=== PATIENT | male | born 1940 | race Caucasian/White ===

== ENCOUNTER → 2016-10-21 | Outpatient (CLI) | payer MEDICARE, OTHER ==
[~2016-10-21] MED LIST: ASPI-247 GT; ATEN50TA OR; SIMIVASTIN
[2016-10-21 08:56] LABS: Basophils # (auto) 0 uL; Basophils % (auto) 0.5 % (0.0-2.0); Eosinophils # (auto) 0.2 uL; Hematocrit 40.5 % (41.0-53.0); Hemoglobin 13.4 g/dL (13.5-17.5); Lymphocytes # (auto) 1.5 uL; Lymphocytes % (auto) 23.4 % (10.0-50.0); Mean Corpuscular Hemoglobin 30.3 pg (28.0-32.0); Mean Corpuscular Hgb Conc. 33.2 g/dL (32.0-36.0); Mean Corpuscular Volume 91.3 fL (80.0-100.0); Mean Platelet Volume 9.3 fL (7.4-10.4); Monocytes # (auto) 0.7 uL; Monocytes % (auto) 10.7 % (0.0-12.0); Neutrophils % (auto) 62.4 % (37.0-80.0); Platelet Count (auto) 189 10^3/uL (140-450); Red Cell Distribution Width 13.8 % (11.6-16.0); White Blood Cell 6.4 10^3/uL (4.4-10.8)
[2016-10-21 09:30] LABS: Albumin 3.8 g/dL (3.4-5.0); BUN/Creatinine Ratio 19.7; Bilirubin, Total 0.6 mg/dL (0.2-1.0); Calcium 8.6 mg/dL (8.5-10.1); Potassium 3.7 mmol/L (3.5-5.1); Total Protein 7.6 g/dL (6.4-8.2)
[2016-10-21 10:01] LABS: Urine RBC None Seen /hpf (0 - 3)
[2016-10-21 10:22] LABS: Urine Bilirubin Negative (Negative); Urine Blood Negative /uL (Negative); Urine Color Yellow (Yellow); Urine Glucose Normal (Normal); Urine Ketone Negative (Negative); Urine Nitrite Negative (Negative); Urine Squamous Epithelial Cell FEW /hpf (<5); Urine Urobilinogen Normal (Negative)
== END | disposition home or self-care (01) ==
LOC: LAB 07:39
PROVIDERS: ATTEND Internal Medicine
DX: R42 Dizziness and giddiness (principal); E11.9 Type 2 diabetes mellitus without complications
CPT/HCPCS: 36415; 80053; 80061; 81001; 82306; 84153; 84443; 85025

== ENCOUNTER 2016-11-25 07:54 | Emergency (ER) | payer MEDICARE, OTHER ==
[~2016-11-25] VITALS: Ht 167.6 cm; Wt 71.7 kg
[2016-11-25 09:07] LABS: Basophils # (auto) 0.1 uL; Basophils % (auto) 0.7 % (0.0-2.0); Eosinophils # (auto) 0.3 uL; Eosinophils % (auto) 2.4 % (0.0-7.0); Hematocrit 41.1 % (41.0-53.0); Hemoglobin 13.9 g/dL (13.5-17.5); Lymphocytes % (auto) 9.1 % (10.0-50.0); Mean Corpuscular Hemoglobin 30.6 pg (28.0-32.0); Mean Corpuscular Hgb Conc. 33.8 g/dL (32.0-36.0); Mean Corpuscular Volume 90.7 fL (80.0-100.0); Mean Platelet Volume 8.4 fL (7.4-10.4); Monocytes # (auto) 0.5 uL; Monocytes % (auto) 4.8 % (0.0-12.0); Neutrophils # (auto) 8.7 uL; Platelet Count (auto) 244 10^3/uL (140-450); Red Cell Distribution Width 13.6 % (11.6-16.0); White Blood Cell 10.5 10^3/uL (4.4-10.8)
[2016-11-25 09:26] LABS: Albumin 3.8 g/dL (3.4-5.0); BUN/Creatinine Ratio 19.5; Calcium 8.6 mg/dL (8.5-10.1); Potassium 3.8 mmol/L (3.5-5.1)
[2016-11-25 09:29] LABS: Bilirubin, Total 0.8 mg/dL (0.2-1.0); Total Protein 7.7 g/dL (6.4-8.2)
[2016-11-25 10:20] LABS: Partial Thromboplastin Time 26.2 sec (22.64-33.71)
[2016-11-25 13:47] LABS: INR 0.96 (0.9-1.15); Prothrombin Time 10.8 sec (9.37-12.3)
[2016-11-25 18:40] VITALS: BP 132/86
== END 2016-11-25 19:49 | disposition home or self-care (01) ==
LOC: ER 07:56
DX: K92.2 Gastrointestinal hemorrhage, unspecified (principal); T39.395A Adverse effect of other nonsteroidal anti-inflammatory drugs [NSAID], initial encounter; I25.10 Atherosclerotic heart disease of native coronary artery without angina pectoris; Z79.899 Other long term (current) drug therapy; Y92.89 Other specified places as the place of occurrence of the external cause
CPT/HCPCS: 36415; 71020; 74176; 80053; 85025; 85610; 85730; 94761

== ENCOUNTER → 2017-01-13 | Day surgery (SDC) | payer MEDICARE, OTHER ==
[2017-01-09 11:02] LABS: Basophils # (auto) 0 uL; Basophils % (auto) 0.7 % (0.0-2.0); CONDITION Y; Eosinophils # (auto) 0.3 uL; Eosinophils % (auto) 4.5 % (0.0-7.0); Hematocrit 40.3 % (41.0-53.0); Hemoglobin 13.7 g/dL (13.5-17.5); Lymphocytes # (auto) 1.5 uL; Lymphocytes % (auto) 22.2 % (10.0-50.0); Mean Corpuscular Hemoglobin 30.9 pg (28.0-32.0); Mean Corpuscular Volume 90.9 fL (80.0-100.0); Mean Platelet Volume 8.5 fL (7.4-10.4); Monocytes # (auto) 0.7 uL; Monocytes % (auto) 10.8 % (0.0-12.0); Neutrophils # (auto) 4.1 uL; Neutrophils % (auto) 61.8 % (37.0-80.0); Platelet Count (auto) 226 10^3/uL (140-450); Red Cell Distribution Width 13.9 % (11.6-16.0); White Blood Cell 6.6 10^3/uL (4.4-10.8)
[2017-01-09 11:17] LABS: INR 0.98 (0.9-1.15); Partial Thromboplastin Time 25.5 sec (22.64-33.71); Prothrombin Time 10.7 sec (9.37-12.3)
[~2017-01-13] VITALS: Ht 167.6 cm; Wt 77.1 kg
[~2017-01-13] MED LIST changes: -ASPI-247 GT; +ATEN100T PO; -ATEN50TA OR; +LIDOCAINE VISCOUS 2% 15ML UD ONE; +METF-370 PO; +MIDAZOLAM HCL 5 MG/ML-1ML VIAL ONE; +PANT40TA2 PO; +RANI-226 PO; -SIMIVASTIN; +SIMV80TA73 PO; +SODIUM CHLORIDE LOCK 10 ML ONE; +TRIA75TA55 PO; +diphenhdrAMINE HCL 50 MG/1 ML VL ONE; +fentaNYL CITRATE 100 MCG/2 ML VL ONE
[2017-01-13 10:33] VITALS: BP 133/75
== END | disposition home or self-care (01) ==
LOC: GI 07:00
PROVIDERS: ATTEND Internal Medicine Gastroenterology
DX: K44.9 Diaphragmatic hernia without obstruction or gangrene (principal); E11.9 Type 2 diabetes mellitus without complications; Z87.891 Personal history of nicotine dependence; Z90.49 Acquired absence of other specified parts of digestive tract
CPT/HCPCS: 36415; 43235; 82962; 85025; 85610; 85730; J2250

== ENCOUNTER → 2017-07-14 | Outpatient (CLI) | payer MEDICARE, OTHER ==
[~2017-07-14] MED LIST changes: -LIDOCAINE VISCOUS 2% 15ML UD ONE; -MIDAZOLAM HCL 5 MG/ML-1ML VIAL ONE; -SODIUM CHLORIDE LOCK 10 ML ONE; -diphenhdrAMINE HCL 50 MG/1 ML VL ONE; -fentaNYL CITRATE 100 MCG/2 ML VL ONE
== END | disposition home or self-care (01) ==
LOC: LAB 10:59
PROVIDERS: ATTEND Internal Medicine Gastroenterology
DX: K92.1 Melena (principal)
CPT/HCPCS: 82270

== ENCOUNTER → 2017-08-25 | Outpatient (CLI) | payer MEDICARE, OTHER ==
[~2017-08-25] MED LIST changes: +ADENOSINE 63 MG in GIVE UN-DILUTED 0 ML IV ONE; +ADENOSINE 90 MG/30 ML INJ IV ONE
[2017-08-25 12:17] LABS: Urine Blood Negative /uL (Negative)
[2017-08-25 12:29] LABS: Albumin 3.7 g/dL (3.4-5.0); BUN/Creatinine Ratio 22.2; Bilirubin, Total 0.6 mg/dL (0.2-1.0); Calcium 8.4 mg/dL (8.5-10.1); Potassium 3.9 mmol/L (3.5-5.1); Total Protein 7.9 g/dL (6.4-8.2)
[2017-08-25 12:30] LABS: Free T4 (Free Thyroxine) 1.09 ng/dL (0.89-1.76); Prostate Specific Antigen 0.31 ng/mL (0.0-4.0)
== END | disposition home or self-care (01) ==
LOC: Rad HDHVI 08:04
PROVIDERS: ATTEND Internal Medicine Cardiovascular Disease
DX: E78.00 Pure hypercholesterolemia, unspecified (principal); E78.5 Hyperlipidemia, unspecified; D64.9 Anemia, unspecified; I10 Essential (primary) hypertension; E03.9 Hypothyroidism, unspecified; E55.9 Vitamin D deficiency, unspecified; R53.81 Other malaise; R97.20 Elevated prostate specific antigen [PSA]; D51.9 Vitamin B12 deficiency anemia, unspecified; N39.0 Urinary tract infection, site not specified; E11.40 Type 2 diabetes mellitus with diabetic neuropathy, unspecified; E11.22 Type 2 diabetes mellitus with diabetic chronic kidney disease
CPT/HCPCS: 36415; 78452; 80053; 80061; 81003; 82306; 82607; 83036; 84153; 84403; 84439; 84443; 93005; 96374; 96375; A9500; J0153

== ENCOUNTER → 2017-08-27 | Outpatient (CLI) | payer MEDICARE, OTHER ==
[~2017-08-27] MED LIST changes: -ADENOSINE 63 MG in GIVE UN-DILUTED 0 ML IV ONE; -ADENOSINE 90 MG/30 ML INJ IV ONE
[2017-08-27 16:49] LABS: Basophils # (auto) 0.1 uL; Basophils % (auto) 0.8 % (0.0-2.0); Eosinophils # (auto) 0.3 uL; Eosinophils % (auto) 3.7 % (0.0-7.0); Hematocrit 40.7 % (41.0-53.0); Hemoglobin 13.6 g/dL (13.5-17.5); Lymphocytes # (auto) 1.7 uL; Lymphocytes % (auto) 23.5 % (10.0-50.0); Mean Corpuscular Hemoglobin 30.9 pg (28.0-32.0); Mean Corpuscular Hgb Conc. 33.4 g/dL (32.0-36.0); Mean Corpuscular Volume 92.6 fL (80.0-100.0); Monocytes # (auto) 0.6 uL; Monocytes % (auto) 9.1 % (0.0-12.0); Neutrophils # (auto) 4.5 uL; Neutrophils % (auto) 62.9 % (37.0-80.0); Nucleated Red Blood Cells % 0.3 %; Platelet Count (auto) 180 10^3/uL (140-450); Red Cell Distribution Width 13.7 % (11.8-14.3); White Blood Cell 7.1 10^3/uL (4.4-10.8)
== END | disposition home or self-care (01) ==
LOC: Rad HDHVI 11:50
PROVIDERS: ATTEND Internal Medicine Cardiovascular Disease
DX: I07.1 Rheumatic tricuspid insufficiency (principal); E78.5 Hyperlipidemia, unspecified; I65.23 Occlusion and stenosis of bilateral carotid arteries; I10 Essential (primary) hypertension; D64.9 Anemia, unspecified; Z87.891 Personal history of nicotine dependence
CPT/HCPCS: 36415; 85025; 93306; 93880

== ENCOUNTER → 2018-01-20 | Outpatient (CLI) | payer MEDICARE, OTHER ==
[~2018-01-20] MED LIST changes: +IOHEXOL 350 MG/ML 100ML IJ ONE; +SODIUM CHLORIDE 0.9% 250 ML IV SCH
[2018-01-20 09:00] VITALS: BP 103/70
[2018-01-20 10:15] VITALS: BP 104/73
== END | disposition home or self-care (01) ==
LOC: Rad HDHVI 08:36
PROVIDERS: ATTEND Internal Medicine Cardiovascular Disease
DX: I71.4 Abdominal aortic aneurysm, without rupture (principal); I13.0 Hypertensive heart and chronic kidney disease with heart failure and stage 1 through stage 4 chronic kidney disease, or unspecified chronic kidney disease; E11.22 Type 2 diabetes mellitus with diabetic chronic kidney disease; N18.9 Chronic kidney disease, unspecified; I50.9 Heart failure, unspecified; I70.0 Atherosclerosis of aorta; I25.10 Atherosclerotic heart disease of native coronary artery without angina pectoris; D64.9 Anemia, unspecified; E78.5 Hyperlipidemia, unspecified; E03.9 Hypothyroidism, unspecified; E78.00 Pure hypercholesterolemia, unspecified; E11.40 Type 2 diabetes mellitus with diabetic neuropathy, unspecified; Z87.891 Personal history of nicotine dependence
CPT/HCPCS: 71260; 82565; 96360; G0463; J7050; Q9967

== ENCOUNTER → 2018-07-08 | Outpatient (CLI) | payer MEDICARE, OTHER ==
[~2018-07-08] MED LIST changes: -IOHEXOL 350 MG/ML 100ML IJ ONE; -SODIUM CHLORIDE 0.9% 250 ML IV SCH
== END | disposition home or self-care (01) ==
LOC: Rad HDHVI 10:15
PROVIDERS: ATTEND Internal Medicine Cardiovascular Disease
DX: I08.1 Rheumatic disorders of both mitral and tricuspid valves (principal); I10 Essential (primary) hypertension
CPT/HCPCS: 93306

== ENCOUNTER 2018-11-10 15:30 | Inpatient (IN) | payer MEDICARE, OTHER | END 2018-11-14 04:05 | LOC: ER 15:30 → TELE 18:39 → WEST WING 20:47 | DX: S72.114A Nondisplaced fracture of greater trochanter of right femur, initial encounter for closed fracture (principal); I10 Essential (primary) hypertension; E11.9 Type 2 diabetes mellitus without complications; Z79.84 Long term (current) use of oral hypoglycemic drugs; M19.90 Unspecified osteoarthritis, unspecified site; M81.0 Age-related osteoporosis without current pathological fracture; D64.9 Anemia, unspecified; E78.00 Pure hypercholesterolemia, unspecified ==

== ENCOUNTER → 2019-08-10 | Outpatient (CLI) | payer MEDICARE, OTHER ==
[~2019-08-10] VITALS: Ht 167.6 cm; Wt 70.8 kg
[~2019-08-10] MED LIST changes: +ADENOSINE 59 MG in GIVE UN-DILUTED 0 ML IV ONE; +ADENOSINE 90 MG/30 ML INJ IV ONE; -ATEN100T PO; +ATEN50TA PO; +ATO40T PO; +DOCU100T15 PO; -RANI-226 PO; +RANI300C7 PO; -SIMV80TA73 PO
[2019-08-10 16:00] LABS: Urine Blood Negative /uL (Negative); Urine Specific Gravity 1.013 (1.001-1.035)
[2019-08-10 16:07] LABS: Basophils # (auto) 0 uL; Basophils % (auto) 0.5 % (0.0-2.0); Eosinophils # (auto) 0.2 uL; Eosinophils % (auto) 2.6 % (0.0-7.0); Hematocrit 39.3 % (41.0-53.0); Hemoglobin 13.1 g/dL (13.5-17.5); Lymphocytes # (auto) 1.5 uL; Lymphocytes % (auto) 18.1 % (10.0-50.0); Mean Corpuscular Hemoglobin 30.8 pg (28.0-32.0); Mean Corpuscular Hgb Conc. 33.3 g/dL (32.0-36.0); Mean Corpuscular Volume 92.4 fL (80.0-100.0); Monocytes # (auto) 0.5 uL; Neutrophils # (auto) 6.1 uL; Neutrophils % (auto) 72.8 % (37.0-80.0); Platelet Count (auto) 204 10^3/uL (140-450); Red Blood Cells 4.25 10^6/uL (4.5-5.90); Red Cell Distribution Width 14.6 % (11.8-14.3); White Blood Cell 8.3 10^3/uL (4.4-10.8)
[2019-08-10 16:11] LABS: Potassium 3.9 mmol/L (3.5-5.1)
[2019-08-10 16:16] LABS: Prostate Specific Antigen 0.36 ng/mL (0.0-4.0)
[2019-08-10 16:28] LABS: Albumin 3.5 g/dL (3.4-5.0); BUN/Creatinine Ratio 22.1; Bilirubin, Total 0.5 mg/dL (0.2-1.0); Calcium 8.7 mg/dL (8.5-10.1); Total Protein 7.3 g/dL (6.4-8.2)
== END | disposition home or self-care (01) ==
LOC: Rad HDHVI 13:01
PROVIDERS: ATTEND Internal Medicine Cardiovascular Disease
DX: Z00.00 Encounter for general adult medical examination without abnormal findings (principal); E03.9 Hypothyroidism, unspecified; K90.9 Intestinal malabsorption, unspecified; C61 Malignant neoplasm of prostate; E29.1 Testicular hypofunction; N39.0 Urinary tract infection, site not specified; D51.9 Vitamin B12 deficiency anemia, unspecified; Z79.899 Other long term (current) drug therapy
CPT/HCPCS: 36415; 78452; 80053; 80061; 81003; 82306; 82607; 83036; 84153; 84403; 84439; 84443; 85025; 93005; 93306; 96374; 96375; A9500; J0153

== ENCOUNTER → 2019-08-11 | Outpatient (CLI) | payer MEDICARE, OTHER ==
[~2019-08-11] MED LIST changes: -ADENOSINE 59 MG in GIVE UN-DILUTED 0 ML IV ONE; -ADENOSINE 90 MG/30 ML INJ IV ONE; +IOHEXOL 350 MG/ML 100ML IJ ONE; +READI-CAT 2 (BARIUM SULF)(VANILLA SMOOTHIE) 450ML ONE
[2019-08-11 13:35] VITALS: BP_SYST 123; BP_SYST 124; BP_DIAS 59; BP_DIAS 64
--- NOTE | 2019-08-11 14:00 | NUR ---
IV insertion IV access obtained, via clean sterile technique by inserting 22 gauge catheter at after attempt(s). IV secured properly. No trauma to site. Patient tolerated procedure well. PLACED BY SALIMA GRULLON
--- NOTE | 2019-08-11 14:28 | NUR ---
IV removal IV DC'd with sterile technique, catheter fully intact. Pressure dressing applied to site. Patient tolerated procedure well. Discharged with aftercare instructions per MD. NOTE:
--- NOTE | 2019-08-11 14:29 | NUR ---
Discharge Instructions See e-MAR for any mediations given with this visit. Patient education given on disease process. Patient verbalized understanding. Previous labs reviewed. Patient discharged in stable condition with after care instructions and follow up appointment. PT HAD CT OF THE ABDOMEN WITH ORAL AND IV CONTRAST TOLERATED WELL
[2019-08-11 15:33] VITALS: BP 129/64
== END | disposition home or self-care (01) ==
LOC: Rad HDHVI 13:31
PROVIDERS: ATTEND Internal Medicine Cardiovascular Disease
DX: I70.0 Atherosclerosis of aorta (principal); E11.9 Type 2 diabetes mellitus without complications; N28.1 Cyst of kidney, acquired; K44.9 Diaphragmatic hernia without obstruction or gangrene; K57.30 Diverticulosis of large intestine without perforation or abscess without bleeding; K59.00 Constipation, unspecified; R10.9 Unspecified abdominal pain; R11.10 Vomiting, unspecified; R42 Dizziness and giddiness
CPT/HCPCS: 74177; Q9967

== ENCOUNTER → 2019-09-03 | Outpatient (CLI) | payer MEDICARE, OTHER ==
[~2019-09-03] MED LIST changes: -READI-CAT 2 (BARIUM SULF)(VANILLA SMOOTHIE) 450ML ONE
[2019-09-03 08:55] VITALS: BP 117/62
[2019-09-03 11:00] VITALS: BP 149/65
== END | disposition home or self-care (01) ==
LOC: Rad HDHVI 08:34
PROVIDERS: ATTEND Internal Medicine Cardiovascular Disease
DX: S22.31XA Fracture of one rib, right side, initial encounter for closed fracture (principal); E11.9 Type 2 diabetes mellitus without complications; J98.11 Atelectasis; I25.10 Atherosclerotic heart disease of native coronary artery without angina pectoris; I70.0 Atherosclerosis of aorta; K44.9 Diaphragmatic hernia without obstruction or gangrene; K57.30 Diverticulosis of large intestine without perforation or abscess without bleeding; N28.1 Cyst of kidney, acquired; M85.80 Other specified disorders of bone density and structure, unspecified site; X58.XXXA Exposure to other specified factors, initial encounter; Y93.89 Activity, other specified; Y92.89 Other specified places as the place of occurrence of the external cause; Y99.8 Other external cause status
CPT/HCPCS: 36415; 71260; 82565; G0463; Q9967

== ENCOUNTER → 2020-01-17 | Outpatient (CLI) | payer MEDICARE, OTHER ==
[~2020-01-17] MED LIST changes: -IOHEXOL 350 MG/ML 100ML IJ ONE
== END | disposition home or self-care (01) ==
LOC: Rad HDHVI 08:49
PROVIDERS: ATTEND Internal Medicine Cardiovascular Disease
DX: M17.11 Unilateral primary osteoarthritis, right knee (principal); M25.561 Pain in right knee; M85.88 Other specified disorders of bone density and structure, other site; M25.461 Effusion, right knee
CPT/HCPCS: 73562

== ENCOUNTER → 2020-04-07 | Outpatient (CLI) | payer MEDICARE, OTHER ==
[2020-04-07 12:20] LABS: Urine Blood Negative /uL (Negative); Urine Specific Gravity 1.016 (1.001-1.035)
[2020-04-07 12:44] LABS: Basophils # (auto) 0.1 10 ^3/uL (0-0.2); Basophils % (auto) 0.9 % (0.0-2.0); Eosinophils # (auto) 0.2 10 ^3/uL (0-0.8); Eosinophils % (auto) 2.8 % (0.0-7.0); Hematocrit 40.3 % (41.0-53.0); Hemoglobin 13.1 g/dL (13.5-17.5); Lymphocytes # (auto) 1.4 10 ^3/uL (0.4-5.4); Lymphocytes % (auto) 20.3 % (10.0-50.0); Mean Corpuscular Hemoglobin 29.8 pg (28.0-32.0); Mean Corpuscular Hgb Conc. 32.5 g/dL (32.0-36.0); Mean Corpuscular Volume 91.9 fL (80.0-100.0); Monocytes # (auto) 0.5 10 ^3/uL (0-1.3); Monocytes % (auto) 7.1 % (0.0-12.0); Neutrophils # (auto) 4.8 10 ^3/uL (1.6-8.6); Neutrophils % (auto) 68.9 % (37.0-80.0); Platelet Count (auto) 192 10^3/uL (140-450); Red Blood Cells 4.39 10^6/uL (4.5-5.90); Red Cell Distribution Width 15.5 % (11.8-14.3)
[2020-04-07 12:45] LABS: Free T4 (Free Thyroxine) 1.01 ng/dL (0.89-1.76); Prostate Specific Antigen 0.3 ng/mL (0.0-4.0)
[2020-04-07 12:49] LABS: Albumin 3.4 g/dL (3.4-5.0); BUN/Creatinine Ratio 17.6; Bilirubin, Total 0.6 mg/dL (0.2-1.0); Calcium 8.6 mg/dL (8.5-10.1); Total Protein 7.1 g/dL (6.4-8.2)
== END | disposition home or self-care (01) ==
LOC: LAB 08:19
PROVIDERS: ATTEND Internal Medicine Cardiovascular Disease
DX: C61 Malignant neoplasm of prostate (principal); D51.3 Other dietary vitamin B12 deficiency anemia; I10 Essential (primary) hypertension; E11.9 Type 2 diabetes mellitus without complications; D64.9 Anemia, unspecified; E55.9 Vitamin D deficiency, unspecified; R00.2 Palpitations; R53.1 Weakness; R30.0 Dysuria
CPT/HCPCS: 36415; 80053; 80061; 81003; 82306; 82607; 83036; 84153; 84403; 84439; 84443; 85025

== ENCOUNTER → 2020-08-03 | Outpatient (CLI) | payer MEDICARE, OTHER | END | disposition home or self-care (01) | LOC: Rad HDHVI 08:20 | PROVIDERS: ATTEND Internal Medicine Cardiovascular Disease | DX: I08.2 Rheumatic disorders of both aortic and tricuspid valves (principal); R06.02 Shortness of breath; J44.9 Chronic obstructive pulmonary disease, unspecified | CPT/HCPCS: 93306 ==

== ENCOUNTER → 2020-08-10 | Outpatient (CLI) | payer MEDICARE, OTHER ==
[~2020-08-10] VITALS: Ht 167.6 cm; Wt 72.6 kg
[~2020-08-10] MED LIST changes: +ADENOSINE 61 MG in GIVE UN-DILUTED 0 ML IV ONE; +ADENOSINE 90 MG/30 ML INJ IV ONE
== END | disposition home or self-care (01) ==
LOC: Rad HDHVI 08:06
PROVIDERS: ATTEND Internal Medicine Cardiovascular Disease
DX: I10 Essential (primary) hypertension (principal); E78.00 Pure hypercholesterolemia, unspecified; R06.02 Shortness of breath; E11.9 Type 2 diabetes mellitus without complications
CPT/HCPCS: 78452; 93005; 96374; 96375; A9500; J0153

== ENCOUNTER → 2020-08-15 | Outpatient (CLI) | payer MEDICARE, OTHER ==
[~2020-08-15] MED LIST changes: -ADENOSINE 61 MG in GIVE UN-DILUTED 0 ML IV ONE; -ADENOSINE 90 MG/30 ML INJ IV ONE
[2020-08-15 11:34] LABS: Basophils # (auto) 0 10 ^3/uL (0-0.2); Basophils % (auto) 0.8 % (0.0-2.0); Eosinophils # (auto) 0.2 10 ^3/uL (0-0.8); Eosinophils % (auto) 3.1 % (0.0-7.0); Hematocrit 36.3 % (41.0-53.0); Hemoglobin 12.2 g/dL (13.5-17.5); Lymphocytes # (auto) 1.3 10 ^3/uL (0.4-5.4); Lymphocytes % (auto) 22.3 % (10.0-50.0); Mean Corpuscular Hemoglobin 30.2 pg (28.0-32.0); Mean Corpuscular Hgb Conc. 33.7 g/dL (32.0-36.0); Mean Corpuscular Volume 89.7 fL (80.0-100.0); Monocytes # (auto) 0.6 10 ^3/uL (0-1.3); Monocytes % (auto) 10.1 % (0.0-12.0); Neutrophils # (auto) 3.7 10 ^3/uL (1.6-8.6); Neutrophils % (auto) 63.7 % (37.0-80.0); Nucleated Red Blood Cells % 0.1 %; Platelet Count (auto) 204 10^3/uL (140-450); Red Blood Cells 4.04 10^6/uL (4.5-5.90); Red Cell Distribution Width 14.5 % (11.8-14.3); White Blood Cell 5.8 10^3/uL (4.4-10.8)
[2020-08-15 11:36] LABS: Urine Blood Negative /uL (Negative); Urine Specific Gravity 1.018 (1.001-1.035)
[2020-08-15 11:46] LABS: Free T4 (Free Thyroxine) 1.05 ng/dL (0.89-1.76); Prostate Specific Antigen 0.26 ng/mL (0.0-4.0)
[2020-08-15 11:54] LABS: Potassium 3.8 mmol/L (3.5-5.1)
[2020-08-15 12:06] LABS: Albumin 3.3 g/dL (3.4-5.0); BUN/Creatinine Ratio 16.2; Bilirubin, Total 0.5 mg/dL (0.2-1.0); Calcium 8.2 mg/dL (8.5-10.1); Total Protein 7.3 g/dL (6.4-8.2)
== END | disposition home or self-care (01) ==
LOC: LAB 08:25
PROVIDERS: ATTEND Internal Medicine Cardiovascular Disease
DX: C61 Malignant neoplasm of prostate (principal); D51.3 Other dietary vitamin B12 deficiency anemia; I10 Essential (primary) hypertension; E11.9 Type 2 diabetes mellitus without complications; E55.9 Vitamin D deficiency, unspecified; D64.9 Anemia, unspecified; R00.2 Palpitations; R53.1 Weakness; R30.0 Dysuria
CPT/HCPCS: 36415; 80053; 80061; 81003; 82306; 82607; 83036; 84153; 84403; 84439; 84443; 85025

== ENCOUNTER → 2021-07-02 | Outpatient (CLI) | payer MEDICARE, OTHER ==
[2021-07-02 11:27] LABS: Basophils # (auto) 0.1 10 ^3/uL (0-0.2); Basophils % (auto) 0.8 % (0.0-2.0); Eosinophils # (auto) 0.3 10 ^3/uL (0-0.8); Eosinophils % (auto) 3.8 % (0.0-7.0); Hematocrit 39.2 % (41.0-53.0); Hemoglobin 12.4 g/dL (13.5-17.5); Lymphocytes # (auto) 1.3 10 ^3/uL (0.4-5.4); Mean Corpuscular Hemoglobin 28.9 pg (28.0-32.0); Mean Corpuscular Hgb Conc. 31.6 g/dL (32.0-36.0); Mean Corpuscular Volume 91.3 fL (80.0-100.0); Monocytes # (auto) 0.6 10 ^3/uL (0-1.3); Monocytes % (auto) 8.6 % (0.0-12.0); Neutrophils # (auto) 4.7 10 ^3/uL (1.6-8.6); Neutrophils % (auto) 67.8 % (37.0-80.0); Red Blood Cells 4.29 10^6/uL (4.5-5.90); White Blood Cell 6.9 10^3/uL (4.4-10.8)
[2021-07-02 11:40] LABS: Albumin 3.4 g/dL (3.4-5.0); Calcium 8.6 mg/dL (8.5-10.1); Potassium 4.2 mmol/L (3.5-5.1)
[2021-07-02 11:41] LABS: Urine Blood Negative /uL (Negative); Urine Specific Gravity 1.016 (1.001-1.035)
[2021-07-02 11:46] LABS: BUN/Creatinine Ratio 21.5; Bilirubin, Total 0.6 mg/dL (0.2-1.0); Total Protein 7.3 g/dL (6.4-8.2)
[2021-07-02 11:59] LABS: Free T4 (Free Thyroxine) 1.15 ng/dL (0.89-1.76); Prostate Specific Antigen 0.31 ng/mL (0.0-4.0)
== END | disposition home or self-care (01) ==
LOC: LAB 08:13
PROVIDERS: ATTEND Internal Medicine Cardiovascular Disease
DX: C61 Malignant neoplasm of prostate (principal); D51.3 Other dietary vitamin B12 deficiency anemia; R53.1 Weakness; R30.0 Dysuria; R00.2 Palpitations; E11.9 Type 2 diabetes mellitus without complications; E55.9 Vitamin D deficiency, unspecified; I10 Essential (primary) hypertension; D64.9 Anemia, unspecified
CPT/HCPCS: 36415; 80053; 80061; 81003; 82306; 82607; 83036; 84153; 84403; 84439; 84443; 85025

== ENCOUNTER → 2021-07-31 | Outpatient (CLI) | payer MEDICARE, OTHER ==
[2021-07-31 11:39] LABS: Potassium 3.9 mmol/L (3.5-5.1)
[2021-07-31 11:57] LABS: BUN/Creatinine Ratio 19.7; Calcium 8.8 mg/dL (8.5-10.1); Uric Acid 4.5 mg/dL (3.5-7.2)
== END | disposition home or self-care (01) ==
LOC: Rad HDHVI 10:28
PROVIDERS: ATTEND Internal Medicine
DX: M17.11 Unilateral primary osteoarthritis, right knee (principal); M10.9 Gout, unspecified; I70.90 Unspecified atherosclerosis; Z96.641 Presence of right artificial hip joint; M25.551 Pain in right hip
CPT/HCPCS: 36415; 73562; 80048; 84550

== ENCOUNTER → 2021-09-03 | Outpatient (CLI) | payer MEDICARE, OTHER | END | disposition home or self-care (01) | LOC: Rad HDHVI 08:40 | PROVIDERS: ATTEND Internal Medicine Cardiovascular Disease | DX: I08.1 Rheumatic disorders of both mitral and tricuspid valves (principal); R00.2 Palpitations; E78.5 Hyperlipidemia, unspecified | CPT/HCPCS: 93306 ==

== ENCOUNTER → 2021-09-12 | Outpatient (CLI) | payer MEDICARE, OTHER | END | disposition home or self-care (01) | LOC: Rad HDHVI 08:43 | PROVIDERS: ATTEND Internal Medicine Cardiovascular Disease | DX: I65.23 Occlusion and stenosis of bilateral carotid arteries (principal); I10 Essential (primary) hypertension; E78.5 Hyperlipidemia, unspecified | CPT/HCPCS: 93880 ==

== ENCOUNTER → 2021-09-24 | Outpatient (CLI) | payer MEDICARE, OTHER ==
[~2021-09-24] VITALS: Ht 167.6 cm; Wt 70.8 kg
[~2021-09-24] MED LIST changes: +ADENOSINE 59 MG in GIVE UN-DILUTED 0 ML IV ONE; +ADENOSINE 90 MG/30 ML INJ IV ONE
== END | disposition home or self-care (01) ==
LOC: Rad HDHVI 07:58
PROVIDERS: ATTEND Internal Medicine Cardiovascular Disease
DX: R07.9 Chest pain, unspecified (principal); R06.02 Shortness of breath
CPT/HCPCS: 78452; 93005; 96374; 96375; A9500; J0153

== ENCOUNTER 2022-03-09 17:43 | Emergency (ER) | payer MEDICARE, OTHER ==
[~2022-03-09] VITALS: Ht 167.6 cm; Wt 75.0 kg
[~2022-03-09 17:43] MED LIST changes: -ADENOSINE 59 MG in GIVE UN-DILUTED 0 ML IV ONE; -ADENOSINE 90 MG/30 ML INJ IV ONE
[2022-03-10 01:00] VITALS: BP 133/82
== END 2022-03-10 01:17 | disposition home or self-care (01) ==
LOC: ER 17:43
DX: S03.01XA Dislocation of jaw, right side, initial encounter (principal); J44.9 Chronic obstructive pulmonary disease, unspecified; E78.5 Hyperlipidemia, unspecified; E11.9 Type 2 diabetes mellitus without complications; I10 Essential (primary) hypertension; X58.XXXA Exposure to other specified factors, initial encounter; Y93.89 Activity, other specified; Y92.89 Other specified places as the place of occurrence of the external cause; Y99.8 Other external cause status

== ENCOUNTER → 2022-03-25 | Outpatient (CLI) | payer MEDICARE, OTHER | END | disposition home or self-care (01) | LOC: Rad HDHVI 14:20 | PROVIDERS: ATTEND Internal Medicine Cardiovascular Disease | DX: M26.642 Arthritis of left temporomandibular joint (principal); R52 Pain, unspecified | CPT/HCPCS: 70330 ==

== ENCOUNTER → 2022-06-03 | Outpatient (CLI) | payer MEDICARE, OTHER ==
[2022-06-03 11:59] LABS: Basophils # (auto) 0.1 10 ^3/uL (0-0.2); Eosinophils # (auto) 0.1 10 ^3/uL (0-0.8); Eosinophils % (auto) 2.4 % (0.0-7.0); Hematocrit 34.7 % (41.0-53.0); Hemoglobin 10.4 g/dL (13.5-17.5); Lymphocytes # (auto) 1.2 10 ^3/uL (0.4-5.4); Lymphocytes % (auto) 23.3 % (10.0-50.0); Mean Corpuscular Hemoglobin 23.7 pg (28.0-32.0); Mean Corpuscular Hgb Conc. 29.8 g/dL (32.0-36.0); Mean Corpuscular Volume 79.4 fL (80.0-100.0); Monocytes # (auto) 0.5 10 ^3/uL (0-1.3); Monocytes % (auto) 10.3 % (0.0-12.0); Neutrophils # (auto) 3.2 10 ^3/uL (1.6-8.6); Red Blood Cells 4.37 10^6/uL (4.5-5.90); Red Cell Distribution Width 19.7 % (11.8-14.3); White Blood Cell 5.1 10^3/uL (4.4-10.8)
[2022-06-03 16:36] LABS: Alanine Aminotransferase 11 U/L (16-61); Albumin 3.3 g/dL (3.4-5.0); Alkaline Phosphatase 64 U/L (45-117); Anion Gap 15 (5-15); Aspartate Aminotransferase 13 U/L (15-37); BUN/Creatinine Ratio 16.7; Bilirubin, Total 0.7 mg/dL (0.2-1.0); Blood Urea Nitrogen 21 mg/dL (7-18); Calcium 8.6 mg/dL (8.5-10.1); Carbon Dioxide 21 mmol/L (21-32); Chloride 107 mmol/L (98-107); Cholesterol 98 mg/dL (< 200); GFR African American 70 mL/min; GFR Non-African American 58 mL/min; Glucose 113 mg/dL (74-106); HDL Cholesterol 45 mg/dL (40-59); LDL Cholesterol 51 mg/dL (< 100); Potassium 4.2 mmol/L (3.5-5.1); Sodium 143 mmol/L (136-145); Total Protein 7.1 g/dL (6.4-8.2); Triglycerides 88 mg/dL (< 150)
[2022-06-04 00:41] LABS: Free T4 (Free Thyroxine) 1.12 ng/dL (0.89-1.76); Prostate Specific Antigen 0.3 ng/mL (0.0-4.0)
== END | disposition home or self-care (01) ==
LOC: LAB 08:23
PROVIDERS: ATTEND Internal Medicine Cardiovascular Disease
DX: I50.33 Acute on chronic diastolic (congestive) heart failure (principal); E55.9 Vitamin D deficiency, unspecified
CPT/HCPCS: 36415; 80053; 80061; 82306; 82607; 83036; 84403; 84439; 84443; 85025

== ENCOUNTER → 2022-06-19 | Outpatient (CLI) | payer MEDICARE, OTHER ==
[~2022-06-19] MED LIST changes: +READI-CAT 2 (BARIUM SULF)(VANILLA SMOOTHIE) 450ML ONE
== END | disposition home or self-care (01) ==
LOC: Rad HDHVI 08:16
PROVIDERS: ATTEND Internal Medicine Cardiovascular Disease
DX: K57.30 Diverticulosis of large intestine without perforation or abscess without bleeding (principal); K44.9 Diaphragmatic hernia without obstruction or gangrene; N28.1 Cyst of kidney, acquired; N20.0 Calculus of kidney; M43.8X5 Other specified deforming dorsopathies, thoracolumbar region
CPT/HCPCS: 74176

== ENCOUNTER → 2022-11-12 | Outpatient (CLI) | payer MEDICARE, OTHER ==
[~2022-11-12] MED LIST changes: -READI-CAT 2 (BARIUM SULF)(VANILLA SMOOTHIE) 450ML ONE
[2022-11-12 08:09] LABS: Basophils # (auto) 0.1 10 ^3/uL (0-0.2); Eosinophils # (auto) 0.1 10 ^3/uL (0-0.8); Eosinophils % (auto) 1.8 % (0.0-7.0); Lymphocytes # (auto) 1.3 10 ^3/uL (0.4-5.4); Neutrophils # (auto) 3.9 10 ^3/uL (1.6-8.6); Nucleated Red Blood Cells % 0.1 %
[2022-11-12 08:10] LABS: Basophils % (auto) 1.4 % (0.0-2.0); Hematocrit 33.3 % (41.0-53.0); Hemoglobin 10.7 g/dL (13.5-17.5); Lymphocytes % (auto) 21.2 % (10.0-50.0); Mean Corpuscular Hemoglobin 25.7 pg (28.0-32.0); Mean Corpuscular Hgb Conc. 32.2 g/dL (32.0-36.0); Mean Corpuscular Volume 79.8 fL (80.0-100.0); Monocytes # (auto) 0.6 10 ^3/uL (0-1.3); Monocytes % (auto) 9.5 % (0.0-12.0); Neutrophils % (auto) 66.1 % (37.0-80.0); Red Blood Cells 4.18 10^6/uL (4.5-5.90); Red Cell Distribution Width 17.2 % (11.8-14.3)
[2022-11-12 08:34] LABS: Albumin 3.7 g/dL (3.4-5.0); Calcium 8.8 mg/dL (8.5-10.1); Potassium 4.2 mmol/L (3.5-5.1)
[2022-11-12 08:39] LABS: BUN/Creatinine Ratio 22.7 (10.0-20.0); Bilirubin, Direct 0.2 mg/dL (0-0.2); Bilirubin, Total 0.6 mg/dL (0.2-1.0); Total Protein 7.6 g/dL (6.4-8.2)
[2022-11-12 09:18] LABS: Free T4 (Free Thyroxine) 0.94 ng/dL (0.89-1.76)
[2022-11-12 09:19] LABS: Prostate Specific Antigen 0.29 ng/mL (0.0-4.0)
[2022-11-12 14:26] LABS: % Iron Saturation 7.6 % (20-55)
[2022-11-13 10:19] LABS: Urine WBC None Seen /hpf (0 - 3)
[2022-11-13 10:52] LABS: Urine Bacteria NONE SEEN /hpf (None Seen); Urine Blood Negative /uL (Negative); Urine Specific Gravity 1.018 (1.001-1.035)
== END | disposition home or self-care (01) ==
LOC: LAB 07:44
PROVIDERS: ATTEND Internal Medicine Cardiovascular Disease
DX: C61 Malignant neoplasm of prostate (principal); I10 Essential (primary) hypertension; D51.3 Other dietary vitamin B12 deficiency anemia; D64.9 Anemia, unspecified; E11.9 Type 2 diabetes mellitus without complications; E55.9 Vitamin D deficiency, unspecified; R00.2 Palpitations; R53.1 Weakness; R30.0 Dysuria
CPT/HCPCS: 36415; 80053; 80061; 80076; 81001; 82306; 82607; 83036; 83540; 83550; 84153; 84403; 84439; 84443; 85025

== ENCOUNTER → 2022-11-29 | Outpatient (CLI) | payer MEDICARE, OTHER | END | disposition home or self-care (01) | LOC: Rad HDHVI 09:49 | PROVIDERS: ATTEND Internal Medicine Cardiovascular Disease | DX: I08.3 Combined rheumatic disorders of mitral, aortic and tricuspid valves (principal); R00.2 Palpitations; I10 Essential (primary) hypertension | CPT/HCPCS: 93306 ==

== ENCOUNTER → 2022-12-04 | Outpatient (CLI) | payer MEDICARE, OTHER ==
[~2022-12-04] VITALS: Ht 167.6 cm; Wt 64.9 kg
[~2022-12-04] MED LIST changes: +ADENOSINE 55 MG in GIVE UN-DILUTED 0 ML IV ONE; +ADENOSINE 90 MG/30 ML INJ IV ONE
== END | disposition home or self-care (01) ==
LOC: Rad HDHVI 08:55
PROVIDERS: ATTEND Internal Medicine Cardiovascular Disease
DX: I10 Essential (primary) hypertension (principal); I48.0 Paroxysmal atrial fibrillation; R00.2 Palpitations; E78.5 Hyperlipidemia, unspecified; E11.9 Type 2 diabetes mellitus without complications; D64.9 Anemia, unspecified; F17.210 Nicotine dependence, cigarettes, uncomplicated; G45.9 Transient cerebral ischemic attack, unspecified
CPT/HCPCS: 78452; 93005; 96374; 96375; A9500; J0153

== ENCOUNTER → 2022-12-18 | Outpatient (CLI) | payer MEDICARE, OTHER ==
[~2022-12-18] MED LIST changes: -ADENOSINE 55 MG in GIVE UN-DILUTED 0 ML IV ONE; -ADENOSINE 90 MG/30 ML INJ IV ONE; +SODIUM FERR GLUC 62.5MG/5ML 125 MG in SODIUM CHL 0.9% 100 ML IV ONE; +SODIUM FERRIC GLUC CPLEX 62.5MG/5ML VIAL IV ONE
[2022-12-18 11:55] VITALS: BP 144/70
[2022-12-18 13:23] VITALS: BP 116/68
== END | disposition home or self-care (01) ==
LOC: Rad HDHVI 12:07
PROVIDERS: ATTEND Internal Medicine Cardiovascular Disease
DX: E61.1 Iron deficiency (principal); D51.9 Vitamin B12 deficiency anemia, unspecified; R53.83 Other fatigue; I10 Essential (primary) hypertension; E11.9 Type 2 diabetes mellitus without complications; Z85.46 Personal history of malignant neoplasm of prostate
CPT/HCPCS: 96365; G0463; J2916

== ENCOUNTER → 2022-12-25 | Outpatient (CLI) | payer MEDICARE, OTHER ==
[~2022-12-25] VITALS: Ht 152.4 cm; Wt 63.5 kg
[2022-12-25 12:47] VITALS: BP 110/63
[2022-12-25 14:03] VITALS: BP 146/68
== END | disposition home or self-care (01) ==
LOC: CHF HDHVI 12:44
PROVIDERS: ATTEND Internal Medicine Cardiovascular Disease
DX: D50.9 Iron deficiency anemia, unspecified (principal); R53.83 Other fatigue; I10 Essential (primary) hypertension; E11.9 Type 2 diabetes mellitus without complications; I48.0 Paroxysmal atrial fibrillation; E78.5 Hyperlipidemia, unspecified; Z85.46 Personal history of malignant neoplasm of prostate; Z87.891 Personal history of nicotine dependence; Z86.73 Personal history of transient ischemic attack (TIA), and cerebral infarction without residual deficits
CPT/HCPCS: 96365; G0463; J2916

== ENCOUNTER → 2023-01-01 | Outpatient (CLI) | payer MEDICARE, OTHER ==
[~2023-01-01] MED LIST changes: +CYANOCOBALAMIN (B-12) 1000 MCG/1 ML VIAL IM ONE; +CYANOCOBALAMIN (B-12) 1000 MCG/1 ML VIAL ONE; -SODIUM FERR GLUC 62.5MG/5ML 125 MG in SODIUM CHL 0.9% 100 ML IV ONE; -SODIUM FERRIC GLUC CPLEX 62.5MG/5ML VIAL IV ONE
[2023-01-01 12:50] VITALS: BP 136/77
[2023-01-01 13:15] VITALS: BP 139/66
== END | disposition home or self-care (01) ==
LOC: CHF HDHVI 12:42
PROVIDERS: ATTEND Internal Medicine Cardiovascular Disease
DX: D50.9 Iron deficiency anemia, unspecified (principal); I10 Essential (primary) hypertension; I42.0 Dilated cardiomyopathy; E78.5 Hyperlipidemia, unspecified; I48.0 Paroxysmal atrial fibrillation; E11.9 Type 2 diabetes mellitus without complications; F17.210 Nicotine dependence, cigarettes, uncomplicated; Z85.46 Personal history of malignant neoplasm of prostate; Z86.73 Personal history of transient ischemic attack (TIA), and cerebral infarction without residual deficits
CPT/HCPCS: 96372; G0463; J3420

== ENCOUNTER 2023-02-08 11:21 | Emergency (ER) | payer MEDICARE, OTHER ==
[~2023-02-08] VITALS: Ht 167.6 cm; Wt 71.5 kg
[~2023-02-08 11:21] MED LIST changes: -CYANOCOBALAMIN (B-12) 1000 MCG/1 ML VIAL IM ONE; -CYANOCOBALAMIN (B-12) 1000 MCG/1 ML VIAL ONE
[2023-02-08 11:58] LABS: Basophils # (auto) 0.1 10 ^3/uL (0-0.2); Eosinophils # (auto) 0.1 10 ^3/uL (0-0.8); Eosinophils % (auto) 1.3 % (0.0-7.0); Hematocrit 38.4 % (41.0-53.0); Hemoglobin 12.1 g/dL (13.5-17.5); Monocytes # (auto) 0.6 10 ^3/uL (0-1.3)
[2023-02-08 12:00] LABS: Basophils % (auto) 0.9 % (0.0-2.0); Lymphocytes # (auto) 1.1 10 ^3/uL (0.4-5.4); Lymphocytes % (auto) 12.9 % (10.0-50.0); Mean Corpuscular Hemoglobin 24.3 pg (28.0-32.0); Mean Corpuscular Hgb Conc. 31.4 g/dL (32.0-36.0); Mean Corpuscular Volume 77.6 fL (80.0-100.0); Monocytes % (auto) 6.6 % (0.0-12.0); Neutrophils # (auto) 6.8 10 ^3/uL (1.6-8.6); Neutrophils % (auto) 78.3 % (37.0-80.0); Nucleated Red Blood Cells % 0.1 %; Red Blood Cells 4.95 10^6/uL (4.5-5.90); White Blood Cell 8.7 10^3/uL (4.4-10.8)
[2023-02-08 12:29] LABS: Albumin 3.6 g/dL (3.4-5.0); Calcium 8.9 mg/dL (8.5-10.1); Potassium 4.1 mmol/L (3.5-5.1)
[2023-02-08] MEDS ORDERED: predniSONE 20 MG TAB PO ONE (12:30)
[2023-02-08] MEDS ORDERED: ALBUTEROL SULF 2.5 MG/0.5ML(0.5%) NEB SOLN NEB ONE (12:30)
[2023-02-08] MEDS ORDERED: IPRATROPIUM BROM 0.5 MG/2.5ML INH SOL NEB ONE (12:30)
[2023-02-08 12:33] LABS: BUN/Creatinine Ratio 14.2 (10.0-20.0); Bilirubin, Total 0.5 mg/dL (0.2-1.0)
[2023-02-08 16:06] VITALS: BP 136/82; PULSE 92; RESP 15; TEMP 97.8; O2SAT 98
[2023-02-08] MEDS ORDERED: ALBUAER3 IN (16:27)
[2023-02-08] MEDS ORDERED: PRED20TA2 PO (16:27)
== END 2023-02-08 16:36 | disposition home or self-care (01) ==
LOC: ER 11:21
DX: J44.1 Chronic obstructive pulmonary disease with (acute) exacerbation (principal); I10 Essential (primary) hypertension; E78.5 Hyperlipidemia, unspecified; E11.9 Type 2 diabetes mellitus without complications; M54.2 Cervicalgia
CPT/HCPCS: 36415; 70490; 71045; 71250; 80053; 83880; 84484; 85025; 93005; 94640; 99285; J7512; J7644

== ENCOUNTER → 2023-08-13 | Outpatient (CLI) | payer MEDICARE, OTHER ==
[~2023-08-13] MED LIST changes: +ALBUAER3 IN; +PRED20TA2 PO
== END | disposition home or self-care (01) ==
LOC: Rad HDHVI 08:46
PROVIDERS: ATTEND Internal Medicine Cardiovascular Disease
DX: I08.2 Rheumatic disorders of both aortic and tricuspid valves (principal); I11.9 Hypertensive heart disease without heart failure; R06.02 Shortness of breath
CPT/HCPCS: 93306

== ENCOUNTER 2023-08-28 07:58 | Emergency (ER) | payer MEDICARE, OTHER ==
[~2023-08-28] VITALS: Ht 167.6 cm; Wt 73.0 kg
[2023-08-28 09:00] VITALS: BP 161/92; PULSE 73; RESP 18; TEMP 97.5; O2SAT 98
== END 2023-08-28 09:08 | disposition home or self-care (01) ==
LOC: ER 07:58
DX: S29.011A Strain of muscle and tendon of front wall of thorax, initial encounter (principal); I10 Essential (primary) hypertension; E11.9 Type 2 diabetes mellitus without complications; J44.9 Chronic obstructive pulmonary disease, unspecified; E78.5 Hyperlipidemia, unspecified; Z90.49 Acquired absence of other specified parts of digestive tract; Z87.891 Personal history of nicotine dependence; Z79.899 Other long term (current) drug therapy; W01.198A Fall on same level from slipping, tripping and stumbling with subsequent striking against other object, initial encounter; Y93.89 Activity, other specified; Y92.89 Other specified places as the place of occurrence of the external cause; Y99.8 Other external cause status
CPT/HCPCS: 71101

== ENCOUNTER 2024-01-31 10:42 | Inpatient (IN) | payer MEDICARE, OTHER ==
[~2024-01-31] VITALS: Ht 177.8 cm; Wt 75.2 kg
[~2024-01-31 10:42] MED LIST changes: -ATO40T PO; +ATOR-507 PO
[2024-01-31 13:00] VITALS: RESP 20; O2SAT 100
[2024-01-31] MEDS: ONDANSETRON HCL 4 MG/2 ML VIAL IM ONE (17:15)
[2024-01-31 17:51] LABS: Albumin 4.4 g/dL (3.2-4.8); Alkaline Phosphatase 87 U/L (46-116); Anion Gap 15 (5-15); Aspartate Aminotransferase 9 U/L (13-40); BUN/Creatinine Ratio 12.8 (10.0-20.0); Bilirubin, Total 0.8 mg/dL (0.2-1.0); Blood Urea Nitrogen 18 mg/dL (9-23); Calcium 9.7 mg/dL (8.7-10.4); Carbon Dioxide 18 mmol/L (20-30); Chloride 101 mmol/L (98-107); Glucose 150 mg/dL (74-106); Lipase 37 U/L (12-53); Potassium 4.2 mmol/L (3.5-5.1); Sodium 134 mmol/L (136-145)
[2024-01-31 17:52] LABS: Total Protein 7.9 g/dL (5.7-8.2)
[2024-01-31 17:53] LABS: Alanine Aminotransferase < 9 U/L (7-40)
[2024-01-31 18:01] LABS: Basophils # (auto) 0.1 10 ^3/uL (0-0.2); Eosinophils # (auto) 0.1 10 ^3/uL (0-0.8); Eosinophils % (auto) 0.7 % (0.0-7.0); Hematocrit 37.3 % (41.0-53.0); Hemoglobin 10.6 g/dL (13.5-17.5); Lactic Acid w/Reflex 4.3 mmol/L (0.4-2.0); Lymphocytes # (auto) 1.3 10 ^3/uL (0.4-5.4); Lymphocytes % (auto) 12.6 % (10.0-50.0); Mean Corpuscular Hemoglobin 20.1 pg (28.0-32.0); Mean Corpuscular Hgb Conc. 28.5 g/dL (32.0-36.0); Mean Corpuscular Volume 70.7 fL (80.0-100.0); Monocytes # (auto) 0.3 10 ^3/uL (0-1.3); Neutrophils # (auto) 8.2 10 ^3/uL (1.6-8.6); Neutrophils % (auto) 82.7 % (37.0-80.0); Nucleated Red Blood Cells % 0.1 %; Red Blood Cells 5.28 10^6/uL (4.5-5.90)
[2024-01-31 18:04] LABS: Red Cell Distribution Width 25.1 % (11.8-14.3)
[2024-01-31] MEDS: SODIUM CHLORIDE 0.9% 1,000 ML IV ONE (18:45)
[2024-01-31 18:54] LABS: Hypochromia Marked; Platelet Estimate Adequate
[2024-01-31 18:55] LABS: Anisocytosis Moderate
[2024-01-31] MEDS: IPRATROPIUM BROM 0.5 MG/2.5ML INH SOL NEB ONE (19:35)
[2024-01-31] MEDS: ALBUTEROL SULF 2.5 MG/0.5ML(0.5%) NEB SOLN NEB ONE (19:36)
[2024-01-31 20:16] LABS: Urine Bacteria None Seen /hpf (None Seen)
[2024-01-31 20:25] LABS: Urine Blood Negative /uL (Negative); Urine Clarity Clear (Clear); Urine Color Light-Yellow (Yellow); Urine Hyaline Cast FEW /lpf (0 - 2); Urine Mucus FEW (None Seen); Urine Protein, UAD Negative (Negative); Urine Specific Gravity 1.015 (1.001-1.035); Urine Urobilinogen Normal (Negative); Urine WBC <1 /hpf (0 - 3)
[2024-01-31 22:54] LABS: Lactic Acid w/Reflex 3.1 mmol/L (0.4-2.0)
[2024-01-31] MEDS ORDERED: SODIUM CHLORIDE 0.9% 1,000 ML IV ONE (23:15)
[2024-01-31] MEDS ORDERED: hydrALAZINE HCL 20 MG/ML VL IV PRN (23:30)
[2024-01-31] MEDS ORDERED: DEXTROSE (50%) 50ML SYRG IV PRN (23:30)
[2024-01-31] MEDS ORDERED: DOCUSATE SOD 100 MG CAP PO PRN (23:30)
[2024-01-31] MEDS ORDERED: ACETAMINOPHEN 325 MG TAB PO PRN (23:30)
[2024-01-31] MEDS ORDERED: MORPHINE SULFATE INJ 2 MG/ml SYRG IV PRN (23:30)
[2024-01-31] MEDS ORDERED: HYDROcodone-ACET 5/325MG TAB PO PRN (23:30)
[2024-01-31] MEDS ORDERED: NITROGLYCERIN 0.4 MG SL TAB SL PRN (23:30)
[2024-01-31] MEDS ORDERED: ONDANSETRON HCL 4 MG/2 ML VIAL IV PRN (23:30)
[2024-02-01] VITALS (9 sets, daily range): BP systolic 105–113; BP diastolic 50–63; PULSE 60–88; RESP 18–22; TEMP 97.8–98.6; O2SAT 96–100
[2024-02-01] MEDS: SODIUM CHLORIDE 0.9% 1,000 ML IV SCH (00:03)
[2024-02-01 02:49] LABS: Lactic Acid w/Reflex 2.6 mmol/L (0.4-2.0)
[2024-02-01 04:52] LABS: Basophils # (auto) 0.1 10 ^3/uL (0-0.2); Basophils % (auto) 0.6 % (0.0-2.0); Eosinophils # (auto) 0.1 10 ^3/uL (0-0.8); Eosinophils % (auto) 0.4 % (0.0-7.0); Hematocrit 31.5 % (41.0-53.0); Hemoglobin 9.5 g/dL (13.5-17.5); Lymphocytes % (auto) 8.5 % (10.0-50.0); Mean Corpuscular Hemoglobin 20.4 pg (28.0-32.0); Mean Corpuscular Hgb Conc. 30.2 g/dL (32.0-36.0); Mean Corpuscular Volume 67.7 fL (80.0-100.0); Monocytes # (auto) 0.8 10 ^3/uL (0-1.3); Neutrophils # (auto) 9.9 10 ^3/uL (1.6-8.6); Neutrophils % (auto) 83.5 % (37.0-80.0); Nucleated Red Blood Cells % 0.1 %; Red Blood Cells 4.65 10^6/uL (4.5-5.90); Red Cell Distribution Width 23.9 % (11.8-14.3); White Blood Cell 11.9 10^3/uL (4.4-10.8)
[2024-02-01 05:20] LABS: Alkaline Phosphatase 75 U/L (46-116); Anion Gap 12 (5-15); Aspartate Aminotransferase < 8 U/L (13-40); BUN/Creatinine Ratio 16.9 (10.0-20.0); Blood Urea Nitrogen 23 mg/dL (9-23); Calcium 8.9 mg/dL (8.7-10.4); Carbon Dioxide 23 mmol/L (20-30); Chloride 104 mmol/L (98-107); Glucose 117 mg/dL (74-106); Potassium 4.3 mmol/L (3.5-5.1); Sodium 139 mmol/L (136-145)
[2024-02-01 05:21] LABS: Alanine Aminotransferase < 9 U/L (7-40); Total Protein 6.7 g/dL (5.7-8.2)
[2024-02-01] MEDS: InsuLIN REG 1unit/0.01ml Soln (100units/ml) SC SCH (07:00)
[2024-02-01] MEDS: ACCU-CHEK COMFORT CURVE STRIP VI SCH (07:02)
[2024-02-01] MEDS: ALBUTEROL SULF 2.5 MG/0.5ML(0.5%) NEB SOLN NEB PRN (09:07)
[2024-02-01] MEDS: IPRATROPIUM BROM 0.5 MG/2.5ML INH SOL NEB PRN (09:07)
[2024-02-01] MEDS: MULTIPLE VITAMIN TAB PO SCH (10:00)
[2024-02-01] MEDS: PANTOPRAZOLE 40 MG/10 ML VIAL INJ IV SCH (10:00)
[2024-02-01 15:04] LABS: Lactic Acid w/Reflex 3.3 mmol/L (0.4-2.0)
[2024-02-01] MEDS ORDERED: CHOL1TAB30 PO (19:07)
[2024-02-01] MEDS ORDERED: CALC200T2 PO (19:07)
[2024-02-01] MEDS ORDERED: RIVA10TA PO (19:07)
[2024-02-01] MEDS ORDERED: ALEN70TA74 PO (19:07)
[2024-02-01] MEDS ORDERED: CYCL-837 PO (19:07)
[2024-02-01] MEDS: ATORVASTATIN 20 MG TAB PO SCH (21:05)
[2024-02-02] VITALS (7 sets, daily range): BP systolic 89–111; BP diastolic 46–65; PULSE 71–84; RESP 16–21; TEMP 97.6–99; O2SAT 93–100
[2024-02-02 06:44] LABS: Chloride 109 mmol/L (98-107); Sodium 138 mmol/L (136-145)
[2024-02-02 06:45] LABS: Anion Gap 8 (5-15); Carbon Dioxide 21 mmol/L (20-30)
[2024-02-02 06:46] LABS: Calcium 8.4 mg/dL (8.7-10.4)
[2024-02-02 06:48] LABS: Basophils # (auto) 0.1 10 ^3/uL (0-0.2); Basophils % (auto) 1.4 % (0.0-2.0); Hemoglobin 8.3 g/dL (13.5-17.5); Lymphocytes # (auto) 1.1 10 ^3/uL (0.4-5.4); Neutrophils # (auto) 4.6 10 ^3/uL (1.6-8.6); Nucleated Red Blood Cells % 0.1 %
[2024-02-02 06:50] LABS: BUN/Creatinine Ratio 13.1 (10.0-20.0); Blood Urea Nitrogen 17 mg/dL (9-23); Eosinophils # (auto) 0.3 10 ^3/uL (0-0.8); Eosinophils % (auto) 3.6 % (0.0-7.0); Glucose 87 mg/dL (74-106); Mean Corpuscular Hemoglobin 20.9 pg (28.0-32.0); Mean Corpuscular Hgb Conc. 29.8 g/dL (32.0-36.0); Mean Corpuscular Volume 69.9 fL (80.0-100.0); Monocytes # (auto) 0.9 10 ^3/uL (0-1.3); Monocytes % (auto) 12.4 % (0.0-12.0); Neutrophils % (auto) 66.6 % (37.0-80.0); Triglycerides 92 mg/dL (< 150); White Blood Cell 6.9 10^3/uL (4.4-10.8)
[2024-02-02 06:51] LABS: LDL Cholesterol 46 mg/dL (< 100)
[2024-02-02 06:52] LABS: Cholesterol 97 mg/dL (< 200); HDL Cholesterol 34 mg/dL (40-59)
[2024-02-02 07:00] LABS: % Iron Saturation 5.8 % (20-55); Red Cell Distribution Width 24.3 % (11.8-14.3)
[2024-02-02] MEDS: IRON SUCROSE COMPLEX 100 ML IV SCH (12:00)
[2024-02-02] MEDS: cefTRIAXone 1GM/50ML D5W 50 ML IV ONE (17:26)
[2024-02-02] MEDS: AZITHROMYCIN 500MG/ 250ML 250 ML IV ONE (17:30)
[2024-02-02] MEDS ORDERED: RIVAROXABAN 15 MG TAB PO SCH (18:00)
[2024-02-03] VITALS (7 sets, daily range): BP systolic 84–153; BP diastolic 53–97; PULSE 54–91; RESP 16–21; TEMP 97.6–98.2; O2SAT 66–99
[2024-02-03] MEDS: cefTRIAXone 1GM/50ML D5W 50 ML IV SCH (08:33)
[2024-02-03 09:31] LABS: Anion Gap 8 (5-15); Carbon Dioxide 23 mmol/L (20-30); Chloride 108 mmol/L (98-107); Potassium 3.3 mmol/L (3.5-5.1); Sodium 139 mmol/L (136-145)
[2024-02-03 09:37] LABS: BUN/Creatinine Ratio 19.2 (10.0-20.0); Blood Urea Nitrogen 23 mg/dL (9-23); Glucose 91 mg/dL (74-106)
[2024-02-03] MEDS: LACTATED RINGER'S 1,000 ML IV SCH (09:45)
[2024-02-03] MEDS: AZITHROMYCIN 500MG/ 250ML 250 ML IV SCH (09:46)
[2024-02-03 10:23] LABS: Eosinophils # (auto) 0.2 10 ^3/uL (0-0.8); Hemoglobin 8.3 g/dL (13.5-17.5); Lymphocytes # (auto) 0.6 10 ^3/uL (0.4-5.4); Monocytes # (auto) 0.4 10 ^3/uL (0-1.3)
[2024-02-03 10:25] LABS: Basophils # (auto) 0 10 ^3/uL (0-0.2); Basophils % (auto) 0.8 % (0.0-2.0); Eosinophils % (auto) 3.9 % (0.0-7.0); Hematocrit 28.4 % (41.0-53.0); Lymphocytes % (auto) 10.9 % (10.0-50.0); Mean Corpuscular Hemoglobin 20.6 pg (28.0-32.0); Mean Corpuscular Hgb Conc. 29.3 g/dL (32.0-36.0); Mean Corpuscular Volume 70.5 fL (80.0-100.0); Monocytes % (auto) 7.8 % (0.0-12.0); Neutrophils # (auto) 4.4 10 ^3/uL (1.6-8.6); Neutrophils % (auto) 76.6 % (37.0-80.0); Nucleated Red Blood Cells % 0.1 %; Red Blood Cells 4.03 10^6/uL (4.5-5.90); White Blood Cell 5.7 10^3/uL (4.4-10.8)
[2024-02-03 10:49] LABS: Red Cell Distribution Width 25.2 % (11.8-14.3)
[2024-02-03] MEDS ORDERED: IRON SUCROSE COMPLEX 100 ML IV SCH (12:00)
[2024-02-03 12:19] LABS: Platelet Estimate Adequate
[2024-02-03 12:20] LABS: Anisocytosis Moderate; Hypochromia Moderate
[2024-02-03] MEDS: SODIUM FERR GLUC 62.5MG/5ML 110 ML IV SCH (14:07)
[2024-02-03] MEDS: POTASSIUM EFFERVESENT TAB 25 MEQ PO ONE (14:16)
[2024-02-04] VITALS (8 sets, daily range): BP systolic 90–139; BP diastolic 46–73; PULSE 56–93; RESP 16–18; TEMP 97.7–98.4; O2SAT 92–97
[2024-02-04 12:28] LABS: Basophils # (auto) 0 10 ^3/uL (0-0.2); Basophils % (auto) 0.8 % (0.0-2.0); Eosinophils # (auto) 0.3 10 ^3/uL (0-0.8); Eosinophils % (auto) 4.8 % (0.0-7.0); Hematocrit 25.9 % (41.0-53.0); Hemoglobin 7.8 g/dL (13.5-17.5); Lymphocytes # (auto) 0.8 10 ^3/uL (0.4-5.4); Lymphocytes % (auto) 14.5 % (10.0-50.0); Mean Corpuscular Hemoglobin 20.6 pg (28.0-32.0); Mean Corpuscular Hgb Conc. 30.1 g/dL (32.0-36.0); Mean Corpuscular Volume 68.3 fL (80.0-100.0); Monocytes # (auto) 0.5 10 ^3/uL (0-1.3); Monocytes % (auto) 10.2 % (0.0-12.0); Neutrophils # (auto) 3.8 10 ^3/uL (1.6-8.6); Neutrophils % (auto) 69.7 % (37.0-80.0); Nucleated Red Blood Cells % 0.1 %; Red Blood Cells 3.79 10^6/uL (4.5-5.90); Red Cell Distribution Width 24.1 % (11.8-14.3); White Blood Cell 5.4 10^3/uL (4.4-10.8)
[2024-02-04 12:33] LABS: Chloride 108 mmol/L (98-107); Potassium 3.6 mmol/L (3.5-5.1); Sodium 140 mmol/L (136-145)
[2024-02-04 12:34] LABS: Anion Gap 8 (5-15); Calcium 8.3 mg/dL (8.7-10.4); Carbon Dioxide 24 mmol/L (20-30)
[2024-02-04 12:39] LABS: BUN/Creatinine Ratio 15.3 (10.0-20.0); Blood Urea Nitrogen 17 mg/dL (9-23); Glucose 116 mg/dL (74-106)
[2024-02-05 01:00] VITALS: BP 127/56; PULSE 89; RESP 14; TEMP 98.3; O2SAT 99
[2024-02-05 05:00] VITALS: BP 102/75; PULSE 72; RESP 16; TEMP 98.3; O2SAT 92
[2024-02-05] MEDS: PANTOPRAZOLE 40 MG TAB PO SCH (05:29)
[2024-02-05 05:57] LABS: Basophils # (auto) 0.1 10 ^3/uL (0-0.2); Hemoglobin 7.7 g/dL (13.5-17.5); Lymphocytes # (auto) 0.7 10 ^3/uL (0.4-5.4); Monocytes # (auto) 0.6 10 ^3/uL (0-1.3); Neutrophils # (auto) 3.8 10 ^3/uL (1.6-8.6); Nucleated Red Blood Cells % 0.1 %
[2024-02-05 06:00] LABS: Basophils % (auto) 1.2 % (0.0-2.0); Eosinophils # (auto) 0.3 10 ^3/uL (0-0.8); Eosinophils % (auto) 4.9 % (0.0-7.0); Hematocrit 25.5 % (41.0-53.0); Lymphocytes % (auto) 13.6 % (10.0-50.0); Mean Corpuscular Hemoglobin 20.4 pg (28.0-32.0); Mean Corpuscular Hgb Conc. 30.3 g/dL (32.0-36.0); Mean Corpuscular Volume 67.5 fL (80.0-100.0); Monocytes % (auto) 10.9 % (0.0-12.0); Neutrophils % (auto) 69.4 % (37.0-80.0); Red Blood Cells 3.78 10^6/uL (4.5-5.90); White Blood Cell 5.5 10^3/uL (4.4-10.8)
[2024-02-05 06:35] LABS: Red Cell Distribution Width 24.4 % (11.8-14.3)
[2024-02-05 09:00] VITALS: BP 111/61; PULSE 72; RESP 18; TEMP 97.7; O2SAT 97
[2024-02-05] MEDS: levoFLOXacin 250 MG TAB PO SCH (10:43)
[2024-02-05] MEDS ORDERED: FER325T PO (12:51)
[2024-02-05] MEDS ORDERED: LEVO500T91 PO (12:51)
[2024-02-05 13:38] VITALS: TEMP 36.5
== END 2024-02-05 15:00 | disposition home or self-care (01) | DRG 157 ==
LOC: ER 10:42 → TELE 23:31 → TELE-WESTW 02-01 15:52 → WEST WING 02-02 09:03
PROVIDERS: ADMIT Internal Medicine; ATTEND Internal Medicine Cardiovascular Disease
PROC: 05H933Z Insertion of Infusion Device into Right Brachial Vein, Percutaneous Approach (ICD-10-PCS; principal; 2024-02-03)
PROC: B54MZZA Ultrasonography of Right Upper Extremity Veins, Guidance (ICD-10-PCS; 2024-02-03)
DX: M26.601 Right temporomandibular joint disorder, unspecified (principal); J69.0 Pneumonitis due to inhalation of food and vomit; D68.59 Other primary thrombophilia; E87.1 Hypo-osmolality and hyponatremia; E87.20 Acidosis, unspecified; F03.90 Unspecified dementia, unspecified severity, without behavioral disturbance, psychotic disturbance, mood disturbance, and anxiety; E78.5 Hyperlipidemia, unspecified; M81.0 Age-related osteoporosis without current pathological fracture; D50.9 Iron deficiency anemia, unspecified; E11.40 Type 2 diabetes mellitus with diabetic neuropathy, unspecified; E11.22 Type 2 diabetes mellitus with diabetic chronic kidney disease; J44.9 Chronic obstructive pulmonary disease, unspecified; N18.30 Chronic kidney disease, stage 3 unspecified; D72.829 Elevated white blood cell count, unspecified; I12.9 Hypertensive chronic kidney disease with stage 1 through stage 4 chronic kidney disease, or unspecified chronic kidney disease; I25.10 Atherosclerotic heart disease of native coronary artery without angina pectoris; I48.91 Unspecified atrial fibrillation; Z87.891 Personal history of nicotine dependence; Z79.4 Long term (current) use of insulin; Z79.899 Other long term (current) drug therapy
CPT/HCPCS: 36415; 70110; 70490; 71045; 71250; 80048; 80053; 80061; 81001; 82270; 82607; 82962; 83036; 83540; 83550; 83605; 83690; 83880; 84443; 84484; 85025; 94640; 96365; 96374; 97110; 97116; 97163; 97530; G0378; J2405; J2470

== ENCOUNTER 2024-04-02 10:06 | Emergency (ER) | payer MEDICARE, OTHER ==
[~2024-04-02] VITALS: Ht 167.6 cm; Wt 67.0 kg
[~2024-04-02 10:06] MED LIST changes: +ALEN70TA74 PO; +CALC200T2 PO; +CHOL1TAB30 PO; +CYCL-837 PO; -DOCU100T15 PO; +FER325T PO; +LEVO500T91 PO; -PANT40TA2 PO; -PRED20TA2 PO; -RANI300C7 PO
[2024-04-02 10:17] VITALS: BP 109/60; PULSE 97; RESP 18; O2SAT 99
[2024-04-02 10:53] LABS: Basophils # (auto) 0.1 10 ^3/uL (0-0.2); Basophils % (auto) 1.4 % (0.0-2.0); Eosinophils # (auto) 0 10 ^3/uL (0-0.8); Eosinophils % (auto) 0.5 % (0.0-7.0); Hematocrit 40.5 % (41.0-53.0); Hemoglobin 13.5 g/dL (13.5-17.5); Lymphocytes # (auto) 0.6 10 ^3/uL (0.4-5.4); Lymphocytes % (auto) 8.6 % (10.0-50.0); Mean Corpuscular Hemoglobin 27.6 pg (28.0-32.0); Mean Corpuscular Hgb Conc. 33.4 g/dL (32.0-36.0); Mean Corpuscular Volume 82.6 fL (80.0-100.0); Monocytes # (auto) 0.2 10 ^3/uL (0-1.3); Monocytes % (auto) 3.8 % (0.0-12.0); Neutrophils # (auto) 5.6 10 ^3/uL (1.6-8.6); Neutrophils % (auto) 85.7 % (37.0-80.0); Platelet Count (auto) 177 10^3/uL (140-450); White Blood Cell 6.5 10^3/uL (4.4-10.8)
[2024-04-02 10:55] LABS: Red Cell Distribution Width 27.2 % (11.8-14.3)
[2024-04-02 11:04] LABS: Chloride 106 mmol/L (98-107); Potassium 3.3 mmol/L (3.5-5.1); Sodium 140 mmol/L (136-145)
[2024-04-02 11:05] LABS: Anion Gap 11 (5-15); Calcium 9.6 mg/dL (8.7-10.4); Carbon Dioxide 23 mmol/L (20-31)
[2024-04-02 11:10] LABS: BUN/Creatinine Ratio 14.5 (10.0-20.0); Blood Urea Nitrogen 20 mg/dL (9-23); Glucose 187 mg/dL (74-106)
== END 2024-04-02 13:00 | disposition left against medical advice (07) ==
LOC: ER 10:06
DX: R53.1 Weakness (principal); I10 Essential (primary) hypertension; E11.9 Type 2 diabetes mellitus without complications; E78.5 Hyperlipidemia, unspecified; J44.9 Chronic obstructive pulmonary disease, unspecified; Z87.891 Personal history of nicotine dependence
CPT/HCPCS: 36415; 80048; 84484; 85025

== ENCOUNTER → 2024-07-21 | Outpatient (CLI) | payer MEDICARE, OTHER ==
[2024-07-21 10:10] LABS: Basophils # (auto) 0.1 10 ^3/uL (0-0.2); Basophils % (auto) 1.1 % (0.0-2.0); Eosinophils # (auto) 0.2 10 ^3/uL (0-0.8); Eosinophils % (auto) 2.6 % (0.0-7.0); Hematocrit 39.4 % (41.0-53.0); Hemoglobin 12.8 g/dL (13.5-17.5); Lymphocytes # (auto) 0.9 10 ^3/uL (0.4-5.4); Lymphocytes % (auto) 13.6 % (10.0-50.0); Mean Corpuscular Hemoglobin 28.4 pg (28.0-32.0); Mean Corpuscular Hgb Conc. 32.6 g/dL (32.0-36.0); Mean Corpuscular Volume 87.2 fL (80.0-100.0); Monocytes # (auto) 0.6 10 ^3/uL (0-1.3); Monocytes % (auto) 8.3 % (0.0-12.0); Neutrophils # (auto) 5.1 10 ^3/uL (1.6-8.6); Neutrophils % (auto) 74.4 % (37.0-80.0); Platelet Count (auto) 216 10^3/uL (140-450); Red Blood Cells 4.51 10^6/uL (4.5-5.90); White Blood Cell 6.9 10^3/uL (4.4-10.8)
[2024-07-21 10:50] LABS: Albumin 4.3 g/dL (3.2-4.8); Alkaline Phosphatase 104 U/L (46-116); Anion Gap 9 (5-15); Aspartate Aminotransferase 15 U/L (13-40); BUN/Creatinine Ratio 13.1 (10.0-20.0); Blood Urea Nitrogen 16 mg/dL (9-23); Calcium 10.1 mg/dL (8.7-10.4); Carbon Dioxide 26 mmol/L (20-31); Chloride 102 mmol/L (98-107); Cholesterol 126 mg/dL (< 200); LDL Cholesterol 67 mg/dL (< 100); Potassium 4.1 mmol/L (3.5-5.1); Sodium 137 mmol/L (136-145); Triglycerides 84 mg/dL (< 150)
[2024-07-21 10:51] LABS: Bilirubin, Total 0.8 mg/dL (0.2-1.0); HDL Cholesterol 45 mg/dL (40-59); Total Protein 7.2 g/dL (5.7-8.2)
[2024-07-21 10:55] LABS: Alanine Aminotransferase < 9 U/L (7-40); Bilirubin, Direct 0.3 mg/dL (<0.3); Glucose 129 mg/dL (74-106)
[2024-07-21 12:25] LABS: Free T4 (Free Thyroxine) 1.17 ng/dL (0.89-1.76)
[2024-07-22 11:38] LABS: Urine Bacteria None Seen /hpf (None Seen)
[2024-07-22 12:11] LABS: Urine Blood Negative /uL (Negative); Urine Clarity Clear (Clear); Urine Color Light-Yellow (Yellow); Urine Hyaline Cast FEW /lpf (0 - 2); Urine Mucus FEW (None Seen); Urine Protein, UAD Negative (Negative); Urine Squamous Epithelial Cell FEW /hpf (<5); Urine Urobilinogen Normal (Negative); Urine WBC 1 /hpf (0 - 3); Urine pH 5.5 (5.0-9.0)
== END | disposition home or self-care (01) ==
LOC: LAB 09:10
PROVIDERS: ATTEND Orthopaedic Surgery
DX: C61 Malignant neoplasm of prostate (principal); E11.9 Type 2 diabetes mellitus without complications; I10 Essential (primary) hypertension; D51.3 Other dietary vitamin B12 deficiency anemia; D64.9 Anemia, unspecified; E55.9 Vitamin D deficiency, unspecified; R00.2 Palpitations; R53.1 Weakness; R30.0 Dysuria
CPT/HCPCS: 36415; 80053; 80061; 80076; 81001; 82607; 83036; 84403; 84439; 84443; 85025

== ENCOUNTER → 2024-08-10 | Outpatient (CLI) | payer MEDICARE, OTHER ==
--- NOTE | 2024-08-13 08:50 | DVHSR ---
APPROVED REPORT EXAM: Two-dimensional and M-mode echocardiogram with Doppler and color Doppler. DIMENSIONS LVDd4.3 (3.8-5.7cm)LA (2D)3.3 (1.9-4.0cm)Aortic Root2.9 (2.0-3.7cm) LVDs3.4 (2.5-4.0cm)LA (MM) (1.9-4.0cm)Aortic Cusp Exc0.8 (1.5-2.0cm) EF (%) 42.1 (55-70%)Rt. Atrium3.9 (1.9-4.0cm)Asc. Aorta cm IVSd0.8 (0.7-1.1cm)RV (D)2.9 (1.8-2.4cm) PWd0.8 (0.7-1.1cm) Mitral Valve MitralMitral Stenosis E wave0.94m/sMV Mean GR.mmHg A wave0.22m/sMV Peak GR.32mmHg E/A ratio4.32D MVAcm2 DECEL [id number] 1/2 Timems Aortic Valve Aortic ValveAortic Stenosis V10.59m/Stephan Mean GR.mmHg Pulmonic Valve V20.61m/s Tricuspid Valve TR Velocity2.59m/s [id number] LEFT VENTRICLE The Ejection Fraction is 35-45%. ATRIA The left atrial size is normal. The right atrium size is normal. MITRAL VALVE The mitral valve is normal in structure and function. Mitral regurgitation is mild. PULMONIC VALVE The pulmonic valve is not well visualized. TRICUSPID VALVE The tricuspid valve is grossly normal. There is mild tricuspid regurgitation. AORTIC VALVE The aortic valve is moderatelycalcified. No aortic regurgitation is present. There is moderate to severe valvular aortic stenosis. GREAT VESSELS The aortic root is normal size. PERICARDIAL EFFUSION There is no pericardial effusion. Conclusion EF 45-50% SEGMENTAL WALL MOTION ABNL MILD AV CALCIFICATION MILD AV STENOSIS MILD TR MILD MR
== END | disposition home or self-care (01) ==
LOC: Rad HDHVI 10:40
PROVIDERS: ATTEND Internal Medicine Cardiovascular Disease
DX: I08.3 Combined rheumatic disorders of mitral, aortic and tricuspid valves (principal); I10 Essential (primary) hypertension
CPT/HCPCS: 93306

== ENCOUNTER → 2024-09-13 | Outpatient (CLI) | payer MEDICARE, OTHER ==
[~2024-09-13] MED LIST changes: +ALEN10TA22 PO; +CALC-312 PO; +CHOL50007 PO; +FAMO20TA10 PO; +HEPARIN IN NS 1000Units/500mL 1,500 ML ONE; +IOHEXOL 350 MG/ML 100ML IJ ONE
[2024-09-13 11:35] VITALS: BP 114/66; PULSE 77; RESP 16; O2SAT 95
[2024-09-13 12:01] VITALS: BP 116/69; PULSE 81
--- NOTE | 2024-09-13 13:20 | DVH ---
XY CHEST TWO VIEWS ROUTINE CLINICAL HISTORY: PRE OP/pain COMPARISON: None TECHNIQUE: Frontal and lateral view of the chest was obtained FINDINGS: Lines and Tubes: None Lungs: No focal consolidation. Pleura: No effusion. No pneumothorax. Cardiomediastinal contours: Unremarkable Bones: No acute osseous abnormality. IMPRESSION: No acute cardiopulmonary disease. Moderate hiatal hernia.
--- NOTE | 2024-09-14 12:38 | DVHHP ---
ADMIT DATE: 09/13/2024 HISTORY OF PRESENT ILLNESS: The patient is an 83-year-old with history of atrial fibrillation. Sick sinus syndrome. History of hypertension, diabetes. History of tobacco use, some 40+ smoking use, now discontinued smoking some 4 years ago. He has COPD, asthma. History of hypertension, hyperlipidemia, history of diabetes with diabetic neuropathy, vasculopathy, nephropathy. Now on stress test, patient was noted to have inferior wall reversibility. Mild decrease in left ventricular ejection fraction and the patient was having ongoing chest pain as well. Because of the presentation, it is felt that the patient should undergo coronary angiography to define coronary anatomy. Risks and benefits were explained to the patient. He denies any fever, chills, melena, hematochezia, hematemesis or hemoptysis. Denies any history of any recent trauma. No recent travel. No history of CVA. No history of seizure disorder. No movement disorder. Denies any history of cancer. History positive for benign prostatic hypertrophy, however. Denies any history of irritable bowel syndrome or inflammatory bowel disease. No history of any liver disease, but the patient does have nephropathy. Creatinine is elevated at 1.57. PHYSICAL EXAMINATION: VITAL SIGNS: Blood pressure is 128/70, pulse of 60 and irregular, O2 saturation 98% on room air. HEENT: Pupils are reactive. Funduscopic exam shows no AV nicking, no exudates, no papilledema. Sclerae are anicteric. Extraocular muscles are intact. NECK: No cervical adenopathy. No supraclavicular adenopathy. Oral mucosa moist. Posterior pharynx without any exudates. Carotid pulses are 2+ symmetrical, normal upstroke and contour. PULMONARY: Clear to auscultation. CARDIOVASCULAR: Irregularly irregular. PMI is not displaced. ABDOMEN: Soft, nontender, normal bowel sounds. EXTREMITIES: Doppler pulses bilaterally. NEUROLOGIC: The patient is intact. ASSESSMENT AND PLAN: Thus, the patient with a chest pain, shortness of breath, now to undergo left heart catheterization. Further recommendations are after the angiogram. Yogi Borden MD SA/YANELI TID: [id number] RECEIPT: [id number]
== END | disposition home or self-care (01) ==
LOC: Rad HDHVI 11:26
PROVIDERS: ATTEND Internal Medicine Cardiovascular Disease
DX: Z01.818 Encounter for other preprocedural examination (principal); K44.9 Diaphragmatic hernia without obstruction or gangrene
CPT/HCPCS: 71046; 93005; G0463

== ENCOUNTER 2024-09-14 09:42 | Day surgery (SDC) | payer MEDICARE, OTHER ==
[2024-09-13 12:51] LABS: Basophils # (auto) 0.1 10 ^3/uL (0-0.2); Eosinophils # (auto) 0.1 10 ^3/uL (0-0.8); Eosinophils % (auto) 1.1 % (0.0-7.0); Hematocrit 40.2 % (41.0-53.0); Lymphocytes # (auto) 0.8 10 ^3/uL (0.4-5.4); Mean Corpuscular Hemoglobin 27.4 pg (28.0-32.0); Mean Corpuscular Hgb Conc. 32.3 g/dL (32.0-36.0); Mean Corpuscular Volume 84.9 fL (80.0-100.0); Monocytes # (auto) 0.4 10 ^3/uL (0-1.3); Monocytes % (auto) 5.6 % (0.0-12.0); Neutrophils # (auto) 6.5 10 ^3/uL (1.6-8.6); Neutrophils % (auto) 82.3 % (37.0-80.0); Nucleated Red Blood Cells % 0.1 %; Platelet Count (auto) 232 10^3/uL (140-450); Red Blood Cells 4.74 10^6/uL (4.5-5.90); Red Cell Distribution Width 15.7 % (11.8-14.3); White Blood Cell 7.9 10^3/uL (4.4-10.8)
[2024-09-13 13:04] LABS: Chloride 103 mmol/L (98-107); Potassium 3.8 mmol/L (3.5-5.1); Sodium 142 mmol/L (136-145)
[2024-09-13 13:05] LABS: Anion Gap 10 (5-15); Calcium 9.7 mg/dL (8.7-10.4); Carbon Dioxide 29 mmol/L (20-31)
[2024-09-13 13:10] LABS: BUN/Creatinine Ratio 22.4 (10.0-20.0); Blood Urea Nitrogen 34 mg/dL (9-23); Glucose 142 mg/dL (74-106)
[2024-09-13 13:12] LABS: INR 1.03 (0.9-1.15); Partial Thromboplastin Time 25.4 SEC (24.5-34.5); Prothrombin Time 10.9 sec (9.3-11.8)
[~2024-09-14] VITALS: Ht 167.6 cm; Wt 72.6 kg
[2024-09-14] VITALS (7 sets, daily range): BP systolic 106–134; BP diastolic 67–80; PULSE 68–75; RESP 13–20; TEMP 97; O2SAT 95–100
[~2024-09-14 09:42] MED LIST changes: -ALEN70TA74 PO; -CALC200T2 PO; -CHOL1TAB30 PO; -CYCL-837 PO; -HEPARIN IN NS 1000Units/500mL 1,500 ML ONE; -IOHEXOL 350 MG/ML 100ML IJ ONE; -LEVO500T91 PO
[2024-09-14] MEDS ORDERED: fentaNYL CITRATE 100 MCG/2 ML VL ONE (11:13)
[2024-09-14] MEDS ORDERED: MIDAZOLAM HCL 2MG/2ML 2ml VIAL (1mg/ml) ONE (11:13)
[2024-09-14] MEDS ORDERED: ANGIOMAX 250 MG VIAL IV ONE (11:13)
[2024-09-14] MEDS ORDERED: SODIUM CHL 0.9% 0 ML ONE (11:14)
[2024-09-14] MEDS ORDERED: LIDOCAINE 2%HCL (LOCAL ANESTH.) INJ 20ML MDV ONE (11:14)
--- NOTE | 2024-09-14 12:35 | DVHOP ---
DATE OF SURGERY: 09/14/2024 PROCEDURES PERFORMED: Selective left and right coronary angiography, ventriculogram, conscious sedation given by ut and right iliac angiography. DESCRIPTION OF PROCEDURE: The patient was prepped and draped under sterile condition. Then, 1% Xylocaine used to anesthetize the right groin. Using Cook needle, right femoral artery was engaged with Seldinger technique, a 6-Cameroonian sheath in the right femoral artery. Using 6-Cameroonian JL4 catheter and 6-Cameroonian JR4 catheter, selective left and right coronary angiographies were performed and 6-Cameroonian pigtail catheter, ventriculogram was done. Total contrast used was 40 mL Optiray. Total fluoro time was 1 minute. RESULTS: * Left main calcified, no flow restrictive lesion. * Left anterior descending artery, mild intimal irregularity, rapid tapering extensive small vessel disease typical of diabetes, but no flow restrictive lesion. * Circumflex artery nondominant vessel without any flow restrictive lesion. Again, diffuse disease throughout with small vessel disease. * Right coronary artery, similarly, dominant vessel, no flow restrictive lesion; however, mild diffuse disease with extensive small vessel disease. * Ejection fraction is preserved with an estimated EF of 60% with LVEDP of 8 mmHg. Left ventricular systolic pressure 127. No gradient across the aortic valve. Thus, the patient has extensive small vessel disease consistent with diabetes. Epicardial vessels have mild intimal irregularity, but no discrete lesion that requires any intervention. No catheter-based or surgical intervention is warranted. Medical management. Yogi Borden MD SA/MORIAH TID: [id number] RECEIPT: [id number]
--- NOTE | 2024-09-14 12:35 | DVHDS ---
DATE OF DISCHARGE: 09/14/2024 DISCHARGE DIAGNOSES: The patient with diabetes, hypertension, atrial fibrillation, sick sinus syndrome. During angiography, the patient has bundle branch block as well. Therefore, may eventually require permanent pacemaker implantation. HOSPITAL COURSE: Clinically, the patient is stable at this time. Epicardial vessels were patent. Small vessel disease typical of diabetes. Stable at the time of discharge. DISPOSITION: Home. ACTIVITY: As instructed. DIET: Will be 2 gram sodium diet. FOLLOWUP: Follow up with me in 1 week. Yogi Borden MD SA/JAVI TID: [id number] RECEIPT: [id number]
== END 2024-09-14 15:00 | disposition home or self-care (01) ==
LOC: CATH 09:42
PROVIDERS: ATTEND Internal Medicine Cardiovascular Disease
DX: R07.89 Other chest pain (principal); R06.02 Shortness of breath; I48.91 Unspecified atrial fibrillation; I49.5 Sick sinus syndrome; I10 Essential (primary) hypertension; I25.10 Atherosclerotic heart disease of native coronary artery without angina pectoris; I45.4 Nonspecific intraventricular block; E11.51 Type 2 diabetes mellitus with diabetic peripheral angiopathy without gangrene; I73.9 Peripheral vascular disease, unspecified
CPT/HCPCS: 36415; 80048; 85025; 85610; 85730; 93458; C1760; C1894; J1644; J2250; J3010; J7030; Q9967; 99152; A4565

== ENCOUNTER 2025-06-08 18:00 | Inpatient (IN) | payer MEDICARE, OTHER ==
[~2025-06-08] VITALS: Ht 177.8 cm; Wt 73.4 kg
[2025-06-08] MEDS: SODIUM CHLORIDE 0.9% 1,000 ML IV ONE ×2 (18:30→18:59)
[2025-06-08 18:55] LABS: Hematocrit 16.1 % (41.0-53.0); Mean Corpuscular Hemoglobin 14.9 pg (28.0-32.0); Mean Corpuscular Volume 56.3 fL (80.0-100.0); Nucleated Red Blood Cells % 0.2 %
--- NOTE | 2025-06-08 18:59 | ECG ---
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
--- NOTE | 2025-06-08 19:04 | DVH ---
EXAM: XY CHEST XRAY 1 VIEW HISTORY: Chest Pain TECHNIQUE: 1 view of the chest COMPARISON: XY CHEST TWO VIEWS ROUTINE on DOS: 09/13/24 FINDINGS/IMPRESSION: LUNGS: No pleural effusion, consolidation, or pneumothorax. possible peripheral interstitial edema. MEDIASTINUM: Unremarkable. BONES: No acute osseous abnormality. OTHER: None.
[2025-06-08 19:12] LABS: INR 2.01 (0.9-1.15); Partial Thromboplastin Time 32.5 SEC (24.5-34.5); Prothrombin Time 19.9 sec (9.3-11.8)
[2025-06-08 19:22] LABS: Albumin 4.0 g/dL (3.2-4.8); Alkaline Phosphatase 76 U/L (46-116); Anion Gap 20 (5-15); BUN/Creatinine Ratio 38.2 (10.0-20.0); Bilirubin, Total 0.6 mg/dL (0.2-1.0); Calcium 9.1 mg/dL (8.7-10.4); Potassium 4.9 mmol/L (3.5-5.1); Sodium 145 mmol/L (136-145); Total Protein 6.8 g/dL (5.7-8.2)
[2025-06-08] MEDS: IPRATROPIUM BROM 0.5 MG/2.5ML INH SOL NEB ONE (19:23)
[2025-06-08] MEDS: ALBUTEROL SULF 2.5 MG/0.5ML(0.5%) NEB SOLN NEB ONE (19:23)
[2025-06-08 19:26] LABS: Alanine Aminotransferase < 9 U/L (7-40); Blood Urea Nitrogen 63 mg/dL (9-23); Carbon Dioxide 16 mmol/L (20-31); Chloride 109 mmol/L (98-107); Glucose 136 mg/dL (74-106)
[2025-06-08 19:32] LABS: Hemoglobin 4.2 g/dL (13.5-17.5)
--- NOTE | 2025-06-08 19:37 | ED.PDOC ---
History of Present Illness HPI Comments 84-year-old male with past medical history is diabetes, dementia, hypertension, coronary artery disease, COPD, atrial fibrillation (on rivaroxaban), anemia sent in from his assisted for possible syncopal event, altered mental status. History is taken from the medics got the history on scene. Patient was witnessed by facility staff to have an episode were he may have had a brief loss of consciousness. Did not fall or hit his head. Eyes rolled to the back of the head. Did not have any seizure-like activity. When he came to he appeared slightly more confused than his usual. Staff did not notice any facial droop, slurred speech, focal weakness on 1 side of the body. When EMS picked the patient up he had atrial fibrillation in the low 100s on their monitor, noted to be hypotensive to the 70s systolic, was not hypoxic, however, placed on nasal cannula for comfort. Upon arrival to the emergency department the patient denies any discomfort, knows his name, knows that he is in a hospital. Chief Complaint: ALOC Time Seen by MD: 18:04 Primary Care Provider: KADI Allergies: Coded Allergies: NO KNOWN ALLERGIES (Unverified , 01/09/17) Home Meds Active Scripts Ferrous Sulfate (FERROUS SULFATE) 325 Mg Tb, 1 TAB PO BID for 30 Days, #60 TAB 3 Refills Prov:SEBASTIAN APPIAH MD 02/05/24 Albuterol Sulfate (VENTOLIN MDI) 90 Mcg Ih, 90 MCG IN Q4HP PRN, #1 MCG Prov:OLIVIA MCNEAL MD 02/08/23 Reported Medications Calcium (Calcium) 500 Mg Tab, 500 MG PO BID, TAB 09/13/24 Famotidine (PEPCID TABLET) 20 Mg Tb, 2 TAB PO DAILY for GERD, #60 TAB 5 Refills 09/13/24 Cholecalciferol (VITAMIN D3) 5,000 Unit Cap, 5000 UNIT PO DAILY for SUPPLEMENT, CAP 09/13/24 Alendronate Sodium (Alendronate Sodium) 10 Mg Tab, 10 MG PO QWEEKLY for Osteoporosis/ Tuesdays, TAB 09/13/24 Atorvastatin Calcium (Lipitor) 40 Mg Tab, 1 TAB PO QPM, #90 TAB 1 Refill 11/10/18 Atenolol (Atenolol) 50 Mg Tab, 50 MG PO DAILY for HIGH BLOOD PRESSURE, MG 11/10/18 Triamterene & Hydrochlorothiaz (Maxzide) 1 Tab Tab, 1 TAB PO DAILY for HIGH CHOLESTEROL, #30 TAB 5 Refills 01/09/17 Metformin Hydrochloride (Metformin Hcl) 500 Mg Tab, 1 TAB PO HS, #60 TAB 3 Refills 01/09/17 Mode of Arrival: EMS Past Medical History PAST MEDICAL HISTORY: AFIB, COPD, Dementia, DM, High Lipids, HTN Surgical History: Appendectomy Family History Family History: Reviewed,noncontributory to illness, Unknown Social History Smoker: Quit Greater Than 1 Year Alcohol: Denies ETOH Use Drugs: Denies Drug Use Lives In: Home Constitutional: denies: chills, diaphoresis, fatigue, fever, malaise, sweats, weakness, others EENTM: denies: blurred vision, double vision, ear bleeding, ear discharge, ear drainage, ear pain, ear ringing, eye pain, eye redness, hearing loss, mouth pain, mouth swelling, nasal discharge, nose bleeding, nose congestion, nose pain, photophobia, tearing, throat pain, throat swelling, voice changes, others Respiratory: denies: cough, hemoptysis, orthopnea, SOB at rest, shortness of breath, SOB with excertion, stridor, wheezing, others Cardiovascular: reports: syncope; denies: chest pain, dizzy spells, diaphoresis, Dyspnea on exertion, edema, irregular heart beat, left arm pain, lightheadedness, palpitations, PND, others Gastrointestinal: denies: abdomen distended, abdominal pain, blood streaked bowels, constipated, diarrhea, dysphagia, difficulty swallowing, hematemesis, melena, nausea, poor appetite, poor fluid intake, rectal bleeding, rectal pain, vomiting, others Genitourinary: denies: burning, dysuria, flank pain, frequency, hematuria, incontinence, penile discharge, penile sore, pain, testicle pain, testicle swelling, urgency, others Neurological: reports: weakness; denies: dizziness, fainting, headache, left sided numbness, left sided weakness, numbness, paresthesia, pre-existing deficit, right sided numbness, right sided weakness, seizure, speech problems, tingling, tremors, others Musculoskeletal: denies: back pain, gout, joint pain, joint swelling, muscle pain, muscle stiffness, neck pain, others Integumetry: denies: bruises, change in color, change in hair/nails, dryness, laceration, lesions, lumps, rash, wounds, others Allergic/Immunocompromised: reports: Difficulty Healing; denies: Frequent Infections, Hives, Itching, others Hematologic/Lymphatic: denies: anemia, blood clots, easy bleeding, easy bruising, swollen glands, others Endocrine: denies: excessive hunger, excessive sweating, excessive thirst, excessive urination, flushing, intolerance to cold, intolerance to heat, unexplained weight gain, unexplained weight loss, others Psychiatric: denies: anxiety, bipolar disorder, depression, hopeless, panic disorder, schizophrenia, sleepless, suicidal, others Unable to Obtain due to: Dementia All Other Systems: Reviewed and Negative Physical Exam General Appearance: Mild Distress, Normal HEENT: Normal ENT Inspection, Pharynx Normal, TMs Normal Neck: Full Range of Motion, Non-Tender, Normal, Normal Inspection Respiratory: Chest Non-Tender, Crackles, Wheezing Cardiovascular: No JVD, No Murmur, No Gallop, Normal Peripheral Pulses, Regular Rate/Rhythm, Other (Trace bilateral lower extremity pitting edema) Breast Exam: Deferred Gastrointestinal: No Organomegaly, Non Tender, No Pulsatile Mass, Normal Bowel Sounds, Soft Genitalia: Deferred Pelvic: Deferred Rectal: Deferred Extremities: No calf tenderness, Normal capillary refill, Normal inspection, Normal range of motion, Non-tender, No pedal edema Musculoskeletal : Apperance: Normal Neurologic: Alert, chute operator II-XII nml as Tested, No Motor Deficits, Normal Mood, No Sensory Deficits, Other (Slightly confused, however, alert to self, situation; no asymmetry noted on face) Cerebellar Function: Normal Reflexes: Normal Skin: Warm, Other (Slightly jaundiced, pale appearing) Lymphatic: No Adenopathy Was a procedure done? Was a procedure done?: No EKG EKG : Pulse Rate (adult): 111 Cardiac Rhythm: Afib Block: RBBB Hypertrophy: None ST: Normal Comments incomplete RBBB Differential Dx Considerations may include: Hypercapnia vs COPD exacerbation vs symptomatic anemia vs syncope vs UTI vs Pneumonia vs Hyponatremia X-Ray, Labs, Meds, VS Vital Signs Date Time Temp Pulse Resp B/P (MAP) Pulse Ox O2 Delivery O2 Flow Rate FiO2 06/08/25 21:00 96 24 102/57 (72) 100 06/08/25 20:00 101 20 102/57 (72) 06/08/25 19:37 111 06/08/25 19:15 20 92 Nasal Cannula* 3 32 06/08/25 19:00 97.9 20 102/57 (72) 100 97.9 06/08/25 18:44 98.0 96 16 89/45 (60) 100 98.0 06/08/25 18:16 96.9 110 18 72/42 95 96.9 06/08/25 18:03 111 Lab Test 06/08/25 20:03 06/08/25 19:15 06/08/25 18:40 06/08/25 18:35 Range/Units Lactic Acid Level 7.6 *H 8.2 *H 0.4-2.0 mmol/L Troponin I High Sensitivity 56 *H 51 </=54 ng/L Blood Gas Specimen Type Venous Blood Gas Sample Site Vbg - n/a Blood Gas Patient Temperature 37.0 Arterial Blood Date Drawn [id number] Zachery Test N/a Venous Blood pH 7.253 L 7.320-7.430 Venous Blood pCO2 at Patient Temp 33.8 L 38.0-54.0 mmHg Venous Blood pO2 at Patient Temp < 36.5 23.0-48.0 mmHg Venous Blood HCO3 14.6 L 22.0-29.0 mmol/L Venous Blood Base Excess -11.5 L -2.0-3.0 mmol/L Blood Gas Liter Flow 3.00 Blood Gas Modality Nasal cannula FiO2 % 32.0 POC Glucose 116 H 70-106 mg/dl Ammonia 12 11-32 umol/L White Blood Count 6.7 4.4-10.8 10^3/uL Red Blood Count 2.86 L 4.5-5.90 10^6/uL Hemoglobin 4.2 *L 13.5-17.5 g/dL Hematocrit 16.1 L 41.0-53.0 % Mean Corpuscular Volume 56.3 L 80.0-100.0 fL Mean Corpuscular Hemoglobin 14.9 L 28.0-32.0 pg Mean Corpuscular Hemoglobin Concent 26.4 L 32.0-36.0 g/dL Red Cell Distribution Width 23.2 H 11.8-14.3 % Platelet Count 353 140-450 10^3/uL Mean Platelet Volume 9.0 6.9-10.8 fL Neutrophils (%) (Auto) 75.8 37.0-80.0 % Lymphocytes (%) (Auto) 15.6 10.0-50.0 % Monocytes (%) (Auto) 7.5 0.0-12.0 % Eosinophils (%) (Auto) 0.2 0.0-7.0 % Basophils (%) (Auto) 0.9 0.0-2.0 % Neutrophils # (Auto) 5.1 1.6-8.6 10 ^3/uL Lymphocytes # (Auto) 1.0 0.4-5.4 10 ^3/uL Monocytes # (Auto) 0.5 0-1.3 10 ^3/uL Eosinophils # (Auto) 0 0-0.8 10 ^3/uL Basophils # (Auto) 0.1 0-0.2 10 ^3/uL Nucleated Red Blood Cells 0.2 % Prothrombin Time 19.9 H 9.3-11.8 sec Prothrombin Time INR 2.01 H 0.9-1.15 Activated Partial Thromboplast Time 32.5 24.5-34.5 SEC Sodium Level 145 136-145 mmol/L Potassium Level 4.9 3.5-5.1 mmol/L Chloride Level 109 H 98-107 mmol/L Carbon Dioxide Level 16 L 20-31 mmol/L Anion Gap 20 H 5-15 Blood Urea Nitrogen 63 H 9-23 mg/dL Creatinine 1.65 H 0.700-1.30 mg/dL Glomerular Filtration Rate Calc 40 >90 mL/min BUN/Creatinine Ratio 38.2 H 10.0-20.0 Serum Glucose 136 H 74-106 mg/dL Calcium Level 9.1 8.7-10.4 mg/dL Total Bilirubin 0.6 0.2-1.0 mg/dL Aspartate Amino Transferase (AST) 15 13-40 U/L Alanine Aminotransferase (ALT) < 9 7-40 U/L Alkaline Phosphatase 76 46-116 U/L B-Type Natriuretic Peptide 1452.14 0-100 pg/mL Total Protein 6.8 5.7-8.2 g/dL Albumin 4.0 3.2-4.8 g/dL Plasma/Serum Blood Alcohol < 3.0 <10 mg/dL Current Medications Medications (Trade) Dose Ordered Sig/Renée Route Start Time Stop Time Status Last Admin Sodium Chloride 1,000 ml @ 1,000 mls/hr Q1H ONCE IV 06/08/25 18:30 06/08/25 19:29 DC 06/08/25 18:59 Ceftriaxone Sodium 50 ml @ 100 mls/hr ONCE ONCE IV 06/08/25 18:30 06/08/25 18:59 DC 06/08/25 21:47 Dexamethasone Sodium Phosphate (Decadron Injection) 10 mg ONCE ONCE IV 06/08/25 19:00 06/08/25 19:01 DC 06/08/25 21:47 Albuterol (Ventolin Medneb) 5 mg ONCE ONCE NEB 06/08/25 19:00 06/08/25 19:01 DC 06/08/25 19:23 Ipratropium Greig (Atrovent Medneb) 0.5 mg ONCE ONCE NEB 06/08/25 19:00 06/08/25 19:01 DC 06/08/25 19:23 Time of 1ST Reevaluation: 19:31 Reevaluation 1ST: Improved Patient Education/Counseling: Diagnosis, Treatment Family Education/Counseling: No Family Present SEPSIS Sepsis Screen Date sepsis recognized/suspect: Jun 08, 2025 Time Sepsis recognized/suspect: 1846 Recent Procedure: No On Antibiotic Therapy: No Respiratory Rate >20: No Heart Rate >90: Yes Temp<36 C (96.8 F) or >38.3 C: No SBP <90 or MAP <65 mmHG: Yes New Acute Mental Status Change: Yes Is the patient on CPAP, BIPAP,: No Physician Orders Chest Xray 1 View (06/08/25 18:20) Electrocardigram (06/08/25 15:28) Urinalysis (06/08/25 18:20) Head Without Contrast (06/08/25 18:20) Drug Screen (06/08/25 18:24) Straight Cath Patient (06/08/25 18:25) Blood Culture (06/08/25 18:27) Venous Blood Gas (06/08/25 18:59) Vital Signs Date Time Temp Pulse Resp B/P (MAP) Pulse Ox O2 Delivery O2 Flow Rate FiO2 06/08/25 21:00 96 24 102/57 (72) 100 06/08/25 20:00 101 20 102/57 (72) 06/08/25 19:37 111 06/08/25 19:15 20 92 Nasal Cannula* 3 32 06/08/25 19:00 97.9 20 102/57 (72) 100 97.9 06/08/25 18:44 98.0 96 16 89/45 (60) 100 98.0 06/08/25 18:16 96.9 110 18 72/42 95 96.9 06/08/25 18:03 111 Laboratory Tests Test 06/08/25 18:35 06/08/25 18:40 06/08/25 20:03 White Blood Count 6.7 10^3/uL (4.4-10.8) Lactic Acid Level 8.2 mmol/L (0.4-2.0) *H 7.6 mmol/L (0.4-2.0) *H Medications Medications Dose Ordered Sig/Renée Route Start Time Stop Time Status Last Admin Dose Admin Albuterol 5 mg ONCE ONCE NEB 06/08/25 19:00 06/08/25 19:01 DC 06/08/25 19:23 Ceftriaxone Sodium 50 ml @ 100 mls/hr ONCE ONCE IV 06/08/25 18:30 06/08/25 18:59 DC 06/08/25 21:47 Dexamethasone Sodium Phosphate 10 mg ONCE ONCE IV 06/08/25 19:00 06/08/25 19:01 DC 06/08/25 21:47 Ipratropium Greig 0.5 mg ONCE ONCE NEB 06/08/25 19:00 06/08/25 19:01 DC 06/08/25 19:23 Sodium Chloride 1,000 ml @ 1,000 mls/hr Q1H ONCE IV 06/08/25 18:30 06/08/25 19:29 DC 06/08/25 18:59 Departure 1 Departure Time of Disposition: 19:26 (84-year-old male with past medical history is diabetes, dementia, hypertension, coronary artery disease, COPD, atrial fibrillation (on rivaroxaban), anemia sent in from his assisted for possible syncopal event, altered mental status. Patient arrives very pale, almost jaundice appearing, does have a history of anemia, could be consistent with symptomatic anemia. Hemoglobin came back at 4.2, patient will be transfused given likely hypotension in the setting of symptomatic anemia. Given the patient's age and numerous comorbidities with reports of a syncopal event and now altered mental status a CT of the head was performed which is negative for any acute intracranial process. EKG upon arrival shows the patient is in atrial fibrillation, has a known history of such. However, heart rate is not critically elevated, maintained in the low 100s. Patient was also hypotensive, for this reason he was initially given 2 L normal saline IV fluid bolus which is greater than 30 cc/kilogram based off with ideal body weight in case patient has an infectious etiology contributing to his abnormal vital signs. He was also empirically given IV ceftriaxone. Initial lactic acid was elevated, repeat a downtrending. Suspect lactic acidosis more likely due to hypoperfusion from significant anemia and hypotension. Chest x-ray was performed which shows no evidence of focal consolidation to suggest bacterial pneumonia. Urinalysis has been ordered. Arterial blood gas was obtained which does not show any evidence of critical hypercapnia contributing to altered mental status. Ammonia level was also obtained which came back normal, does not seem consistent with hepatic encephalopathy. Patient's INR is elevated, likely due to long-term anticoagulation. Will not reverse anticoagulation at this time as he is not currently having any life-threatening hemorrhage. Metabolic panel does not show any evidence of critical hyponatremia or other critical acute electrolyte a bnormalities. Patient will be admitted for further workup and management.) Impression: Primary Impression: Syncope Additional Impression: Symptomatic anemia Disposition: ADMITTED INPATIENT Admit to: Tele Condition: Fair Critical Care Note Critical Care Time?: Yes (35 min-critical care time only) Critical care comment: Patient with possible COPD exacerbation requiring duo nebulizer treatments, IV steroids, supplemental oxygen as needed to prevent further worsening respiratory acidosis, need for intubation; patient with hypotension, concerning for possible infection requiring aggressive IV fluid hydration and empiric antibiotics. Patient with a critical symptomatic anemia requiring emergent blood transfusion. Stability Stability form required: BROOKE Mitchell MD Jun 08, 2025 19:37
[2025-06-08 19:57] LABS: Lactic Acid w/Reflex 8.2 mmol/L (0.4-2.0)
--- NOTE | 2025-06-08 20:11 | DVH ---
CLINICAL HISTORY: ALOC/Syncope TECHNIQUE: Helical scanning was performed of the head from the skull base to the vertex. Multiplanar reconstructions were performed. This exam was performed according to our departmental dose optimization program. Up-to-date CT equipment and radiation dose reduction techniques are utilized as appropriate. CTDI 54 DLP 7 COMPARISON: CT NECK WITHOUT CONTRAST on DOS: 02/01/24, CT NECK WITHOUT CONTRAST on DOS: 02/08/23 FINDINGS: Evaluation is limited due to image degradation secondary to patient motion. There is no evidence for acute intracranial hemorrhage, acute ischemic changes, mass, mass effect, or extra-axial fluid collection. There is no hydrocephalus or midline shift. There is no effacement of the cerebral sulci and basal subarachnoid cisterns. The bocanegra-white matter differentiation is well maintained. There is moderate brain volume loss and chronic small vessel ischemic change. There has been bilateral cataract extraction. The imaged paranasal sinuses are clear. IMPRESSION: Limited exam with no acute intracranial abnormality seen.
--- NOTE | 2025-06-08 22:56 | DVHHP2 ---
History of Present Illness HPI 84-year-old male with past medical history is diabetes, dementia, hypertension, coronary artery disease, COPD, atrial fibrillation (on rivaroxaban), anemia sent in from his assisted for possible syncopal event, altered mental status. History is taken from the medics got the history on scene. Patient was witnessed by facility staff to have an episode were he may have had a brief loss of consciousness. Did not fall or hit his head. Eyes rolled to the back of the head. Did not have any seizure-like activity. When he came to he appeared slightly more confused than his usual. Staff did not notice any facial droop, slurred speech, focal weakness on 1 side of the body. When EMS picked the p atient up he had atrial fibrillation in the low 100s on their monitor, noted to be hypotensive to the 70s systolic, was not hypoxic, however, placed on nasal cannula for comfort. Upon arrival to the emergency department the patient denies any discomfort, knows his name, knows that he is in a hospital. Home Meds Active Scripts Ferrous Sulfate (FERROUS SULFATE) 325 Mg Tb, 1 TAB PO BID for 30 Days, #60 TAB 3 Refills Prov:SEBASTIAN APPIAH MD 02/05/24 Albuterol Sulfate (VENTOLIN MDI) 90 Mcg Ih, 90 MCG IN Q4HP PRN, #1 MCG Prov:OLIVIA MCNEAL MD 02/08/23 Reported Medications Calcium (Calcium) 500 Mg Tab, 500 MG PO BID, TAB 09/13/24 Famotidine (PEPCID TABLET) 20 Mg Tb, 2 TAB PO DAILY for GERD, #60 TAB 5 Refills 09/13/24 Cholecalciferol (VITAMIN D3) 5,000 Unit Cap, 5000 UNIT PO DAILY for SUPPLEMENT, CAP 09/13/24 Alendronate Sodium (Alendronate Sodium) 10 Mg Tab, 10 MG PO QWEEKLY for Osteopo ros/ Tuesdays, TAB 09/13/24 Atorvastatin Calcium (Lipitor) 40 Mg Tab, 1 TAB PO QPM, #90 TAB 1 Refill 11/10/18 Atenolol (Atenolol) 50 Mg Tab, 50 MG PO DAILY for HIGH BLOOD PRESSURE, MG 11/10/18 Triamterene & Hydrochlorothiaz (Maxzide) 1 Tab Tab, 1 TAB PO DAILY for HIGH CHOLESTEROL, #30 TAB 5 Refills 01/09/17 Metformin Hydrochloride (Metformin Hcl) 500 Mg Tab, 1 TAB PO HS, #60 TAB 3 Refills 01/09/17 Past Medical History Patient Family History: Patient reports no known family medical history. Review of Systems Constitutional: No symptom reported Ears, Nose, & Throat: No symptom reported Eyes: No symptom reported Pulmonary/Respiratory: No symptom reported Cardiovascular: No symptom reported Gastrointestinal: No symptom reported H&P Exam Vital Signs Vital Signs Date Time Temp Pulse Resp B/P (MAP) Pulse Ox O2 Delivery O2 Flow Rate FiO2 06/08/25 19:37 111 06/08/25 19:15 20 92 Nasal Cannula* 3 32 06/08/25 18:44 98.0 89/45 (60) 98.0 SEPSIS Sepsis Screen Date sepsis recognized/suspect: Jun 08, 2025 Time Sepsis recognized/suspect: 1846 Recent Procedure: No On Antibiotic Therapy: No Respiratory Rate >20: No Heart Rate >90: Yes Temp<36 C (96.8 F) or >38.3 C: No SBP <90 or MAP <65 mmHG: Yes New Acute Mental Status Change: Yes Is the patient on CPAP, BIPAP,: No Physician Orders Chest Xray 1 View (06/08/25 18:20) Electrocardigram (06/08/25 15:28) Urinalysis (06/08/25 18:20) Head Without Contrast (06/08/25 18:20) Drug Screen (06/08/25 18:24) Straight Cath Patient (06/08/25 18:25) Blood Culture (06/08/25 18:27) Venous Blood Gas (06/08/25 18:59) Type And Screen (06/08/25 19:37) Admit (06/08/25 22:53) Code Status (06/08/25 22:53) 2 Gm Sodium Diet (06/09/25 Breakfast) 0.9% Ns 1000 Ml (06/08/25 23:00) Hydrocodone-Acet 5/325mg Tab ([place] 32 (06/08/25 23:00) Ondansetron Hcl (Zofran) (06/08/25 23:00) Enoxaparin Sodium (Lovenox) (06/09/25 10:00) Complete Blood Count (06/09/25 04:00) Comprehensive Metabolic Panel (06/09/25 04:00) Condition: Serious (06/08/25 22:53) Acetaminophen Tablet (Tylenol Tablet) (06/08/25 23:00) Vital Signs Date Time Temp Pulse Resp B/P (MAP) Pulse Ox O2 Delivery O2 Flow Rate FiO2 06/08/25 19:37 111 06/08/25 19:15 20 92 Nasal Cannula* 3 32 06/08/25 18:44 98.0 96 16 89/45 (60) 100 98.0 06/08/25 18:16 96.9 110 18 72/42 95 96.9 06/08/25 18:03 111 Laboratory Tests Test 06/08/25 18:35 06/08/25 18:40 06/08/25 20:03 White Blood Count 6.7 10^3/uL (4.4-10.8) Lactic Acid Level 8.2 mmol/L (0.4-2.0) *H 7.6 mmol/L (0.4-2.0) *H Medications Medications Dose Ordered Sig/Renée Route Start Time Stop Time Status Last Admin Dose Admin Albuterol 5 mg ONCE ONCE NEB 06/08/25 19:00 06/08/25 19:01 DC 06/08/25 19:23 5 MG Ceftriaxone Sodium 50 ml @ 100 mls/hr ONCE ONCE IV 06/08/25 18:30 06/08/25 18:59 DC 06/08/25 21:47 100 MLS/HR Dexamethasone Sodium Phosphate 10 mg ONCE ONCE IV 06/08/25 19:00 06/08/25 19:01 DC 06/08/25 21:47 10 MG Ipratropium [place] 0.5 mg ONCE ONCE NEB 06/08/25 19:00 06/08/25 19:01 DC 06/08/25 19:23 0.5 MG Sodium Chloride 1,000 ml @ 1,000 mls/hr Q1H ONCE IV 06/08/25 18:30 06/08/25 19:29 DC 06/08/25 18:59 1,000 MLS/HR Labs/Xrays Labs Test 06/08/25 20:03 06/08/25 19:15 06/08/25 18:40 06/08/25 18:35 Range/Units Lactic Acid Level 7.6 *H 0.4-2.0 mmol/L Troponin I High Sensitivity 56 *H </=54 ng/L Blood Gas Specimen Type Venous Blood Gas Sample Site [facility] - n/a Blood Gas Patient Temperature 37.0 Arterial Blood Date Drawn [id number] Zachery Test N/a Venous Blood pH 7.253 L 7.320-7.430 Venous Blood pCO2 at Patient Temp 33.8 L 38.0-54.0 mmHg Venous Blood pO2 at Patient Temp < 36.5 23.0-48.0 mmHg Venous Blood HCO3 14.6 L 22.0-29.0 mmol/L Venous Blood Base Excess -11.5 L -2.0-3.0 mmol/L Blood Gas Liter Flow 3.00 Blood Gas Modality Nasal cannula FiO2 % 32.0 POC Glucose 116 H 70-106 mg/dl Ammonia 12 11-32 umol/L White Blood Count 6.7 4.4-10.8 10^3/uL Red Blood Count 2.86 L 4.5-5.90 10^6/uL Hemoglobin 4.2 *L 13.5-17.5 g/dL Hematocrit 16.1 L 41.0-53.0 % Mean Corpuscular Volume 56.3 L 80.0-100.0 fL Mean Corpuscular Hemoglobin 14.9 L 28.0-32.0 pg Mean Corpuscular Hemoglobin Concent 26.4 L 32.0-36.0 g/dL Red Cell Distribution Width 23.2 H 11.8-14.3 % Platelet Count 353 140-450 10^3/uL Mean Platelet Volume 9.0 6.9-10.8 fL Neutrophils (%) (Auto) 75.8 37.0-80.0 % Lymphocytes (%) (Auto) 15.6 10.0-50.0 % Monocytes (%) (Auto) 7.5 0.0-12.0 % Eosinophils (%) (Auto) 0.2 0.0-7.0 % Basophils (%) (Auto) 0.9 0.0-2.0 % Neutrophils # (Auto) 5.1 1.6-8.6 10 ^3/uL Lymphocytes # (Auto) 1.0 0.4-5.4 10 ^3/uL Monocytes # (Auto) 0.5 0-1.3 10 ^3/uL Eosinophils # (Auto) 0 0-0.8 10 ^3/uL Basophils # (Auto) 0.1 0-0.2 10 ^3/uL Nucleated Red Blood Cells 0.2 % Prothrombin Time 19.9 H 9.3-11.8 sec Prothrombin Time INR 2.01 H 0.9-1.15 Activated Partial Thromboplast Time 32.5 24.5-34.5 SEC Sodium Level 145 136-145 mmol/L Potassium Level 4.9 3.5-5.1 mmol/L Chloride Level 109 H 98-107 mmol/L Carbon Dioxide Level 16 L 20-31 mmol/L Anion Gap 20 H 5-15 Blood Urea Nitrogen 63 H 9-23 mg/dL Creatinine 1.65 H 0.700-1.30 mg/dL Glomerular Filtration Rate Calc 40 >90 mL/min BUN/Creatinine Ratio 38.2 H 10.0-20.0 Serum Glucose 136 H 74-106 mg/dL Calcium Level 9.1 8.7-10.4 mg/dL Total Bilirubin 0.6 0.2-1.0 mg/dL Aspartate Amino Transferase (AST) 15 13-40 U/L Alanine Aminotransferase (ALT) < 9 7-40 U/L Alkaline Phosphatase 76 46-116 U/L B-Type Natriuretic Peptide 1452.14 0-100 pg/mL Total Protein 6.8 5.7-8.2 g/dL Albumin 4.0 3.2-4.8 g/dL Plasma/Serum Blood Alcohol < 3.0 <10 mg/dL Assessment/Plan Primary Diagnosis 84-year-old male with past medical history is diabetes, dementia, hypertension, coronary artery disease, COPD, atrial fibrillation (on rivaroxaban), anemia sent in from his assisted for possible syncopal event, altered mental status. History is taken from the medics got the history on scene. Patient was witnessed by facility staff to have an episode were he may have had a brief loss of consciousness. Did not fall or hit his head. Eyes rolled to the back of the head. Did not have any seizure-like activity. When he came to he appeared slightly more confused than his usual. Staff did not notice any facial droop, slurred speech, focal weakness on 1 side of the body. When EMS picked the patient up he had atrial fibrillation in the low 100s on their monitor, noted to be hypotensive to the 70s systolic, was not hypoxic, however, placed on nasal cannula for comfort. Upon arrival to the emergency department the patient denies any discomfort, knows his name, knows that he is in a hospital. syncope DM type II HTN CAD COPD hx A-fib anemia admitted to med sug consult to cardiology Plan discussed with: Patient MARTINEZROB Wilde David DRAKE Jun 08, 2025 22:56
[2025-06-08] MEDS ORDERED: MORPHINE SULFATE INJ 2 MG/ml SYRG IV PRN (23:00)
[2025-06-08] MEDS ORDERED: ONDANSETRON HCL 4 MG/2 ML VIAL IV PRN (23:00)
[2025-06-08] MEDS ORDERED: ACETAMINOPHEN 325 MG TAB PO PRN (23:00)
[2025-06-08] MEDS ORDERED: HYDROcodone-ACET 5/325MG TAB PO PRN (23:00)
[2025-06-08] MEDS: SODIUM CHLORIDE 0.9% 1,000 ML IV SCH (23:10)
[2025-06-09] VITALS (18 sets, daily range): BP systolic 80–131; BP diastolic 49–77; PULSE 61–100; RESP 15–22; TEMP 96.3–99.1; O2SAT 94–100
--- NOTE | 2025-06-09 01:27 | DVHINCON2 ---
Date of service: Jun 08, 2025 Referring Physician Christina Reason for Consultation Elevated troponin History of Present Illness This is a 84-year-old male with a past medical history of diabetes, dementia, hypertension, coronary artery disease, COPD, atrial fibrillation (on rivaroxaban), anemia who was brought in by EMS from his long-term for possible syncopal event and altered mental status. Patient was witnessed by facility staff to have an episode were he may have had a brief loss of consciousness. Did not fall or hit his head. Eyes rolled to the back of the head. Did not have any seizure-like activity. When he came to he appeared slightly more confused than his usual. Staff did not notice any facial droop, slurred speech, focal weakness on 1 side of the body. When EMS picked the patient up he had atrial fibrillation in the low 100s on their monitor, noted to be hypotensive to the 70s systolic. EKG shows A Fib at 111. HGB 4.2, HCT 16.1, CO2 16, BUN 20, [employer] 1.65, LA 8.2 > 7. Patient ordered to receive PRBC transfusion. Patient was admitted to the hospital. I am asked to consult on this patient. Family History: Patient reports no known family medical history. Allergies: Coded Allergies: NO KNOWN ALLERGIES (Unverified , 01/09/17) Home Meds Active Scripts Ferrous Sulfate (FERROUS SULFATE) 325 Mg Tb, 1 TAB PO BID for 30 Days, #60 TAB 3 Refills Prov:SEBASTIAN APPIAH MD 02/05/24 Albuterol Sulfate (VENTOLIN MDI) 90 Mcg Ih, 90 MCG IN Q4HP PRN, #1 MCG Prov:OLIVIA MCNEAL MD 02/08/23 Reported Medications Calcium (Calcium) 500 Mg Tab, 500 MG PO BID, TAB 09/13/24 Famotidine (PEPCID TABLET) 20 Mg Tb, 2 TAB PO DAILY for GERD, #60 TAB 5 Refills 09/13/24 Cholecalciferol (VITAMIN D3) 5,000 Unit Cap, 5000 UNIT PO DAILY for SUPPLEMENT, CAP 09/13/24 Alendronate Sodium (Alendronate Sodium) 10 Mg Tab, 10 MG PO QWEEKLY for Osteoporosis/ Tuesdays, TAB 09/13/24 Atorvastatin Calcium (Lipitor) 40 Mg Tab, 1 TAB PO QPM, #90 TAB 1 Refill 11/10/18 Atenolol (Atenolol) 50 Mg Tab, 50 MG PO DAILY for HIGH BLOOD PRESSURE, MG 11/10/18 Triamterene & Hydrochlorothiaz (Maxzide) 1 Tab Tab, 1 TAB PO DAILY for HIGH CHOLESTEROL, #30 TAB 5 Refills 01/09/17 Metformin Hydrochloride (Metformin Hcl) 500 Mg Tab, 1 TAB PO HS, #60 TAB 3 Refills 01/09/17 Current Medications Current Medications Medications (Trade) Dose Ordered Sig/Renée Route PRN Reason Start Time Stop Time Status Last Admin Sodium Chloride 1,000 ml @ 60 mls/hr [id number] IV 06/08/25 23:00 06/08/25 23:10 Acetaminophen/ Hydrocodone Bitart ([place] 5/325MG Tab) 1 tab Q4HP PRN PO MODERATE PAIN (4-6 PAIN SCALE) 06/08/25 23:00 Ondansetron HCl (Zofran) 4 mg Q4HP PRN IV NAUSEA / VOMITING 06/08/25 23:00 Enoxaparin Sodium (Lovenox) 40 mg DAILY SC 06/09/25 10:00 Acetaminophen (Tylenol Tablet) 650 mg Q6HP PRN PO PAIN SCALE 1-3 OR TEMP>100.4 06/08/25 23:00 Morphine Sulfate 2 mg Q4HPRN PRN IV SEVERE PAIN (7-10 PAIN SCALE) 06/08/25 23:00 Review of Systems Constitutional: denies: chills, diaphoresis, fatigue, fever, malaise, sweats, weakness, others EENTM: denies: blurred vision, double vision, ear bleeding, ear discharge, ear drainage, ear pain, ear ringing, eye pain, eye redness, hearing loss, mouth pain, mouth swelling, nasal discharge, nose bleeding, nose congestion, nose pain, photophobia, tearing, throat pain, throat swelling, voice changes, others Respiratory: denies: cough, hemoptysis, orthopnea, SOB at rest, shortness of breath, SOB with excertion, stridor, wheezing, others Cardiovascular: reports: syncope; denies: chest pain, dizzy spells, diaphoresis, Dyspnea on exertion, edema, irregular heart beat, left arm pain, lightheadedness, palpitations, PND, others Gastrointestinal: denies: abdomen distended, abdominal pain, blood streaked bowels, constipated, diarrhea, dysphagia, difficulty swallowing, hematemesis, melena, nausea, poor appetite, poor fluid intake, rectal bleeding, rectal pain, vomiting, others Genitourinary: denies: burning, dysuria, flank pain, frequency, hematuria, incontinence, penile discharge, penile sore, pain, testicle pain, testicle swelling, urgency, others Neurological: reports: weakness; denies: dizziness, fainting, headache, left sided numbness, left sided weakness, numbness, paresthesia, pre-existing deficit, right sided numbness, right sided weakness, seizure, speech problems, tingling, tremors, others Musculoskeletal: denies: back pain, gout, joint pain, joint swelling, muscle pain, muscle stiffness, neck pain, others Integumetry: denies: bruises, change in color, change in hair/nails, dryness, laceration, lesions, lumps, rash, wounds, others Allergic/Immunocompromised: reports: Difficulty Healing; denies: Frequent Infections, Hives, Itching, others Hematologic/Lymphatic: denies: anemia, blood clots, easy bleeding, easy bruising, swollen glands, others Endocrine: denies: excessive hunger, excessive sweating, excessive thirst, excessive urination, flushing, intolerance to cold, intolerance to heat, unexpla ined weight gain, unexplained weight loss, others Psychiatric: denies: anxiety, bipolar disorder, depression, hopeless, panic disorder, schizophrenia, sleepless, suicidal, others Unable to Obtain due to: Dementia All Other Systems: Reviewed and Negative Vital Signs Vital Signs Date Time Temp Pulse Resp B/P (MAP) Pulse Ox O2 Delivery O2 Flow Rate FiO2 06/09/25 00:15 97.3 98 16 96/53 97.3 06/08/25 21:00 100 06/08/25 19:15 Nasal Cannula* 3 32 Labs/Diagnostic Data Labs Test 06/08/25 20:03 06/08/25 19:15 06/08/25 18:40 06/08/25 18:35 Range/Units Lactic Acid Level 7.6 *H 0.4-2.0 mmol/L Troponin I High Sensitivity 56 *H </=54 ng/L Blood Gas Specimen Type Venous Blood Gas Sample Site [facility] - n/a Blood Gas Patient Temperature 37.0 Arterial Blood Date Drawn [id number] Zachery Test N/a Venous Blood pH 7.253 L 7.320-7.430 Venous Blood pCO2 at Patient Temp 33.8 L 38.0-54.0 mmHg Venous Blood pO2 at Patient Temp < 36.5 23.0-48.0 mmHg Venous Blood HCO3 14.6 L 22.0-29.0 mmol/L Venous Blood Base Excess -11.5 L -2.0-3.0 mmol/L Blood Gas Liter Flow 3.00 Blood Gas Modality Nasal cannula FiO2 % 32.0 POC Glucose 116 H 70-106 mg/dl Ammonia 12 11-32 umol/L White Blood Count 6.7 4.4-10.8 10^3/uL Red Blood Count 2.86 L 4.5-5.90 10^6/uL Hemoglobin 4.2 *L 13.5-17.5 g/dL Hematocrit 16.1 L 41.0-53.0 % Mean Corpuscular Volume 56.3 L 80.0-100.0 fL Mean Corpuscular Hemoglobin 14.9 L 28.0-32.0 pg Mean Corpuscular Hemoglobin Concent 26.4 L 32.0-36.0 g/dL Red Cell Distribution Width 23.2 H 11.8-14.3 % Platelet Count 353 140-450 10^3/uL Mean Platelet Volume 9.0 6.9-10.8 fL Neutrophils (%) (Auto) 75.8 37.0-80.0 % Lymphocytes (%) (Auto) 15.6 10.0-50.0 % Monocytes (%) (Auto) 7.5 0.0-12.0 % Eosinophils (%) (Auto) 0.2 0.0-7.0 % Basophils (%) (Auto) 0.9 0.0-2.0 % Neutrophils # (Auto) 5.1 1.6-8.6 10 ^3/uL Lymphocytes # (Auto) 1.0 0.4-5.4 10 ^3/uL Monocytes # (Auto) 0.5 0-1.3 10 ^3/uL Eosinophils # (Auto) 0 0-0.8 10 ^3/uL Basophils # (Auto) 0.1 0-0.2 10 ^3/uL Nucleated Red Blood Cells 0.2 % Prothrombin Time 19.9 H 9.3-11.8 sec Prothrombin Time INR 2.01 H 0.9-1.15 Activated Partial Thromboplast Time 32.5 24.5-34.5 SEC Sodium Level 145 136-145 mmol/L Potassium Level 4.9 3.5-5.1 mmol/L Chloride Level 109 H 98-107 mmol/L Carbon Dioxide Level 16 L 20-31 mmol/L Anion Gap 20 H 5-15 Blood Urea Nitrogen 63 H 9-23 mg/dL Creatinine 1.65 H 0.700-1.30 mg/dL Glomerular Filtration Rate Calc 40 >90 mL/min BUN/Creatinine Ratio 38.2 H 10.0-20.0 Serum Glucose 136 H 74-106 mg/dL Calcium Level 9.1 8.7-10.4 mg/dL Total Bilirubin 0.6 0.2-1.0 mg/dL Aspartate Amino Transferase (AST) 15 13-40 U/L Alanine Aminotransferase (ALT) < 9 7-40 U/L Alkaline Phosphatase 76 46-116 U/L B-Type Natriuretic Peptide 1452.14 0-100 pg/mL Total Protein 6.8 5.7-8.2 g/dL Albumin 4.0 3.2-4.8 g/dL Plasma/Serum Blood Alcohol < 3.0 <10 mg/dL Assessment Syncope. Elevated troponin. DM type II. HTN. CAD. COPD A-fib. Anemia. Demntia. Plan/Recommendation I agree with your ongoing assessment and care of plan. Morphine and [place] for pain management. DVT prophylactics. IVFs. Additional plan as per the hospital course. A total of 45 minutes was spent reviewing the patient record, examining the patient, making a diagnostic and therapeutic plan, discussing this plan with medical personnel, following up on diagnostic studies and following the patient for clinical stability excluding any and all procedures. At least 50% of this time was spent in direct, efro-[id number] contact. Plan discussed with: Patient ORTIZ,CRESENCIO Wilde MD Jun 09, 2025 01:27
[2025-06-09 03:28] LABS: Hematocrit 21.5 % (41.0-53.0); Mean Corpuscular Hemoglobin 16.4 pg (28.0-32.0); Mean Corpuscular Volume 62.2 fL (80.0-100.0); Nucleated Red Blood Cells % 0.2 %
[2025-06-09 03:34] LABS: Alkaline Phosphatase 72 U/L (46-116); Anion Gap 20 (5-15); BUN/Creatinine Ratio 34.4 (10.0-20.0); Calcium 8.8 mg/dL (8.7-10.4); Potassium 4.9 mmol/L (3.5-5.1); Sodium 144 mmol/L (136-145); Total Protein 6.9 g/dL (5.7-8.2)
[2025-06-09 03:35] LABS: Albumin 3.9 g/dL (3.2-4.8); Bilirubin, Total 1.0 mg/dL (0.2-1.0); Hemoglobin 5.7 g/dL (13.5-17.5)
[2025-06-09 03:47] LABS: Alanine Aminotransferase < 9 U/L (7-40); Blood Urea Nitrogen 56 mg/dL (9-23); Carbon Dioxide 15 mmol/L (20-31); Chloride 109 mmol/L (98-107); Glucose 129 mg/dL (74-106)
[2025-06-09] MEDS: SODIUM CHLORIDE 0.9% 1,000 ML IV ONE ×2 (05:21→19:02)
[2025-06-09 09:47] LABS: Urine Protein, UAD Negative (Negative)
[2025-06-09] MEDS ORDERED: ENOXAPARIN SOD 40 MG/0.4 ML SYRINGE SC SCH (10:00)
[2025-06-09 10:22] LABS: Amphetamine Screen, Urine Neg (NEGATIVE); Barbiturate Scree,Urine Neg (NEGATIVE); Benzodiazephine Screen, Urine Neg (NEGATIVE); Cannabinoid Screen, Urine Neg (NEGATIVE); Cocaine Screen, Urine Neg (NEGATIVE); Opiate Scree,Urine Neg (NEGATIVE); Phencyclidine Screen, Urine Neg (NEGATIVE)
[2025-06-09 10:53] LABS: Hematocrit 25.2 % (41.0-53.0); Hemoglobin 7.1 g/dL (13.5-17.5); Mean Corpuscular Hemoglobin 18.3 pg (28.0-32.0); Mean Corpuscular Volume 64.6 fL (80.0-100.0); Nucleated Red Blood Cells % 0.6 %
[2025-06-09 11:07] LABS: Anisocytosis Slight
[2025-06-09] MEDS ORDERED: VANCOMYCIN PER PHARMACY 0 MG IV SCH (17:30)
[2025-06-09] MEDS ORDERED: DEXTROSE (50%) 50ML SYRG IV PRN (17:45)
--- NOTE | 2025-06-09 17:49 | DVHPN2 ---
Progress Note Date Seen: Jun 09, 2025 Medical Necessity Reason Pt with a Central, PICC or Fol: No Objective vital signs Vital Sign Date Time Temp Pulse Resp B/P (MAP) Pulse Ox O2 Delivery O2 Flow Rate FiO2 06/09/25 16:55 97.8 77 18 93/64 (74) 94 97.8 06/09/25 13:30 Nasal Cannula* 2 28 Total Intake and Output 06/08/25 06/08/25 06/09/25 15:00 23:00 07:00 Intake Total 50 ml 3100 ml Output Total 0 ml Balance 50 ml 3100 ml medications Current Medications Medications Dose Ordered Sig/Renée Route Start Time Stop Time Status Last Admin Dose Admin Sodium Chloride 1,000 ml @ 60 mls/hr [id number] IV 06/08/25 23:00 06/08/25 23:10 60 MLS/HR Ondansetron HCl 4 mg Q4HP PRN IV 06/08/25 23:00 Morphine Sulfate 2 mg Q4HPRN PRN IV 06/08/25 23:00 Vancomycin HCl 0 ml @ 0 mls/hr PER PHARMACY IV 06/09/25 17:30 UNV Meropenem 50 ml @ 17 mls/hr Q12HR IV 06/09/25 22:00 Doxycycline Hyclate 100 ml @ 50 mls/hr Q12H IV 06/09/25 17:30 Albuterol 2.5 mg Q6HR NEB 06/09/25 18:00 Ipratropium [place] 0.5 mg Q6HR NEB 06/09/25 18:00 Acetylcysteine 200 mg Q6HR NEB 06/09/25 18:00 Diagnostic Test (Pha) 1 strip Q6HR 06/09/25 18:00 Insulin Human Regular Q6HR SC 06/09/25 18:00 Dextrose 50 ml UD PRN IV 06/09/25 17:45 laboratory and microbiology Laboratory Tests 06/09/25 10:28 06/09/25 02:27 Test 06/09/25 02:27 Range/Units Serum Glucose 129 H 74-106 mg/dL Microbiology Date/Time Source Procedure Growth Status 06/08/25 19:00 Blood Blood Culture - Preliminary Resulted Labs and/or images reviewed: Labs reviewed by me, Image(s) reviewed by me Problem List/Assessment/Plan Problem List/Assessment/Plan 84-year-old male with past medical history is diabetes, dementia, hypertension, coronary artery disease, COPD, atrial fibrillation (on rivaroxaban), [facility] event, altered mental status. History is taken from the medics got the history on scene. Patient was witnessed by facility staff to have an episode were he may have had a brief loss of consciousness. Did not fall or hit his head. Eyes rolled to the back of the head. Did not have any seizure-like activity. When he came to he appeared slightly more confused than his usual. Staff did not notice any facial droop, slurred speech, focal weakness on 1 side of the body. When EMS picked the patient up he had atrial fibrillation in the low 100s on their monitor, noted to be hypotensive to the 70s systolic, was not hypoxic, however, placed on nasal cannula for comfort. Upon arrival to the emergency department the patient denies any discomfort, knows his name, knows that he is in a hospital. syncope DM type II HTN CAD COPD hx A-fib anemia admitted to med sug consult to cardiology Plan discussed with: Patient My Orders My Orders Orders - ROB MARTINEZ DO Procedure Category Date Status Time Admit ADMIT 06/08/25 Transmitted 22:53 Code Status CODE 06/08/25 Transmitted 22:53 2 Gm Sodium Diet DIET 06/09/25 Transmitted Breakfast Sodium Chloride 0.9% PHA 06/08/25 In Process 23:00 Ondansetron Hcl PHA 06/08/25 In Process (Zofran) 23:00 Condition: Serious THEO 06/08/25 In Process 22:53 Morphine Sulfate PHA 06/08/25 In Process Injection 23:00 Transfuse Blood ORDERS 06/08/25 Transmitted Product 22:57 * Cardiology Consult CONS 06/08/25 Transmitted 22:58 CC Plasma Assessment Blood Product Administration S: 0400 ROB MARTINEZ DO Jun 09, 2025 17:49
[2025-06-09] MEDS: InsuLIN REG 1unit/0.01ml Soln (100units/ml) SC SCH (18:00)
[2025-06-09] MEDS: SODIUM CHLORIDE 0.9% 500 ML IV ONE (18:10)
[2025-06-09 18:16] LABS: Potassium 4.7 mmol/L (3.5-5.1); Sodium 144 mmol/L (136-145)
[2025-06-09 18:17] LABS: Anion Gap 13 (5-15); Carbon Dioxide 20 mmol/L (20-31)
[2025-06-09 18:21] LABS: Hematocrit 22.1 % (41.0-53.0)
[2025-06-09 18:22] LABS: BUN/Creatinine Ratio 40.0 (10.0-20.0)
[2025-06-09 18:23] LABS: Magnesium 2.5 mg/dL (1.6-2.6)
[2025-06-09 18:25] LABS: Blood Urea Nitrogen 58 mg/dL (9-23); Calcium 8.2 mg/dL (8.7-10.4); Chloride 111 mmol/L (98-107); Glucose 135 mg/dL (74-106); Hemoglobin 6.4 g/dL (13.5-17.5)
[2025-06-09 18:33] LABS: Total Iron Binding Capacity 363.0 ug/dL (250-425)
[2025-06-09] MEDS: ACCU-CHEK COMFORT CURVE STRIP VI SCH (18:44)
[2025-06-09 18:49] LABS: Iron 15.0 ug/dL (65-175)
[2025-06-09] MEDS ORDERED: ONDANSETRON HCL 4 MG/2 ML VIAL IV PRN (19:00)
[2025-06-09] MEDS: DOXYCYCLINE 100MG/100ML 100 ML IV SCH (19:01)
[2025-06-09] MEDS: MEROPENEM 1GM IVPB 50 ML IV ONE (19:02)
[2025-06-09] MEDS: PANTOPRAZOLE 40 MG/10 ML VIAL INJ IV ONE (19:03)
--- NOTE | 2025-06-09 19:21 | DVHPNRES ---
Progress Note Date Seen: Jun 09, 2025 Resident Creating Document: NADIYA MCPHERSON RESIDENT Medical Necessity Reason Pt with a Central, PICC or Fol: Yes The following are medically ne: Oconnor Catheter Subjective Review of Systems Patient seen and examined with the bedside Confused and not able to answer any questions Objective vital signs Vital Sign Date Time Temp Pulse Resp B/P (MAP) Pulse Ox O2 Delivery O2 Flow Rate FiO2 06/09/25 16:55 97.8 77 18 93/64 (74) 94 97.8 06/09/25 15:53 Nasal Cannula* 2 28 Total Intake and Output 06/08/25 06/08/25 06/09/25 15:00 23:00 07:00 Intake Total 50 ml 3100 ml Output Total 0 ml Balance 50 ml 3100 ml medications Current Medications Medications Dose Ordered Sig/Renée Route Start Time Stop Time Status Last Admin Dose Admin Sodium Chloride 1,000 ml @ 60 mls/hr [id number] IV 06/08/25 23:00 06/08/25 23:10 60 MLS/HR Ondansetron HCl 4 mg Q4HP PRN IV 06/08/25 23:00 Morphine Sulfate 2 mg Q4HPRN PRN IV 06/08/25 23:00 Vancomycin HCl 0 ml @ 0 mls/hr PER PHARMACY IV 06/09/25 17:30 Meropenem 50 ml @ 17 mls/hr Q12HR IV 06/10/25 10:00 Doxycycline Hyclate 100 ml @ 50 mls/hr Q12H IV 06/09/25 17:30 Albuterol 2.5 mg Q6HR NEB 06/09/25 18:00 Ipratropium [place] 0.5 mg Q6HR NEB 06/09/25 18:00 Acetylcysteine 200 mg Q6HR NEB 06/09/25 18:00 Diagnostic Test (Pha) 1 strip Q6HR 06/09/25 18:00 06/09/25 18:44 1 STRIP Insulin Human Regular Q6HR SC 06/09/25 18:00 Dextrose 50 ml UD PRN IV 06/09/25 17:45 Pantoprazole Sodium 40 mg DAILY IV 06/10/25 10:00 Examination Skin - Patients skin is warm and dry. HEENT - normocephalic, atraumatic, dry mucous membranes. Neck - full ROM, no LAD, jugular venous distention present Pulmonary - B/L decreased breath sounds with basilar rales cardiovascular - regular S1,S2 heard, no added sounds, no murmurs heard. capillary refill normal about 4 seconds GI - soft abdomen Neurological - Patient is disoriented, baseline not known, GCS 11 laboratory and microbiology Laboratory Tests 06/09/25 17:48 06/09/25 10:28 Test 06/09/25 17:48 Range/Units Serum Glucose 135 H 74-106 mg/dL Microbiology Date/Time Source Procedure Growth Status 06/08/25 19:00 Blood Blood Culture - Preliminary Resulted Problem List/Assessment/Plan Problem List/Assessment/Plan Sepsis likely due to pneumonia Bacteremia with a Gram-positive cocci in clusters and pairs r/o endocarditis Pneumonia likely aspiration due to Gram+/- bacteria Severe microcytic hypochromic anemia possible GI bleeding Acute Congestive heart failure, likely systolic h/o COPD h/o AFib on rivaroxaban, currently held Dementia Hypertensive heart disease with heart failure - IV fluids, judicious use since the patient has a history of heart failure, lactic acid within normal limits - started on IV antibiotics vancomycin, meropenem and doxycycline - blood transfusion, patient already got 2 PRBCs, repeat H&H in the evening at 6.4, 1 PRBC ordered - monitor hemoglobin and keep above 7 - stool occult blood pending - initial blood cultures showed growth of Gram-positive in clusters and pairs, sputum cultures pending PUD prophylaxis: Protonix DVT prophylaxis: SCDs Goals of care discussed with the patient's RN. Family contact not available Time spent: 37 minutes Plan discussed with Dr. Nichols Plan discussed with: Other (RN Mio) My Orders My Orders Orders - NADIYA MCPHERSON RESIDENT Procedure Category Date Status Time *Consult Dr. Calix CONS 06/09/25 Transmitted [facility]un[facility] 17:26 Vancomycin Per PHA 06/09/25 In Process Pharmacy 17:30 Electrocardigram EKG 06/09/25 Logged 17:26 Doxycycline PHA 06/09/25 In Process 100mg/100ml 17:30 Rapid Influenza A&B LAB 06/09/25 Logged 17:26 Covid19 Antigen Sade LAB 06/09/25 Logged Respiratory Culture SABRA 06/09/25 Logged W/ Gs 17:26 Sputum Induction RT 06/09/25 Logged 17:26 Basic Metabolic Panel LAB 06/10/25 Verified 04:00 Complete Blood Count LAB 06/10/25 Verified 04:00 Albuterol Medneb PHA 06/09/25 In Process (Ventolin Medneb) 18:00 Ipratropium Medneb PHA 06/09/25 In Process (Atrovent Medneb) 18:00 Acetylcysteine PHA 06/09/25 In Process Inhalation 20% 18:00 Sequential THEO 06/09/25 In Process Compression Device 17:35 Strict I & O THEO 06/09/25 In Process 17:35 Glucose Blood PHA 06/09/25 In Process (Accu-Chek Comfort 18:00 Insulin R (Human) PHA 06/09/25 In Process (Insulin R) 18:00 Dextrose 50% Syringe PHA 06/09/25 In Process 17:45 Meropenem 1gm Ivpb PHA 06/10/25 In Process (Merrem 1gm/50ml) 10:00 Vancomycin 1gm/250ml PHA 06/09/25 In Process Kit 19:00 Vancomycin,Random LAB 06/10/25 Verified 04:00 Ferritin LAB 06/09/25 In Process 18:06 Npo (Nothing By DIET 06/09/25 Transmitted Mouth) Diet Dinner * Swallow Request ST 06/09/25 Transmitted 18:06 2 Large Bore Ivs THEO 06/09/25 In Process (20mg Or Larg 18:06 Stool Occult Blood LAB 06/09/25 In Process 18:35 Insert Oconnor Catheter THEO 06/09/25 In Process 18:11 Ondansetron Hcl PHA 06/09/25 Logged (Zofran) 19:00 Pantoprazole PHA 06/09/25 Logged (Protonix) 22:00 CC Plasma Assessment Blood Product Administration S: 0400 Visit Coding STANDARD RES Billing Provider: ESEQUIEL NICHOLS MD Date of Service if different f: Jun 09, 2025 Common Visit Codes: [id number] INP/OBS CARE(HIGH) Secondary Visit Codes: 91242-[id number] CARE PLAN 30 MINUTES NADIYA MCPHERSON RESIDENT Jun 09, 2025 19:21 ESEQUIEL NICHOLS MD Jun 10, 2025 16:20
[2025-06-09] MEDS: IPRATROPIUM BROM 0.5 MG/2.5ML INH SOL NEB SCH (21:24)
[2025-06-09] MEDS: ALBUTEROL SULF 2.5 MG/0.5ML(0.5%) NEB SOLN NEB SCH (21:24)
[2025-06-09] MEDS: ACETYLCYSTEINE 20%(200MG/ML) SOL 4ML NEB SCH (21:28)
[2025-06-09] MEDS: PANTOPRAZOLE 40 MG/10 ML VIAL INJ IV SCH (21:39)
[2025-06-09] MEDS: VANCOMYCIN 1GM/250ML KIT 250 ML IV ONE (21:39)
[2025-06-09 23:29] LABS: COVID19 ANTIGEN SOFIA FIA NEGATIVE (NEGATIVE)
[2025-06-10] VITALS (19 sets, daily range): BP systolic 106–136; BP diastolic 55–111; PULSE 66–93; RESP 16–20; TEMP 97.2–98.8; O2SAT 93–100
[2025-06-10 06:56] LABS: Potassium 4.2 mmol/L (3.5-5.1); Sodium 142 mmol/L (136-145)
[2025-06-10 06:57] LABS: Anion Gap 11 (5-15)
[2025-06-10 07:02] LABS: BUN/Creatinine Ratio 33.3 (10.0-20.0)
[2025-06-10 07:08] LABS: Blood Urea Nitrogen 42 mg/dL (9-23); Calcium 8.0 mg/dL (8.7-10.4); Carbon Dioxide 17 mmol/L (20-31); Chloride 114 mmol/L (98-107); Glucose 109 mg/dL (74-106)
[2025-06-10 07:16] LABS: Hematocrit 24.8 % (41.0-53.0); Hemoglobin 7.1 g/dL (13.5-17.5); Mean Corpuscular Hemoglobin 18.9 pg (28.0-32.0); Mean Corpuscular Volume 66.3 fL (80.0-100.0); Nucleated Red Blood Cells % 0.8 %
[2025-06-10 08:26] LABS: Anisocytosis Moderate
[2025-06-10 08:37] LABS: Giant Platelets Few; Polychromasia Slight
[2025-06-10] MEDS ORDERED: PANTOPRAZOLE 40 MG/10 ML VIAL INJ IV SCH (10:00)
[2025-06-10] MEDS ORDERED: MEROPENEM 1GM IVPB 50 ML IV SCH (10:00)
[2025-06-10] MEDS: D5W/SOD CHL 0.45% 1,000 ML IV SCH (10:46)
[2025-06-10] MEDS: FUROSEMIDE 20 MG/2 ML VIAL IV ONE (11:55)
[2025-06-10 12:12] LABS: Hemoglobin 7.3 g/dL (13.5-17.5)
[2025-06-10 12:16] LABS: Hematocrit 25.7 % (41.0-53.0)
--- NOTE | 2025-06-10 15:38 | DVHCONRES ---
Date Seen: Jun 10, 2025 Resident Creating Document: LUIZ FRANCIS RESIDENT Referring Physician DR YOST History of Present Illness 84-year-old male with past medical history is diabetes, dementia, hypertension, coronary artery disease, COPD, atrial fibrillation (on rivaroxaban), anemia sent in from his custodial for possible syncopal event, altered mental status. History is taken from the medics got the history on scene. Patient was witnessed by facility staff to have an episode were he may have had a brief loss of consciousness. Did not fall or hit his head. Eyes rolled to the back of the head. Did not have any seizure-like activity. When he came to he appeared slightly more confused than his usual. Staff did not notice any facial droop, slurred speech, focal weakness on 1 side of the body. When EMS picked the patient up he had atrial fibrillation in the low 100s on their monitor, noted to be hypotensive to the 70s systolic, was not hypoxic, however, placed on nasal cannula for comfort. Upon arrival to the emergency department the patient denies any discomfort, knows his name, knows that he is in a hospital. On my eval, patient is A/Ox1, only oriented to name. Abd soft nontender Family History: Patient reports no known family medical history. Allergies: Coded Allergies: NO KNOWN ALLERGIES (Unverified , 01/09/17) Home Meds Active Scripts Ferrous Sulfate (FERROUS SULFATE) 325 Mg Tb, 1 TAB PO BID for 30 Days, #60 TAB 3 Refills Prov:SEBASTIAN APPIAH MD 02/05/24 Albuterol Sulfate (VENTOLIN MDI) 90 Mcg Ih, 90 MCG IN Q4HP PRN, #1 MCG Prov:OLIVIA MCNEAL MD 02/08/23 Reported Medications Calcium (Calcium) 500 Mg Tab, 500 MG PO BID, TAB 09/13/24 Famotidine (PEPCID TABLET) 20 Mg Tb, 2 TAB PO DAILY for GERD, #60 TAB 5 Refills 09/13/24 Cholecalciferol (VITAMIN D3) 5,000 Unit Cap, 5000 UNIT PO DAILY for SUPPLEMENT, CAP 09/13/24 Alendronate Sodium (Alendronate Sodium) 10 Mg Tab, 10 MG PO QWEEKLY for Osteoporosis/ Tuesdays, TAB 09/13/24 Atorvastatin Calcium (Lipitor) 40 Mg Tab, 1 TAB PO QPM, #90 TAB 1 Refill 11/10/18 Atenolol (Atenolol) 50 Mg Tab, 50 MG PO DAILY for HIGH BLOOD PRESSURE, MG 11/10/18 Triamterene & Hydrochlorothiaz (Maxzide) 1 Tab Tab, 1 TAB PO DAILY for HIGH CHOLESTEROL, #30 TAB 5 Refills 01/09/17 Metformin Hydrochloride (Metformin Hcl) 500 Mg Tab, 1 TAB PO HS, #60 TAB 3 Refills 01/09/17 Current Medications Current Medications Medications (Trade) Dose Ordered Sig/Renée Route PRN Reason Start Time Stop Time Status Last Admin Vancomycin HCl 0 ml @ 0 mls/hr PER PHARMACY IV 06/09/25 17:30 Meropenem 50 ml @ 17 mls/hr Q12HR IV 06/10/25 10:00 06/10/25 10:41 DC Doxycycline Hyclate 100 ml @ 50 mls/hr Q12H IV 06/09/25 17:30 06/10/25 05:41 Albuterol (Ventolin Medneb) 2.5 mg Q6HR NEB 06/09/25 18:00 06/10/25 11:46 Ipratropium [place] (Atrovent Medneb) 0.5 mg Q6HR NEB 06/09/25 18:00 06/10/25 11:46 Acetylcysteine (Mucomyst Inhalation 20%) 200 mg Q6HR NEB 06/09/25 18:00 06/10/25 11:46 Diagnostic Test (Pha) (Accu-Chek Comfort Curve T) 1 strip Q6HR 06/09/25 18:00 06/10/25 11:55 Insulin Human Regular (InsuLIN R) Q6HR SC 06/09/25 18:00 Dextrose 50 ml UD PRN IV Blood Sugar LESS THAN 60 06/09/25 17:45 Pantoprazole Sodium (Protonix) 40 mg DAILY IV 06/10/25 10:00 06/09/25 18:54 DC Ondansetron HCl (Zofran) 4 mg Q6HPRN PRN IV NAUSEA / VOMITING 06/09/25 19:00 Pantoprazole Sodium (Protonix) 40 mg BID IV 06/09/25 22:00 06/10/25 10:54 Dextrose/Sodium Chloride 1,000 ml @ 75 mls/hr [id number] IV 06/10/25 08:45 06/10/25 10:46 Ceftriaxone Sodium 50 ml @ 100 mls/hr DAILY@09 IV 06/11/25 09:00 Vancomycin HCl 100 ml @ 200 mls/hr Q12H IV 06/10/25 12:00 06/10/25 12:00 Iron Sucrose 110 ml @ 110 mls/hr DAILY@1200 IV 06/10/25 14:45 06/14/25 14:44 Review of Systems Couldn't be obtained as A/Ox1 Vital Signs Vital Signs Date Time Temp Pulse Resp B/P (MAP) Pulse Ox O2 Delivery O2 Flow Rate FiO2 06/10/25 11:55 136/111 06/10/25 11:54 84 18 100 06/10/25 11:46 Room Air* 0 21 06/10/25 09:00 97.8 97.8 Physical Exam Skin - Patients skin is warm and dry. HEENT - normocephalic, atraumatic, dry mucous membranes. Neck - full ROM, no LAD, jugular venous distention present Pulmonary - B/L decreased breath sounds with basilar rales cardiovascular - regular S1,S2 heard, no added sounds, no murmurs heard. capillary refill normal about 4 seconds GI - soft abdomen, non tender, hypooactive A/Ox1 to name only Labs/Diagnostic Data Labs Test 06/10/25 12:00 06/10/25 05:56 06/09/25 21:51 06/09/25 18:05 Range/Units Hemoglobin 7.3 L 13.5-17.5 g/dL Hematocrit 25.7 L 41.0-53.0 % POC Glucose 109 H 70-106 mg/dl White Blood Count 8.7 # 4.4-10.8 10^3/uL Red Blood Count 3.74 L 4.5-5.90 10^6/uL Mean Corpuscular Volume 66.3 L 80.0-100.0 fL Mean Corpuscular Hemoglobin 18.9 L 28.0-32.0 pg Mean Corpuscular Hemoglobin Concent 28.5 L 32.0-36.0 g/dL Red Cell Distribution Width 31.1 H 11.8-14.3 % Platelet Count 252 140-450 10^3/uL Mean Platelet Volume 8.8 6.9-10.8 fL Neutrophils (%) (Auto) 79.2 37.0-80.0 % Lymphocytes (%) (Auto) 4.3 L 10.0-50.0 % Monocytes (%) (Auto) 16.5 H 0.0-12.0 % Eosinophils (%) (Auto) 0.0 0.0-7.0 % Basophils (%) (Auto) 0.0 0.0-2.0 % Neutrophils # (Auto) 6.9 1.6-8.6 10 ^3/uL Lymphocytes # (Auto) 0.4 0.4-5.4 10 ^3/uL Monocytes # (Auto) 1.4 H 0-1.3 10 ^3/uL Eosinophils # (Auto) 0 0-0.8 10 ^3/uL Basophils # (Auto) 0 0-0.2 10 ^3/uL Nucleated Red Blood Cells 0.8 % Platelet Estimate Adequate Large Platelets Few Giant Platelets Few Polychromasia Slight Hypochromasia (manual) Marked Anisocytosis (manual) Moderate Microcytosis Marked Target Cells Moderate Schistocytes Moderate Sodium Level 142 136-145 mmol/L Potassium Level 4.2 3.5-5.1 mmol/L Chloride Level 114 H 98-107 mmol/L Carbon Dioxide Level 17 L 20-31 mmol/L Anion Gap 11 5-15 Blood Urea Nitrogen 42 #H 9-23 mg/dL Creatinine 1.26 0.700-1.30 mg/dL Glomerular Filtration Rate Calc 56 >90 mL/min BUN/Creatinine Ratio 33.3 H 10.0-20.0 Serum Glucose 109 H 74-106 mg/dL Calcium Level 8.0 L 8.7-10.4 mg/dL Random Vancomycin Level 11.7 H 5-10 ug/mL Influenza Type A Antigen Negative Negative Influenza Type B Antigen Negative Negative SARS-CoV-2 Antigen (Rapid) Negative NEGATIVE Stool Occult Blood Positive Negative Stool Occult Blood Sample #3 Negative Test 06/09/25 17:48 06/09/25 09:14 06/09/25 02:27 06/08/25 20:03 Range/Units Reticulocyte Count (auto) 2.17 H 0.5-1.5 % Lactic Acid Level 1.9 0.4-2.0 mmol/L Phosphorus Level 4.8 2.4-5.1 mg/dL Magnesium Level 2.5 1.6-2.6 mg/dL Iron Level 15 L 65-175 ug/dL Total Iron Binding Capacity 363 250-425 ug/dL Percent Iron Saturation 4.1 L 20-55 % Ferritin 9.2 L 22-322 ng/mL Urine Color Light-yellow Yellow Urine Clarity Clear Clear Urine pH 5.0 5.0-9.0 Urine Specific Vancleve 1.014 1.001-1.035 Urine Protein Negative Negative Urine Ketones Negative Negative Urine Blood Negative Negative /uL Urine Nitrite Negative Negative Urine Bilirubin Negative Negative Urine Urobilinogen Normal Negative mg/dL Urine Leukocyte Esterase Negative Negative /uL Urine RBC 1 0 - 3 /hpf Urine Microscopic WBC < 1 0-3 /HPF Urine Squamous Epithelial Cells None seen <5 /hpf Urine Bacteria Few H None Seen /hpf Urine Glucose Normal Normal mg/dL Urine Opiates Screen Neg NEGATIVE Urine Fentanyl Screen Neg NEGATIVE Urine Barbiturates Screen Neg NEGATIVE Urine Phencyclidine Screen Neg NEGATIVE Urine Amphetamines Screen Neg NEGATIVE Urine Benzodiazepines Screen Neg NEGATIVE Urine Cocaine Screen Neg NEGATIVE Urine Cannabinoids Screen Neg NEGATIVE Total Bilirubin 1.0 0.2-1.0 mg/dL Aspartate Amino Transferase (AST) 16 13-40 U/L Alanine Aminotransferase (ALT) < 9 7-40 U/L Alkaline Phosphatase 72 46-116 U/L Total Protein 6.9 5.7-8.2 g/dL Albumin 3.9 3.2-4.8 g/dL Troponin I High Sensitivity 56 *H </=54 ng/L Test 06/08/25 19:15 06/08/25 18:40 06/08/25 18:35 Range/Units Blood Gas Specimen Type Venous Blood Gas Sample Site Vbg - n/a Blood Gas Patient Temperature 37.0 Arterial Blood Date Drawn Azchery Test N/a Venous Blood pH 7.253 L 7.320-7.430 Venous Blood pCO2 at Patient Temp 33.8 L 38.0-54.0 mmHg Venous Blood pO2 at Patient Temp < 36.5 23.0-48.0 mmHg Venous Blood HCO3 14.6 L 22.0-29.0 mmol/L Venous Blood Base Excess -11.5 L -2.0-3.0 mmol/L Blood Gas Liter Flow 3.00 Blood Gas Modality Nasal cannula FiO2 % 32.0 Ammonia 12 11-32 umol/L Prothrombin Time 19.9 H 9.3-11.8 sec Prothrombin Time INR 2.01 H 0.9-1.15 Activated Partial Thromboplast Time 32.5 24.5-34.5 SEC B-Type Natriuretic Peptide 1452.14 0-100 pg/mL Plasma/Serum Blood Alcohol < 3.0 <10 mg/dL Microbiology Date/Time Source Procedure Growth Status 06/08/25 19:00 Blood Blood Culture - Preliminary Resulted Assessment Acute blood loss anemia s/p 3 rbcs ?lower GI bleed Iron def anemia Hx of hiatal hernia 2016 Hx of polyps ?Dementia DAYNA Sepsis likely due to pneumonia Pneumonia likely aspiration due to Gram+/- bacteria Severe microcytic hypochromic anemia Congestive heart failure, likely systolic h/o COPD h/o AFib on rivaroxaban, currently held Plan; Recommendation; Keep NPO, swallow eval pending. Given the likely advanced dementia, sepsis with aspiration pna, patient is unstabe for any GI intervention at this time. Continue conservative management. Monitor H&H bid Positive SOB. Continue PPI 40mg IV BID IV iron x5 days 06/10 accu checks Caraf[place] after swallow passed CT Abd/pel iv con once DAYNA resolves Patient will benefit from upper and lower EGD once stabilized Cntinue IV antibiotics, fluids gentle Avoid nsaids/aspirin/anticoagulation/motrin Poor prognosis Plan discussed with Dr Yost, YADI GRIER Case discussed with Dr Lan Plan discussed with: Other (nurse Cheri) LUIZ FRANCIS RESIDENT Jun 10, 2025 15:38
[2025-06-10] MEDS: METOPROLOL SUCCINATE XL 50 MG TAB PO ONE (15:45)
--- NOTE | 2025-06-10 15:48 | DVHPNRES ---
Progress Note Date Seen: Jun 10, 2025 Resident Creating Document: NADIYA MCPHERSON RESIDENT Medical Necessity Reason Pt with a Central, PICC or Fol: Yes The following are medically ne: Oconnor Catheter Subjective Review of Systems Patient seen and examined with the bedside Mental status improved and patient is following some of the commands Baseline dementia Stool occult blood was positive and GI consulted for further workup Objective vital signs Vital Sign Date Time Temp Pulse Resp B/P (MAP) Pulse Ox O2 Delivery O2 Flow Rate FiO2 06/10/25 11:55 136/111 06/10/25 11:54 84 18 100 06/10/25 11:46 Room Air* 0 21 06/10/25 09:00 97.8 97.8 Total Intake and Output 06/09/25 06/09/25 06/10/25 15:00 23:00 07:00 Intake Total 300 ml 400 ml 900 ml Output Total 120 ml 125 ml Balance 180 ml 400 ml 775 ml medications Current Medications Medications Dose Ordered Sig/Renée Route Start Time Stop Time Status Last Admin Dose Admin Morphine Sulfate 2 mg Q4HPRN PRN IV 06/08/25 23:00 Vancomycin HCl 0 ml @ 0 mls/hr PER PHARMACY IV 06/09/25 17:30 Doxycycline Hyclate 100 ml @ 50 mls/hr Q12H IV 06/09/25 17:30 06/10/25 05:41 50 MLS/HR Albuterol 2.5 mg Q6HR NEB 06/09/25 18:00 06/10/25 11:46 2.5 MG Ipratropium [place] 0.5 mg Q6HR NEB 06/09/25 18:00 06/10/25 11:46 0.5 MG Acetylcysteine 200 mg Q6HR NEB 06/09/25 18:00 06/10/25 11:46 200 MG Diagnostic Test (Pha) 1 strip Q6HR 06/09/25 18:00 06/10/25 11:55 1 STRIP Insulin Human Regular Q6HR SC 06/09/25 18:00 Dextrose 50 ml UD PRN IV 06/09/25 17:45 Ondansetron HCl 4 mg Q6HPRN PRN IV 06/09/25 19:00 Pantoprazole Sodium 40 mg BID IV 06/09/25 22:00 06/10/25 10:54 40 MG Dextrose/Sodium Chloride 1,000 ml @ 75 mls/hr [id number] IV 06/10/25 08:45 06/10/25 10:46 75 MLS/HR Ceftriaxone Sodium 50 ml @ 100 mls/hr DAILY@09 IV 06/11/25 09:00 Vancomycin HCl 100 ml @ 200 mls/hr Q12H IV 06/10/25 12:00 06/10/25 12:00 200 MLS/HR Iron Sucrose 110 ml @ 110 mls/hr DAILY@1200 IV 06/10/25 14:45 06/14/25 14:44 Examination Skin - Patients skin is warm and dry. HEENT - normocephalic, atraumatic, dry mucous membranes. Neck - full ROM, no LAD, jugular venous distention present Pulmonary - B/L improved breath sounds cardiovascular - regular S1,S2 heard, no added sounds, no murmurs heard. capillary refill normal about 3 seconds GI - soft abdomen Neurological - Patient is alert and oriented time 1, GCS 12, failed swallow evaluation laboratory and microbiology Laboratory Tests 06/10/25 12:00 06/10/25 05:56 Test 06/10/25 05:56 Range/Units Serum Glucose 109 H 74-106 mg/dL Microbiology Date/Time Source Procedure Growth Status 06/08/25 19:00 Blood Blood Culture - Preliminary Resulted Problem List/Assessment/Plan Problem List/Assessment/Plan Sepsis likely due to pneumonia Bacteremia with a Gram-positive cocci in clusters and pairs r/o endocarditis Pneumonia likely aspiration due to Gram+/- bacteria Severe microcytic hypochromic anemia GI bleeding likely upper GI Congestive heart failure, likely systolic h/o COPD, no exacerbation AFib, currently held Dementia Hypertensive heart disease with heart failure - IV fluids, judicious use since the patient has a history of heart failure, lactic acid within normal limits - on IV antibiotics vancomycin, ceftriaxone and doxycycline - stool occult blood positive, monitor H&H and keep hemoglobin over 7, anticoagulation held - GI consulted PUD prophylaxis: Protonix DVT prophylaxis: SCDs Goals of care discussed with the patient's and friend Kelvin and they said " we do not want him to suffer" and want to make him DNR. Code status: DNR Time spent: 38 minutes Plan discussed with Dr. Amin Plan discussed with: Spouse, Other (RN) My Orders My Orders Orders - NADIYA MCPHERSON RESIDENT Procedure Category Date Status Time *Consult Dr. Calix CONS 06/09/25 Transmitted [facility]un[facility] 17:26 Vancomycin Per PHA 06/09/25 In Process Pharmacy 17:30 Electrocardigram EKG 06/09/25 Logged 17:26 Doxycycline PHA 06/09/25 In Process 100mg/100ml 17:30 Respiratory Culture SABRA 06/09/25 Logged W/ Gs 17:26 Sputum Induction RT 06/09/25 Logged 17:26 Albuterol Medneb PHA 06/09/25 In Process (Ventolin Medneb) 18:00 Ipratropium Medneb PHA 06/09/25 In Process (Atrovent Medneb) 18:00 Acetylcysteine PHA 06/09/25 In Process Inhalation 20% 18:00 Sequential THEO 06/09/25 In Process Compression Device 17:35 Strict I & O THEO 06/09/25 In Process 17:35 Glucose Blood PHA 06/09/25 In Process (Accu-Chek Comfort 18:00 Insulin R (Human) PHA 06/09/25 In Process (Insulin R) 18:00 Dextrose 50% Syringe PHA 06/09/25 In Process 17:45 Npo (Nothing By DIET 06/09/25 Transmitted Mouth) Diet Dinner * Swallow Request ST 06/09/25 Transmitted 18:06 2 Large Bore Ivs THEO 06/09/25 In Process (20mg Or Larg 18:06 Insert Oconnor Catheter THEO 06/09/25 In Process 18:11 Ondansetron Hcl PHA 06/09/25 In Process (Zofran) 19:00 Pantoprazole PHA 06/09/25 In Process (Protonix) 22:00 D5w/Sod Chl 0.45% PHA 06/10/25 In Process (D5w 1/2ns) 08:45 Ceftriaxone 1gm/50ml PHA 06/11/25 In Process (Rocephin) 09:00 Vancomycin 500mg/100ml PHA 06/10/25 In Process 12:00 Vancomycin Per THEO 06/10/25 In Process Pharmacy Protoc 12:00 Creatinine LAB 06/11/25 Verified 04:00 Vancomycin,Trough LAB 06/11/25 Verified 23:00 * Gi Dvh Roll Weigher CONS 06/10/25 Transmitted 12:36 Iron Sucrose Complex PHA 06/10/25 In Process (Venofer) 14:45 Hemoglobin & LAB 06/10/25 Logged Hematocrit 20:00 Basic Metabolic Panel LAB 06/11/25 Verified 04:00 Complete Blood Count LAB 06/11/25 Verified 04:00 CC Plasma Assessment Blood Product Administration S: 0400 Visit Coding STANDARD RES Billing Provider: OSORIO AMIN MD Date of Service if different f: Jun 10, 2025 Common Visit Codes: [id number] INP/OBS CARE(HIGH) NADIYA MCPHERSON RESIDENT Jun 10, 2025 15:48
--- NOTE | 2025-06-10 16:08 | DVHPN2 ---
Progress Note - Dictate Date Seen: Jun 10, 2025 Medical Necessity Reason Pt with a Central, PICC or Fol: Yes The following are medically ne: Oconnor Catheter Subjective PT WITH AMS LEUKOCYTOSIS SEVERE ANEMIA GI BLOOD LOSS PMH DIABETES VASCULOPATHY NEUROPATHY CAD HX OF AFIB COPD DEMENTIA AFIB [facility] RESULTS: * Left main calcified, no flow restrictive lesion. * Left anterior descending artery, mild intimal irregularity, rapid tapering extensive small vessel disease typical of diabetes, but no flow restrictive lesion. * Circumflex artery nondominant vessel without any flow restrictive lesion. Again, diffuse disease throughout with small vessel disease. * Right coronary artery, similarly, dominant vessel, no flow restrictive lesion; however, mild diffuse disease with extensive small vessel disease. * Ejection fraction is preserved with an estimated EF of 60% with LVEDP of 8 mmHg. Left ventricular systolic pressure 127. No gradient across the aortic valve. ECHO NL EF vital signs Vital Sign Date Time Temp Pulse Resp B/P (MAP) Pulse Ox O2 Delivery O2 Flow Rate FiO2 06/10/25 11:55 136/111 06/10/25 11:54 84 18 100 06/10/25 11:46 Room Air* 0 21 06/10/25 09:00 97.8 97.8 Total Intake and Output 06/09/25 06/09/25 06/10/25 15:00 23:00 07:00 Intake Total 300 ml 400 ml 900 ml Output Total 120 ml 125 ml Balance 180 ml 400 ml 775 ml medications Current Medications Medications Dose Ordered Sig/Renée Route Start Time Stop Time Status Last Admin Dose Admin Morphine Sulfate 2 mg Q4HPRN PRN IV 06/08/25 23:00 Vancomycin HCl 0 ml @ 0 mls/hr PER PHARMACY IV 06/09/25 17:30 Doxycycline Hyclate 100 ml @ 50 mls/hr Q12H IV 06/09/25 17:30 06/10/25 05:41 50 MLS/HR Albuterol 2.5 mg Q6HR NEB 06/09/25 18:00 06/10/25 11:46 2.5 MG Ipratropium [place] 0.5 mg Q6HR NEB 06/09/25 18:00 06/10/25 11:46 0.5 MG Acetylcysteine 200 mg Q6HR NEB 06/09/25 18:00 06/10/25 11:46 200 MG Diagnostic Test (Pha) 1 strip Q6HR 06/09/25 18:00 06/10/25 11:55 1 STRIP Insulin Human Regular Q6HR SC 06/09/25 18:00 Dextrose 50 ml UD PRN IV 06/09/25 17:45 Ondansetron HCl 4 mg Q6HPRN PRN IV 06/09/25 19:00 Pantoprazole Sodium 40 mg BID IV 06/09/25 22:00 06/10/25 10:54 40 MG Dextrose/Sodium Chloride 1,000 ml @ 75 mls/hr [id number] IV 06/10/25 08:45 06/10/25 10:46 75 MLS/HR Ceftriaxone Sodium 50 ml @ 100 mls/hr DAILY@09 IV 06/11/25 09:00 Vancomycin HCl 100 ml @ 200 mls/hr Q12H IV 06/10/25 12:00 06/10/25 12:00 200 MLS/HR Iron Sucrose 110 ml @ 110 mls/hr DAILY@1200 IV 06/10/25 14:45 06/14/25 14:44 Metoprolol Succinate 25 mg DAILY PO 06/11/25 10:00 UNV laboratory and microbiology Laboratory Tests 06/10/25 12:00 06/10/25 05:56 Test 06/10/25 05:56 Range/Units Serum Glucose 109 H 74-106 mg/dL Problem List GI BLOOD LOSS PMH DIABETES VASCULOPATHY NEUROPATHY CAD HX OF AFIB COPD DEMENTIA AFIB [facility] RESULTS: * Left main calcified, no flow restrictive lesion. * Left anterior descending artery, mild intimal irregularity, rapid tapering extensive small vessel disease typical of diabetes, but no flow restrictive lesion. * Circumflex artery nondominant vessel without any flow restrictive lesion. Again, diffuse disease throughout with small vessel disease. * Right coronary artery, similarly, dominant vessel, no flow restrictive lesion; however, mild diffuse disease with extensive small vessel disease. * Ejection fraction is preserved with an estimated EF of 60% with LVEDP of 8 mmHg. Left ventricular systolic pressure 127. No gradient across the aortic valve. ECHO NL EF Assessment/Plan SEVERE ANEMIA HOLD PLAVIX AND ALL ANTI COAGULANTS IV FLUID PT WITH METABOLIC ACIDOSIS CORRECT ACIDOSIS CC Plasma Assessment Blood Product Administration S: [id number] KADI MYERS MD Jun 10, 2025 16:08
--- NOTE | 2025-06-10 16:10 | DVHPN2 ---
Progress Note - Dictate Date Seen: Jun 10, 2025 Medical Necessity Reason Pt with a Central, PICC or Fol: Yes The following are medically ne: Oconnor Catheter Subjective PT WITH AMS LEUKOCYTOSIS SEVERE ANEMIA GI BLOOD LOSS PMH DIABETES VASCULOPATHY NEUROPATHY CAD HX OF AFIB COPD DEMENTIA AFIB [facility] RESULTS: * Left main calcified, no flow restrictive lesion. * Left anterior descending artery, mild intimal irregularity, rapid tapering extensive small vessel disease typical of diabetes, but no flow restrictive lesion. * Circumflex artery nondominant vessel without any flow restrictive lesion. Again, diffuse disease throughout with small vessel disease. * Right coronary artery, similarly, dominant vessel, no flow restrictive lesion; however, mild diffuse disease with extensive small vessel disease. * Ejection fraction is preserved with an estimated EF of 60% with LVEDP of 8 mmHg. Left ventricular systolic pressure 127. No gradient across the aortic valve. ECHO NL EF vital signs Vital Sign Date Time Temp Pulse Resp B/P (MAP) Pulse Ox O2 Delivery O2 Flow Rate FiO2 06/10/25 11:55 136/111 06/10/25 11:54 84 18 100 06/10/25 11:46 Room Air* 0 21 06/10/25 09:00 97.8 97.8 Total Intake and Output 06/09/25 06/09/25 06/10/25 15:00 23:00 07:00 Intake Total 300 ml 400 ml 900 ml Output Total 120 ml 125 ml Balance 180 ml 400 ml 775 ml medications Current Medications Medications Dose Ordered Sig/Renée Route Start Time Stop Time Status Last Admin Dose Admin Morphine Sulfate 2 mg Q4HPRN PRN IV 06/08/25 23:00 Vancomycin HCl 0 ml @ 0 mls/hr PER PHARMACY IV 06/09/25 17:30 Doxycycline Hyclate 100 ml @ 50 mls/hr Q12H IV 06/09/25 17:30 06/10/25 05:41 50 MLS/HR Albuterol 2.5 mg Q6HR NEB 06/09/25 18:00 06/10/25 11:46 2.5 MG Ipratropium [place] 0.5 mg Q6HR NEB 06/09/25 18:00 06/10/25 11:46 0.5 MG Acetylcysteine 200 mg Q6HR NEB 06/09/25 18:00 06/10/25 11:46 200 MG Diagnostic Test (Pha) 1 strip Q6HR 06/09/25 18:00 06/10/25 11:55 1 STRIP Insulin Human Regular Q6HR SC 06/09/25 18:00 Dextrose 50 ml UD PRN IV 06/09/25 17:45 Ondansetron HCl 4 mg Q6HPRN PRN IV 06/09/25 19:00 Pantoprazole Sodium 40 mg BID IV 06/09/25 22:00 06/10/25 10:54 40 MG Dextrose/Sodium Chloride 1,000 ml @ 75 mls/hr [id number] IV 06/10/25 08:45 06/10/25 10:46 75 MLS/HR Ceftriaxone Sodium 50 ml @ 100 mls/hr DAILY@09 IV 06/11/25 09:00 Vancomycin HCl 100 ml @ 200 mls/hr Q12H IV 06/10/25 12:00 06/10/25 12:00 200 MLS/HR Iron Sucrose 110 ml @ 110 mls/hr DAILY@1200 IV 06/10/25 14:45 06/14/25 14:44 Metoprolol Succinate 25 mg DAILY PO 06/11/25 10:00 UNV laboratory and microbiology Laboratory Tests 06/10/25 12:00 06/10/25 05:56 Test 06/10/25 05:56 Range/Units Serum Glucose 109 H 74-106 mg/dL Problem List GI BLOOD LOSS PMH DIABETES VASCULOPATHY NEUROPATHY CAD HX OF AFIB COPD DEMENTIA AFIB [facility] RESULTS: * Left main calcified, no flow restrictive lesion. * Left anterior descending artery, mild intimal irregularity, rapid tapering extensive small vessel disease typical of diabetes, but no flow restrictive lesion. * Circumflex artery nondominant vessel without any flow restrictive lesion. Again, diffuse disease throughout with small vessel disease. * Right coronary artery, similarly, dominant vessel, no flow restrictive lesion; however, mild diffuse disease with extensive small vessel disease. * Ejection fraction is preserved with an estimated EF of 60% with LVEDP of 8 mmHg. Left ventricular systolic pressure 127. No gradient across the aortic valve. ECHO NL EF Assessment/Plan SEVERE ANEMIA HOLD PLAVIX AND ALL ANTI COAGULANTS IV FLUID PT WITH METABOLIC ACIDOSIS CORRECT ACIDOSIS TRANSFUSION PRBS KEEP HCT >30 Plan discussed with: Patient Critical Care Time(min): 35 CC Plasma Assessment Blood Product Administration S: [id number] KADI MYERS MD Jun 10, 2025 16:10
[2025-06-10] MEDS: IRON SUCROSE COMPLEX 110 ML IV SCH (16:54)
[2025-06-10 20:02] LABS: Hematocrit 23.4 % (41.0-53.0)
[2025-06-10 20:09] LABS: Hemoglobin 6.8 g/dL (13.5-17.5)
[2025-06-11] VITALS (20 sets, daily range): BP systolic 97–119; BP diastolic 50–76; PULSE 67–97; RESP 16–20; TEMP 97.6–98.5; O2SAT 90–100
[2025-06-11 07:47] LABS: Hemoglobin 8.6 g/dL (13.5-17.5); Mean Corpuscular Hemoglobin 20.0 pg (28.0-32.0)
[2025-06-11 07:50] LABS: Hematocrit 30.1 % (41.0-53.0); Mean Corpuscular Volume 70.0 fL (80.0-100.0); Nucleated Red Blood Cells % 0.6 %
[2025-06-11 08:37] LABS: Anisocytosis Moderate
[2025-06-11 08:38] LABS: Polychromasia Slight
[2025-06-11 08:39] LABS: Ovalocytes FEW
[2025-06-11 08:56] LABS: Anion Gap 17 (5-15); Calcium 7.9 mg/dL (8.7-10.4); Carbon Dioxide 19 mmol/L (20-31); Chloride 111 mmol/L (98-107); Potassium 3.2 mmol/L (3.5-5.1); Sodium 147 mmol/L (136-145)
[2025-06-11 09:01] LABS: BUN/Creatinine Ratio 30.1 (10.0-20.0); Glucose 102 mg/dL (74-106)
[2025-06-11 09:02] LABS: Blood Urea Nitrogen 34 mg/dL (9-23)
[2025-06-11] MEDS: METOPROLOL SUCCINATE XL 50 MG TAB PO SCH (09:47)
--- NOTE | 2025-06-11 10:37 | ECG ---
[facility] Test Date: 2025-06-10 Test Time: 10:24:39 Pat Name: FLORINDA HENNESSY Department: Respiratoy Room: 0247 Gender: M Criminal Defense Attorney: PRASHANTH : 1940 Requested By: NAIDYA MCPHERSON Order Number: [id number] Reading MD: Rob Waggoner Measurements Intervals [place] Rate: 84 P: 0 CA: 0 QRS: 54 QRSD: 123 T: 34 QT: 420 QTc: 497 Interpretive Statements Atrial fibrillation Right bundle branch block Baseline wander in lead(s) V6 Electronically Signed On 06-16-2025 18:19:06 PST by Rob Waggoner Please click the below link to view image of tracing.
[2025-06-11] MEDS ORDERED: PPN PER PHARMACY 0 ML IV SCH (11:45)
--- NOTE | 2025-06-11 11:53 | DVHPNRES ---
Progress Note Date Seen: Jun 11, 2025 Resident Creating Document: NADIYA MCPHERSON RESIDENT Medical Necessity Reason Pt with a Central, PICC or Fol: Yes The following are medically ne: Oconnor Catheter Subjective Review of Systems Patient seen and examined with the bedside Seems like he is at his baseline mental status Hemoglobin dropped yesterday in the evening, 1 PRBC was given now in the morning at 8.6 Swallow evaluation pending Objective vital signs Vital Sign Date Time Temp Pulse Resp B/P (MAP) Pulse Ox O2 Delivery O2 Flow Rate FiO2 06/11/25 11:18 80 19 100 06/11/25 11:18 Room Air 0.0 06/11/25 11:18 21 06/11/25 08:02 97.7 97/66 (76) 97.7 Total Intake and Output 06/10/25 06/10/25 06/11/25 15:00 23:00 07:00 Intake Total 200 ml 0 ml 700 ml Output Total 150 ml 2800 ml Balance 200 ml -150 ml -2100 ml medications Current Medications Medications Dose Ordered Sig/Renée Route Start Time Stop Time Status Last Admin Dose Admin Morphine Sulfate 2 mg Q4HPRN PRN IV 06/08/25 23:00 Vancomycin HCl 0 ml @ 0 mls/hr PER PHARMACY IV 06/09/25 17:30 Doxycycline Hyclate 100 ml @ 50 mls/hr Q12H IV 06/09/25 17:30 06/11/25 05:34 50 MLS/HR Albuterol 2.5 mg Q6HR NEB 06/09/25 18:00 06/11/25 11:12 2.5 MG Ipratropium [place] 0.5 mg Q6HR NEB 06/09/25 18:00 06/11/25 11:12 0.5 MG Acetylcysteine 200 mg Q6HR NEB 06/09/25 18:00 06/11/25 11:12 200 MG Diagnostic Test (Pha) 1 strip Q6HR 06/09/25 18:00 06/11/25 06:09 1 STRIP Insulin Human Regular Q6HR SC 06/09/25 18:00 06/11/25 06:08 3 UNITS Dextrose 50 ml UD PRN IV 06/09/25 17:45 Ondansetron HCl 4 mg Q6HPRN PRN IV 06/09/25 19:00 Pantoprazole Sodium 40 mg BID IV 06/09/25 22:00 06/11/25 09:29 40 MG Dextrose/Sodium Chloride 1,000 ml @ 75 mls/hr [id number] IV 06/10/25 08:45 06/10/25 21:35 75 MLS/HR Ceftriaxone Sodium 50 ml @ 100 mls/hr DAILY@09 IV 06/11/25 09:00 06/11/25 09:27 100 MLS/HR Vancomycin HCl 100 ml @ 200 mls/hr Q12H IV 06/10/25 12:00 06/11/25 02:38 200 MLS/HR Iron Sucrose 110 ml @ 110 mls/hr DAILY@1200 IV 06/10/25 14:45 06/14/25 14:44 06/10/25 16:54 110 MLS/HR Metoprolol Succinate 25 mg DAILY PO 06/11/25 10:00 Examination Skin - Patients skin is warm and dry. HEENT - normocephalic, atraumatic, dry mucous membranes. Neck - full ROM, no LAD, no JVD Pulmonary - B/L improved breath sounds, no rales or wheezing cardiovascular - regular S1,S2 heard, no added sounds, no murmurs heard. capillary refill normal about 3 seconds GI - soft abdomen, bowel sounds normoactive Neurological - Patient is alert and oriented time 1, GCS 12, failed swallow evaluation laboratory and microbiology Laboratory Tests 06/11/25 07:19 Test 06/11/25 07:19 Range/Units Serum Glucose 102 74-106 mg/dL Microbiology Date/Time Source Procedure Growth Status 06/08/25 19:00 Blood Blood Culture - Preliminary Resulted Problem List/Assessment/Plan Problem List/Assessment/Plan Sepsis likely due to pneumonia Bacteremia with a Gram-positive cocci in clusters and pairs r/o endocarditis Pneumonia likely aspiration due to Gram+/- bacteria Severe microcytic hypochromic anemia GI bleeding likely upper GI Congestive heart failure, likely systolic h/o COPD, no exacerbation AFib, anticoagulation held because of anemia Dementia Hypertensive heart disease with heart failure - IV fluids, judicious use since the patient has a history of heart failure, lactic acid within normal limits - on IV antibiotics vancomycin, ceftriaxone and doxycycline - stool occult blood positive, monitor H&H and keep hemoglobin over 7, anticoagulation held - GI consulted, and they recommended patient might benefit from upper endoscopy after he is stable PUD prophylaxis: Protonix DVT prophylaxis: SCDs Goals of care discussed with the patient's and friend Kelvin and they said " we do not want him to suffer" and want to make him DNI. Code status: DNI, compressions and medications, no intubation Time spent: 38 minutes Plan discussed with Dr. Pritchett Plan discussed with: Spouse, Other (RN) My Orders My Orders Orders - NADIYA MCPHERSON Procedure Category Date Status Time * Gi Dvh Technician Helper Instrument CONS 06/10/25 Transmitted 12:36 Iron Sucrose Complex PHA 06/10/25 In Process (Venofer) 14:45 Metoprolol Xl PHA 06/11/25 In Process Succinate (Toprol Xl) 10:00 Code Status CODE 06/10/25 Transmitted 15:37 Potassium Chloride PHA 06/11/25 In Process (Potassium Chloride). 11:00 Albuterol Medneb PHA 06/11/25 Logged (Ventolin Medneb) 14:00 Ipratropium Medneb PHA 06/11/25 Logged (Atrovent Medneb) 14:00 Ppn Per Pharmacy PHA 06/11/25 Logged 11:45 Hepatic Panel LAB 06/11/25 Logged 11:36 Complete Blood Count LAB 06/11/25 Logged 16:00 Complete Blood Count LAB 06/12/25 Verified 04:00 Basic Metabolic Panel LAB 06/12/25 Verified 04:00 CC Plasma Assessment Blood Product Administration S: [id number] Visit Coding STANDARD RES Billing Provider: SONI PRITCHETT MD Date of Service if different f: Jun 11, 2025 Common Visit Codes: 35124-[id number] INP/OBS CARE(HIGH) NADIYA MCPHERSON RESIDENT Jun 11, 2025 11:53
[2025-06-11] MEDS ORDERED: DEXTROSE (50%) 50ML SYRG IV SCH (12:15)
[2025-06-11 12:27] LABS: Albumin 3.5 g/dL (3.2-4.8); Alkaline Phosphatase 64 U/L (46-116); Total Protein 6.3 g/dL (5.7-8.2)
[2025-06-11 12:28] LABS: Alanine Aminotransferase < 9 U/L (7-40); Bilirubin, Direct 0.5 mg/dL (<0.3); Bilirubin, Total 1.2 mg/dL (0.2-1.0); Magnesium 2.4 mg/dL (1.6-2.6)
[2025-06-11 12:30] LABS: Albumin 3.6 g/dL (3.2-4.8)
[2025-06-11] MEDS: POTASSIUM CHLORIDE 40 MEQ, LIDOCAINE 1% (LOCAL ANESTH.) 4 ML in SODIUM CHL 0.9% 250 ML IV ONE (13:13)
[2025-06-11] MEDS ORDERED: IPRATROPIUM BROM 0.5 MG/2.5ML INH SOL NEB SCH (14:00)
[2025-06-11] MEDS ORDERED: ALBUTEROL SULF 2.5 MG/0.5ML(0.5%) NEB SOLN NEB SCH (14:00)
[2025-06-11 16:40] LABS: Hematocrit 32.3 % (41.0-53.0); Hemoglobin 9.5 g/dL (13.5-17.5); Mean Corpuscular Hemoglobin 19.5 pg (28.0-32.0); Mean Corpuscular Volume 66.4 fL (80.0-100.0); Nucleated Red Blood Cells % 0.0 %
[2025-06-11] MEDS: ACCU-CHEK COMFORT CURVE STRIP VI SCH (17:32)
[2025-06-11] MEDS: InsuLIN REG 1unit/0.01ml Soln (100units/ml) SC SCH (17:37)
[2025-06-11 18:18] LABS: Anisocytosis Moderate
[2025-06-11] MEDS: IPRATROPIUM BROM 0.5 MG/2.5ML INH SOL NEB SCH (18:29)
[2025-06-11] MEDS: ALBUTEROL SULF 2.5 MG/0.5ML(0.5%) NEB SOLN NEB SCH (18:29)
--- NOTE | 2025-06-11 21:23 | DVHPN2 ---
Progress Note - Dictate Date Seen: Jun 11, 2025 Medical Necessity Reason Pt with a Central, PICC or Fol: Yes The following are medically ne: Oconnor Catheter Subjective Patient seen and examined at bedside, Seems like he is at his baseline mental status Hemoglobin dropped yesterday in the evening, stool occult positive 1 PRBC was given now in the morning at 8.6 repeat 9.5 Swallow evaluation pending vital signs Vital Sign Date Time Temp Pulse Resp B/P (MAP) Pulse Ox O2 Delivery O2 Flow Rate FiO2 06/11/25 18:35 76 18 100 06/11/25 18:29 Room Air* 0 21 06/11/25 17:28 98.0 114/66 (82) 98.0 Total Intake and Output 06/10/25 06/10/25 06/11/25 15:00 23:00 07:00 Intake Total 200 ml 0 ml 700 ml Output Total 150 ml 2800 ml Balance 200 ml -150 ml -2100 ml medications Current Medications Medications Dose Ordered Sig/Renée Route Start Time Stop Time Status Last Admin Dose Admin Morphine Sulfate 2 mg Q4HPRN PRN IV 06/08/25 23:00 Vancomycin HCl 0 ml @ 0 mls/hr PER PHARMACY IV 06/09/25 17:30 Doxycycline Hyclate 100 ml @ 50 mls/hr Q12H IV 06/09/25 17:30 06/11/25 05:34 50 MLS/HR Ondansetron HCl 4 mg Q6HPRN PRN IV 06/09/25 19:00 Pantoprazole Sodium 40 mg BID IV 06/09/25 22:00 06/11/25 09:29 40 MG Dextrose/Sodium Chloride 1,000 ml @ 75 mls/hr [id number] IV 06/10/25 08:45 06/10/25 21:35 75 MLS/HR Ceftriaxone Sodium 50 ml @ 100 mls/hr DAILY@09 IV 06/11/25 09:00 06/11/25 09:27 100 MLS/HR Vancomycin HCl 100 ml @ 200 mls/hr Q12H IV 06/10/25 12:00 06/11/25 12:38 200 MLS/HR Iron Sucrose 110 ml @ 110 mls/hr DAILY@1200 IV 06/10/25 14:45 06/14/25 14:44 06/11/25 13:54 110 MLS/HR Metoprolol Succinate 25 mg DAILY PO 06/11/25 10:00 Amino Acids 0 ml @ 0 mls/hr PER PHARMACY IV 06/11/25 11:45 Albuterol 2.5 mg Q8HR NEB 06/11/25 18:00 06/11/25 18:29 2.5 MG Ipratropium [place] 0.5 mg Q8HR NEB 06/11/25 18:00 06/11/25 18:29 0.5 MG Diagnostic Test (Pha) 1 strip Q6HR 06/11/25 18:00 06/11/25 17:32 1 STRIP Insulin Human Regular FOLLOW SLIDING SCALE Q6HR SC 06/11/25 18:00 Dextrose 50 ml UD IV 06/11/25 12:15 Fat Emulsion Intravenous 50 ml/ Potassium Acetate 40 meq/Potassium Phosphate 22 meq/ Calcium Gluconate 4.65 meq/ Multivitamins 10 ml/Chromium/ Copper/Manganese/ Zinc 1 ml/Amino Acids/Dextrose/ Purified Water 1,346 ml @ 56 mls/hr Q24H3M IV 06/11/25 22:00 06/12/25 21:59 objective HEENT - normocephalic, atraumatic, dry mucous membranes. Neck - full ROM, no LAD, jugular venous distention present Pulmonary - B/L decreased breath sounds with basilar rales cardiovascular - regular S1,S2 heard, no added sounds GI - soft abdomen, non tender, hypooactive A/Ox1 to name only laboratory and microbiology Laboratory Tests 06/11/25 16:19 06/11/25 07:19 Test 06/11/25 07:19 Range/Units Serum Glucose 102 74-106 mg/dL Problems(with codes): (1) Symptomatic anemia (2) Generalized weakness (3) Anemia, unspecified (4) Syncope Prognosis PLAN Keep NPO, swallow eval pending. Given the likely advanced dementia, sepsis with aspiration pna, patient is unstabe for any GI intervention at this time. Continue conservative management. Monitor H&H bid Positive SOB. Continue PPI 40mg IV BID IV iron x5 days 06/10; hold anticoagulation Carafate after swallow passed CT Abd/pel iv con once DAYNA resolves Cntinue IV antibiotics, fluids gentle Avoid nsaids/aspirin/anticoagulation/motrin Plan discussed with: Patient, Other (Dr Castañeda and Dr Yost) CC Plasma Assessment Blood Product Administration S: [id number] DEVI CARRIZALES MD Jun 11, 2025 21:23
[2025-06-11] MEDS: PPN PER PHARMACY IV NR (23:08)
[2025-06-12] VITALS (16 sets, daily range): BP systolic 109–122; BP diastolic 62–78; PULSE 72–109; RESP 16–20; TEMP 97.8–98.8; O2SAT 90–100
[2025-06-12] MEDS: DOXYCYCLINE 100MG/100ML 100 ML IV SCH (03:24)
[2025-06-12 06:30] LABS: Albumin 3.3 g/dL (3.2-4.8); Alkaline Phosphatase 63 U/L (46-116); Anion Gap 10 (5-15); BUN/Creatinine Ratio 28.2 (10.0-20.0); Carbon Dioxide 23 mmol/L (20-31); Glucose 101 mg/dL (74-106); Magnesium 2.2 mg/dL (1.6-2.6); Total Protein 5.7 g/dL (5.7-8.2); Triglycerides 59 mg/dL (< 150)
[2025-06-12 06:44] LABS: Alanine Aminotransferase < 9 U/L (7-40); Bilirubin, Total 1.3 mg/dL (0.2-1.0); Blood Urea Nitrogen 29 mg/dL (9-23); Calcium 8.1 mg/dL (8.7-10.4); Chloride 116 mmol/L (98-107); Potassium 3.4 mmol/L (3.5-5.1); Sodium 149 mmol/L (136-145)
[2025-06-12] MEDS ORDERED: POTASSIUM CHLORIDE 20 MEQ, LIDOCAINE 1% (LOCAL ANESTH.) 2 ML in SODIUM CHL 0.9% 100 ML IV ONE (09:00)
--- NOTE | 2025-06-12 10:41 | DVHPN2 ---
Progress Note - Dictate Date Seen: Jun 11, 2025 Medical Necessity Reason Pt with a Central, PICC or Fol: Yes The following are medically ne: Oconnor Catheter Subjective PT WITH AMS LEUKOCYTOSIS SEVERE ANEMIA GI BLOOD LOSS PMH DIABETES VASCULOPATHY NEUROPATHY CAD HX OF AFIB COPD DEMENTIA AFIB [facility] RESULTS: * Left main calcified, no flow restrictive lesion. * Left anterior descending artery, mild intimal irregularity, rapid tapering extensive small vessel disease typical of diabetes, but no flow restrictive lesion. * Circumflex artery nondominant vessel without any flow restrictive lesion. Again, diffuse disease throughout with small vessel disease. * Right coronary artery, similarly, dominant vessel, no flow restrictive lesion; however, mild diffuse disease with extensive small vessel disease. * Ejection fraction is preserved with an estimated EF of 60% with LVEDP of 8 mmHg. Left ventricular systolic pressure 127. No gradient across the aortic valve. ECHO NL EF vital signs Vital Sign Date Time Temp Pulse Resp B/P (MAP) Pulse Ox O2 Delivery O2 Flow Rate FiO2 06/12/25 08:20 98.1 89 20 116/78 (91) 93 98.1 06/12/25 06:37 Room Air 0.0 06/12/25 06:37 21 Total Intake and Output 06/11/25 06/11/25 06/12/25 15:00 23:00 07:00 Intake Total 150 ml 0 ml Output Total 600 ml 800 ml Balance 150 ml -600 ml -800 ml medications Current Medications Medications Dose Ordered Sig/Renée Route Start Time Stop Time Status Last Admin Dose Admin Morphine Sulfate 2 mg Q4HPRN PRN IV 06/08/25 23:00 Vancomycin HCl 0 ml @ 0 mls/hr PER PHARMACY IV 06/09/25 17:30 Ondansetron HCl 4 mg Q6HPRN PRN IV 06/09/25 19:00 Pantoprazole Sodium 40 mg BID IV 06/09/25 22:00 06/12/25 09:06 40 MG Dextrose/Sodium Chloride 1,000 ml @ 75 mls/hr [id number] IV 06/10/25 08:45 06/12/25 00:45 75 MLS/HR Ceftriaxone Sodium 50 ml @ 100 mls/hr DAILY@09 IV 06/11/25 09:00 06/12/25 09:06 100 MLS/HR Vancomycin HCl 100 ml @ 200 mls/hr Q12H IV 06/10/25 12:00 06/12/25 00:47 200 MLS/HR Iron Sucrose 110 ml @ 110 mls/hr DAILY@1200 IV 06/10/25 14:45 06/14/25 14:44 06/11/25 13:54 110 MLS/HR Metoprolol Succinate 25 mg DAILY PO 06/11/25 10:00 Amino Acids 0 ml @ 0 mls/hr PER PHARMACY IV 06/11/25 11:45 Albuterol 2.5 mg Q8HR NEB 06/11/25 18:00 06/12/25 06:37 2.5 MG Ipratropium [place] 0.5 mg Q8HR NEB 06/11/25 18:00 06/12/25 06:37 0.5 MG Diagnostic Test (Pha) 1 strip Q6HR 06/11/25 18:00 06/12/25 06:00 1 STRIP Insulin Human Regular FOLLOW SLIDING SCALE Q6HR SC 06/11/25 18:00 Dextrose 50 ml UD IV 06/11/25 12:15 Fat Emulsion Intravenous 50 ml/ Potassium Acetate 40 meq/Potassium Phosphate 22 meq/ Calcium Gluconate 4.65 meq/ Multivitamins 10 ml/Chromium/ Copper/Manganese/ Zinc 1 ml/Amino Acids/Dextrose/ Purified Water 1,346 ml @ 56 mls/hr Q24H3M IV 06/11/25 22:00 06/12/25 21:59 06/11/25 23:08 56 MLS/HR Doxycycline Hyclate 100 ml @ 50 mls/hr Q12H IV 06/12/25 03:00 06/12/25 03:24 50 MLS/HR laboratory and microbiology Laboratory Tests 06/12/25 05:05 Test 06/12/25 05:05 Range/Units Serum Glucose 101 74-106 mg/dL Problem List GI BLOOD LOSS PMH DIABETES VASCULOPATHY NEUROPATHY CAD HX OF AFIB COPD DEMENTIA AFIB [facility] RESULTS: * Left main calcified, no flow restrictive lesion. * Left anterior descending artery, mild intimal irregularity, rapid tapering extensive small vessel disease typical of diabetes, but no flow restrictive lesion. * Circumflex artery nondominant vessel without any flow restrictive lesion. Again, diffuse disease throughout with small vessel disease. * Right coronary artery, similarly, dominant vessel, no flow restrictive lesion; however, mild diffuse disease with extensive small vessel disease. * Ejection fraction is preserved with an estimated EF of 60% with LVEDP of 8 mmHg. Left ventricular systolic pressure 127. No gradient across the aortic valve. ECHO NL EF Assessment/Plan SEVERE ANEMIA HOLD PLAVIX AND ALL ANTI COAGULANTS IV FLUID PT WITH METABOLIC ACIDOSIS CORRECT ACIDOSIS TRANSFUSION PRBS KEEP HCT >30 Plan discussed with: Patient CC Plasma Assessment Blood Product Administration S: 0400 KADI MYERS MD Jun 12, 2025 10:41
--- NOTE | 2025-06-12 10:44 | DVHPN2 ---
Progress Note - Dictate Date Seen: Jun 11, 2025 Medical Necessity Reason Pt with a Central, PICC or Fol: Yes The following are medically ne: Oconnor Catheter Subjective PT WITH AMS LEUKOCYTOSIS SEVERE ANEMIA GI BLOOD LOSS PMH DIABETES VASCULOPATHY NEUROPATHY CAD HX OF AFIB COPD DEMENTIA AFIB [facility] RESULTS: * Left main calcified, no flow restrictive lesion. * Left anterior descending artery, mild intimal irregularity, rapid tapering extensive small vessel disease typical of diabetes, but no flow restrictive lesion. * Circumflex artery nondominant vessel without any flow restrictive lesion. Again, diffuse disease throughout with small vessel disease. * Right coronary artery, similarly, dominant vessel, no flow restrictive lesion; however, mild diffuse disease with extensive small vessel disease. * Ejection fraction is preserved with an estimated EF of 60% with LVEDP of 8 mmHg. Left ventricular systolic pressure 127. No gradient across the aortic valve. ECHO NL EF vital signs Vital Sign Date Time Temp Pulse Resp B/P (MAP) Pulse Ox O2 Delivery O2 Flow Rate FiO2 06/12/25 08:20 98.1 89 20 116/78 (91) 93 98.1 06/12/25 06:37 Room Air 0.0 06/12/25 06:37 21 Total Intake and Output 06/11/25 06/11/25 06/12/25 15:00 23:00 07:00 Intake Total 150 ml 0 ml Output Total 600 ml 800 ml Balance 150 ml -600 ml -800 ml medications Current Medications Medications Dose Ordered Sig/Renée Route Start Time Stop Time Status Last Admin Dose Admin Morphine Sulfate 2 mg Q4HPRN PRN IV 06/08/25 23:00 Vancomycin HCl 0 ml @ 0 mls/hr PER PHARMACY IV 06/09/25 17:30 Ondansetron HCl 4 mg Q6HPRN PRN IV 06/09/25 19:00 Pantoprazole Sodium 40 mg BID IV 06/09/25 22:00 06/12/25 09:06 40 MG Dextrose/Sodium Chloride 1,000 ml @ 75 mls/hr [id number] IV 06/10/25 08:45 06/12/25 00:45 75 MLS/HR Ceftriaxone Sodium 50 ml @ 100 mls/hr DAILY@09 IV 06/11/25 09:00 06/12/25 09:06 100 MLS/HR Vancomycin HCl 100 ml @ 200 mls/hr Q12H IV 06/10/25 12:00 06/12/25 00:47 200 MLS/HR Iron Sucrose 110 ml @ 110 mls/hr DAILY@1200 IV 06/10/25 14:45 06/14/25 14:44 06/11/25 13:54 110 MLS/HR Metoprolol Succinate 25 mg DAILY PO 06/11/25 10:00 Amino Acids 0 ml @ 0 mls/hr PER PHARMACY IV 06/11/25 11:45 Albuterol 2.5 mg Q8HR NEB 06/11/25 18:00 06/12/25 06:37 2.5 MG Ipratropium [place] 0.5 mg Q8HR NEB 06/11/25 18:00 06/12/25 06:37 0.5 MG Diagnostic Test (Pha) 1 strip Q6HR 06/11/25 18:00 06/12/25 06:00 1 STRIP Insulin Human Regular FOLLOW SLIDING SCALE Q6HR SC 06/11/25 18:00 Dextrose 50 ml UD IV 06/11/25 12:15 Fat Emulsion Intravenous 50 ml/ Potassium Acetate 40 meq/Potassium Phosphate 22 meq/ Calcium Gluconate 4.65 meq/ Multivitamins 10 ml/Chromium/ Copper/Manganese/ Zinc 1 ml/Amino Acids/Dextrose/ Purified Water 1,346 ml @ 56 mls/hr Q24H3M IV 06/11/25 22:00 06/12/25 21:59 06/11/25 23:08 56 MLS/HR Doxycycline Hyclate 100 ml @ 50 mls/hr Q12H IV 06/12/25 03:00 06/12/25 03:24 50 MLS/HR laboratory and microbiology Laboratory Tests 06/12/25 05:05 Test 06/12/25 05:05 Range/Units Serum Glucose 101 74-106 mg/dL Problem List GI BLOOD LOSS PMH DIABETES VASCULOPATHY NEUROPATHY CAD HX OF AFIB COPD DEMENTIA AFIB [facility] RESULTS: * Left main calcified, no flow restrictive lesion. * Left anterior descending artery, mild intimal irregularity, rapid tapering extensive small vessel disease typical of diabetes, but no flow restrictive lesion. * Circumflex artery nondominant vessel without any flow restrictive lesion. Again, diffuse disease throughout with small vessel disease. * Right coronary artery, similarly, dominant vessel, no flow restrictive lesion; however, mild diffuse disease with extensive small vessel disease. * Ejection fraction is preserved with an estimated EF of 60% with LVEDP of 8 mmHg. Left ventricular systolic pressure 127. No gradient across the aortic valve. ECHO NL EF Assessment/Plan SEVERE ANEMIA HOLD PLAVIX AND ALL ANTI COAGULANTS IV FLUID PT WITH METABOLIC ACIDOSIS CORRECT ACIDOSIS TRANSFUSION PRBS KEEP HCT >30 H/H STABLE TOAYS CBC PENDING IRON REPLACEMENT GAP ACIDOSIS IMPROVING CHECK ABG PT EVAL Plan discussed with: Patient CC Plasma Assessment Blood Product Administration S: 0400 KADI MYERS MD Jun 12, 2025 10:44
--- NOTE | 2025-06-12 11:24 | DVHPN2 ---
Subjective awake/knows his date of but otherwise does nor comprehend/ Changes from previous H/P or p: No Changes Objective Vitals Vital Signs Date Time Temp Pulse Resp B/P (MAP) Pulse Ox O2 Delivery O2 Flow Rate FiO2 06/12/25 08:20 98.1 89 20 116/78 (91) 93 98.1 06/12/25 06:37 Room Air 0.0 06/12/25 06:37 21 Intake/Output Intake and Output 06/12/25 07:00 Intake Total 150 ml Output Total 1400 ml Balance -1250 ml Intake Oral 0 ml IV Total 150 ml Output Urine Total 1400 ml General Appearance: Alert, Cooperative, No acute distress, Other (oriented -1 to self only) Medications Current Medications Medications Dose Ordered Sig/Renée Route Start Time Stop Time Status Last Admin Dose Admin Morphine Sulfate 2 mg Q4HPRN PRN IV 06/08/25 23:00 Vancomycin HCl 0 ml @ 0 mls/hr PER PHARMACY IV 06/09/25 17:30 Ondansetron HCl 4 mg Q6HPRN PRN IV 06/09/25 19:00 Pantoprazole Sodium 40 mg BID IV 06/09/25 22:00 06/12/25 09:06 40 MG Dextrose/Sodium Chloride 1,000 ml @ 75 mls/hr [id number] IV 06/10/25 08:45 06/12/25 00:45 75 MLS/HR Ceftriaxone Sodium 50 ml @ 100 mls/hr DAILY@09 IV 06/11/25 09:00 06/12/25 09:06 100 MLS/HR Vancomycin HCl 100 ml @ 200 mls/hr Q12H IV 06/10/25 12:00 06/12/25 00:47 200 MLS/HR Iron Sucrose 110 ml @ 110 mls/hr DAILY@1200 IV 06/10/25 14:45 06/14/25 14:44 06/11/25 13:54 110 MLS/HR Metoprolol Succinate 25 mg DAILY PO 06/11/25 10:00 Amino Acids 0 ml @ 0 mls/hr PER PHARMACY IV 06/11/25 11:45 Albuterol 2.5 mg Q8HR NEB 06/11/25 18:00 06/12/25 06:37 2.5 MG Ipratropium [place] 0.5 mg Q8HR NEB 06/11/25 18:00 12/7/25 06:37 0.5 MG Diagnostic Test (Pha) 1 strip Q6HR 06/11/25 18:00 06/12/25 06:00 1 STRIP Insulin Human Regular FOLLOW SLIDING SCALE Q6HR SC 06/11/25 18:00 Dextrose 50 ml UD IV 06/11/25 12:15 Fat Emulsion Intravenous 50 ml/ Potassium Acetate 40 meq/Potassium Phosphate 22 meq/ Calcium Gluconate 4.65 meq/ Multivitamins 10 ml/Chromium/ Copper/Manganese/ Zinc 1 ml/Amino Acids/Dextrose/ Purified Water 1,346 ml @ 56 mls/hr Q24H3M IV 06/11/25 22:00 06/12/25 21:59 06/11/25 23:08 56 MLS/HR Doxycycline Hyclate 100 ml @ 50 mls/hr Q12H IV 06/12/25 03:00 06/12/25 03:24 50 MLS/HR Fat Emulsion Intravenous 100 ml/Potassium Acetate 40 meq/ Potassium Phosphate 44 meq/ Calcium Gluconate 2.3 meq/Magnesium Sulfate 6 meq/ Multivitamins 10 ml/Chromium/ Copper/Manganese/ Zinc 1 ml/Amino Acids/Dextrose/ Purified Water 1,647.4462 ml @ 69 mls/hr [id number] IV 06/12/25 22:00 06/13/25 21:59 Laboratory Results Laboratory Tests 06/12/25 05:05 Chemistry Test 06/12/25 05:05 Albumin 3.3 g/dL (3.2-4.8) Calcium Level 8.1 mg/dL (8.7-10.4) L Magnesium Level 2.2 mg/dL (1.6-2.6) Phosphorus Level 2.0 mg/dL (2.4-5.1) L Total Protein 5.7 g/dL (5.7-8.2) Lipid panel Test 06/12/25 05:05 Triglycerides Level 59 mg/dL (< 150) LFT Test 06/12/25 05:05 Alanine Aminotransferase (ALT) < 9 U/L (7-40) Alkaline Phosphatase 63 U/L (46-116) Aspartate Amino Transferase (AST) 15 U/L (13-40) Total Bilirubin 1.3 mg/dL (0.2-1.0) H Urinalysis Test 06/09/25 09:14 Urine Color Light-yellow (Yellow) Urine Clarity Clear (Clear) Urine pH 5.0 (5.0-9.0) Urine Specific [place] 1.014 (1.001-1.035) Urine Protein Negative (Negative) Urine Ketones Negative (Negative) Urine Blood Negative /uL (Negative) Urine Nitrite Negative (Negative) Urine Bilirubin Negative (Negative) Urine Urobilinogen Normal mg/dL (Negative) Urine Leukocyte Esterase Negative /uL (Negative) Urine RBC 1 /hpf (0 - 3) Urine Microscopic WBC < 1 /HPF (0-3) Urine Squamous Epithelial Cells None seen /hpf (<5) Urine Bacteria Few /hpf (None Seen) H Urine Glucose Normal mg/dL (Normal) Microbiology Microbiology Date/Time Source Procedure Growth Status 06/08/25 19:00 Blood Blood Culture - Preliminary Resulted Labs and/or images reviewed: Labs reviewed by me, Image(s) reviewed by me Assessment/Plan Assessment/Plan syncope due to gi bleed- was on anticoagulation/off of anticoagulation now/hb stable/per gi no indication for egd or colonoscoipt- stiop all blood thinners and monitor aspiration/alpha streptococcal pneumonia- on ceftriaxone and improving- back to baseline recheck swallowing evaluation in am- if fails family does not want peg tube- they are clear/ patient and friend armando in room paroxysmal atrial fibrillation- high risk for anticoagulation/rate controlled 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
--- NOTE | 2025-06-12 13:07 | DVHPNRES ---
Progress Note Date Seen: Jun 12, 2025 Resident Creating Document: OLYA MARTINEZ RESIDENT Medical Necessity Reason Pt with a Central, PICC or Fol: No The following are medically ne: Oconnor Catheter Subjective Review of Systems 84-year-old male with past medical history is diabetes, dementia, hypertension, coronary artery disease, COPD, atrial fibrillation (on rivaroxaban), anemia sent in from his [facility] for possible syncopal event, altered mental status. History is taken from the medics got the history on scene. Patient was witnessed by facility staff to have an episode were he may have had a brief loss of consciousness. Did not fall or hit his head. Eyes rolled to the back of the head. Did not have any seizure-like activity. When he came to he appeared slightly more confused than his usual. Staff did not notice any facial droop, slurred speech, focal weakness on 1 side of the body. When EMS picked the patient up he had atrial fibrillation in the low 100s on their monitor, noted to be hypotensive to the 70s systolic, was not hypoxic, however, placed on nasal cannula for comfort. Upon arrival to the emergency department the patient denies any discomfort, knows his name, knows that he is in a hospital. 06/12/2025: Patient seen at bedside. patient oriented to self but otherwise not able to comprehend. Patient has hard of hearing, and appears this is his baseline. Stool occult positive. Swallow evaluation pending. Patient kept NPO. Patient is to be discharged on Friday as SNF has availability only on Friday. Patient is a chemical code, okay with BiPAP. Discharge on Friday. Objective vital signs Vital Sign Date Time Temp Pulse Resp B/P (MAP) Pulse Ox O2 Delivery O2 Flow Rate FiO2 06/12/25 12:51 97.8 72 20 113/70 (84) 94 97.8 06/12/25 06:37 Room Air 0.0 06/12/25 06:37 21 Total Intake and Output 06/11/25 06/11/25 06/12/25 15:00 23:00 07:00 Intake Total 150 ml 0 ml Output Total 600 ml 800 ml Balance 150 ml -600 ml -800 ml medications Current Medications Medications Dose Ordered Sig/Renée Route Start Time Stop Time Status Last Admin Dose Admin Pantoprazole Sodium 40 mg BID IV 06/09/25 22:00 06/12/25 09:06 40 MG Ceftriaxone Sodium 50 ml @ 100 mls/hr DAILY@09 IV 06/11/25 09:00 06/12/25 09:06 100 MLS/HR Iron Sucrose 110 ml @ 110 mls/hr DAILY@1200 IV 06/10/25 14:45 06/14/25 14:44 06/11/25 13:54 110 MLS/HR Metoprolol Succinate 25 mg DAILY PO 06/11/25 10:00 Amino Acids 0 ml @ 0 mls/hr PER PHARMACY IV 06/11/25 11:45 Albuterol 2.5 mg Q8HR NEB 06/11/25 18:00 06/12/25 06:37 2.5 MG Ipratropium [place] 0.5 mg Q8HR NEB 06/11/25 18:00 06/12/25 06:37 0.5 MG Fat Emulsion Intravenous 50 ml/ Potassium Acetate 40 meq/Potassium Phosphate 22 meq/ Calcium Gluconate 4.65 meq/ Multivitamins 10 ml/Chromium/ Copper/Manganese/ Zinc 1 ml/Amino Acids/Dextrose/ Purified Water 1,346 ml @ 56 mls/hr Q24H3M IV 06/11/25 22:00 06/12/25 21:59 06/11/25 23:08 56 MLS/HR Fat Emulsion Intravenous 100 ml/Potassium Acetate 40 meq/ Potassium Phosphate 44 meq/ Calcium Gluconate 2.3 meq/Magnesium Sulfate 6 meq/ Multivitamins 10 ml/Chromium/ Copper/Manganese/ Zinc 1 ml/Amino Acids/Dextrose/ Purified Water 1,647.4462 ml @ 69 mls/hr [id number] IV 06/12/25 22:00 06/13/25 21:59 Examination General: Patient alert to self but not time and place. HEENT: Normocephalic, atraumatic, moist mucous membranes Respiratory/pulmonary: Clear lungs bilaterally, vesicular murmurs present in almost all lung horton, no associated crackles or wheezes. Cardiovascular: Normal heart sounds S1 and S2 with no associated murmurs Abdomen: Abdomen nondistended, there is no pain to palpation in any of the abdominal quadrants, no palpable masses. Extremities: There is no peripheral edema present at the lower extremities. Peripheral Pulses: 3+ Radial (R). 3+ Radial (L). 3+ Dorsalis pedis (R). 3+ Dorsalis pedis(L) Skin: No rashes or pruritus, there is no sacral edema present at this time. Neurological: Intact cranial nerves with no focal neurologic deficits laboratory and microbiology Laboratory Tests 06/12/25 05:05 Test 06/12/25 05:05 Range/Units Serum Glucose 101 74-106 mg/dL Microbiology Date/Time Source Procedure Growth Status 06/08/25 19:00 Blood Blood Culture - Preliminary Resulted Problem List/Assessment/Plan Problem List/Assessment/Plan Sepsis likely due to pneumonia Bacteremia with a Gram-positive cocci in clusters and pairs r/o endocarditis Pneumonia likely aspiration due to Gram+/- bacteria Severe microcytic hypochromic anemia GI bleeding likely upper GI Congestive heart failure, likely systolic h/o COPD, no exacerbation AFib, anticoagulation held because of anemia Cognitive decline Hypertensive heart disease with heart failure - IV fluids, judicious use since the patient has a history of heart failure, lactic acid within normal limits - on IV antibiotics Ceftriaxone - stool occult blood positive, monitor H&H and keep hemoglobin over 7, anticoagulation held - GI consulted, and they recommended patient might benefit from upper endoscopy after he is stable PUD prophylaxis: Protonix DVT prophylaxis: SCDs Discharge on Friday Goals of care discussed with the patient's and friend Kelvin and they said " we do not want him to suffer" and want to make him DNI. Patient is a chemical code, okay with BiPAP. Signed papers for chemical code Code status: DNI, compressions and medications, no intubation Time spent: 38 minutes Plan discussed with Dr. Pritchett Plan discussed with: Patient My Orders My Orders Orders - OLYA MARTINEZ Procedure Category Date Status Time * Swallow Request ST 06/12/25 Transmitted 12:56 CC Plasma Assessment Blood Product Administration S: 0400 Visit Coding STANDARD RES Billing Provider: SONI PRITCHETT MD Date of Service if different f: Jun 12, 2025 Common Visit Codes: [id number] INP/OBS CARE(HIGH) OLYA MARTINEZ Jun 12, 2025 13:07
[2025-06-12 14:05] LABS: Hematocrit 30.8 % (41.0-53.0); Hemoglobin 8.8 g/dL (13.5-17.5); Mean Corpuscular Hemoglobin 20.0 pg (28.0-32.0); Mean Corpuscular Volume 69.7 fL (80.0-100.0); Nucleated Red Blood Cells % 0.4 %
[2025-06-12] MEDS: POTASSIUM PHOSPHATE 22 MEQ in SODIUM CHL 0.9% 100 ML IV ONE (14:09)
[2025-06-12 14:31] LABS: Anisocytosis Moderate
[2025-06-12 14:33] LABS: Ovalocytes FEW
--- NOTE | 2025-06-12 15:38 | DVHPN2 ---
Progress Note Date Seen: Jun 12, 2025 Resident Creating Document: LUIZ FRANCIS RESIDENT Medical Necessity Reason Pt with a Central, PICC or Fol: No The following are medically ne: Oconnor Catheter Subjective Review of Systems 84-year-old male with past medical history is diabetes, dementia, hypertension, coronary artery disease, COPD, atrial fibrillation (on rivaroxaban), [facility] event, altered mental status. History is taken from the medics got the history on scene. Patient was witnessed by facility staff to have an episode were he may have had a brief loss of consciousness. Did not fall or hit his head. Eyes rolled to the back of the head. Did not have any seizure-like activity. When he came to he appeared slightly more confused than his usual. Staff did not notice any facial droop, slurred speech, focal weakness on 1 side of the body. When EMS picked the patient up he had atrial fibrillation in the low 100s on their monitor, noted to be hypotensive to the 70s systolic, was not hypoxic, however, placed on nasal cannula for comfort. Upon arrival to the emergency department the patient denies any discomfort, knows his name, knows that he is in a hospital. 06/10-On my eval, patient is A/Ox1, only oriented to name. Abd soft nontender 06/12-A&O x1, appears baseline. Swallow eval pending. Objective vital signs Vital Sign Date Time Temp Pulse Resp B/P (MAP) Pulse Ox O2 Delivery O2 Flow Rate FiO2 06/12/25 12:51 97.8 72 20 113/70 (84) 94 97.8 06/12/25 08:00 Room Air* 0 21 Total Intake and Output 06/11/25 06/11/25 06/12/25 15:00 23:00 07:00 Intake Total 150 ml 0 ml Output Total 600 ml 800 ml Balance 150 ml -600 ml -800 ml medications Current Medications Medications Dose Ordered Sig/Renée Route Start Time Stop Time Status Last Admin Dose Admin Pantoprazole Sodium 40 mg BID IV 06/09/25 22:00 06/12/25 09:06 40 MG Ceftriaxone Sodium 50 ml @ 100 mls/hr DAILY@09 IV 06/11/25 09:00 06/12/25 09:06 100 MLS/HR Iron Sucrose 110 ml @ 110 mls/hr DAILY@1200 IV 06/10/25 14:45 06/14/25 14:44 06/12/25 13:16 110 MLS/HR Metoprolol Succinate 25 mg DAILY PO 06/11/25 10:00 Amino Acids 0 ml @ 0 mls/hr PER PHARMACY IV 06/11/25 11:45 Albuterol 2.5 mg Q8HR NEB 06/11/25 18:00 06/12/25 13:37 2.5 MG Ipratropium [place] 0.5 mg Q8HR NEB 06/11/25 18:00 06/12/25 13:37 0.5 MG Fat Emulsion Intravenous 50 ml/ Potassium Acetate 40 meq/Potassium Phosphate 22 meq/ Calcium Gluconate 4.65 meq/ Multivitamins 10 ml/Chromium/ Copper/Manganese/ Zinc 1 ml/Amino Acids/Dextrose/ Purified Water 1,346 ml @ 56 mls/hr Q24H3M IV 06/11/25 22:00 06/12/25 21:59 06/11/25 23:08 56 MLS/HR Fat Emulsion Intravenous 100 ml/Potassium Acetate 40 meq/ Potassium Phosphate 44 meq/ Calcium Gluconate 2.3 meq/Magnesium Sulfate 6 meq/ Multivitamins 10 ml/Chromium/ Copper/Manganese/ Zinc 1 ml/Amino Acids/Dextrose/ Purified Water 1,647.4462 ml @ 69 mls/hr [id number] IV 06/12/25 22:00 06/13/25 21:59 Examination Patient lying in bed, in no acute distress General: Thin-appearing, afebrile, palor, mucosae are moist Cardiovascular: Regular S1 and S2. No murmurs, gallops or rubs. No JVD elevation. No pedal edema Respiratory: Normal B/L air entry on room air. Clear lung sounds on auscultation Abdomen: Soft, nontender, nondistended, normoactive bowel sounds, no rebound tenderness, no organomegaly, no masses Psych/Mental Status: A/Ox1 laboratory and microbiology Laboratory Tests 06/12/25 13:10 06/12/25 05:05 Test 06/12/25 05:05 Range/Units Serum Glucose 101 74-106 mg/dL Microbiology Date/Time Source Procedure Growth Status 06/08/25 19:00 Blood Blood Culture - Final Streptococcus mitis/oralis Complete Labs and/or images reviewed: Labs reviewed by me, Image(s) reviewed by me Problem List/Assessment/Plan Problem List/Assessment/Plan Acute blood loss anemia s/p 4 rbcs ?lower GI bleed Iron def anemia Hx of hiatal hernia 2017 Hx of polyps ?Dementia DAYNA Sepsis likely due to pneumonia Pneumonia likely aspiration due to Gram+/- bacteria Severe microcytic hypochromic anemia Congestive heart failure, likely systolic h/o COPD h/o AFib on rivaroxaban, currently held Plan; Recommendation; Keep NPO, swallow eval pending. Given the likely advanced dementia, sepsis with aspiration pna, patient is unstabe for any GI intervention at this time. Continue conservative management. Monitor H&H bid H&H stable. Positive SOB. Continue PPI 40mg IV BID IV iron x5 days 06/10 accu checks [place] after swallow passed CT Abd/pel iv con once DAYNA resolves Patient will benefit from upper and lower EGD once stabilized Cntinue IV antibiotics, fluids gentle Avoid nsaids/aspirin/anticoagulation/motrin Poor prognosis Case discussed with Dr Lan Plan discussed with: Patient CC Plasma Assessment Blood Product Administration S: 0400 LUIZ FRANCIS RESIDENT Jun 12, 2025 15:38
[2025-06-12 15:42] LABS: Base Excess -8.0 mmol/L (-2.0-3.0)
[2025-06-12] MEDS: PPN PER PHARMACY IV NR (22:10)
[2025-06-13] VITALS (12 sets, daily range): BP systolic 104–130; BP diastolic 60–94; PULSE 56–99; RESP 16–19; TEMP 97.9–98.1; O2SAT 90–100
[2025-06-13 07:26] LABS: Hemoglobin 8.3 g/dL (13.5-17.5)
[2025-06-13 07:28] LABS: Hematocrit 28.7 % (41.0-53.0); Mean Corpuscular Hemoglobin 20.1 pg (28.0-32.0); Mean Corpuscular Volume 69.3 fL (80.0-100.0); Nucleated Red Blood Cells % 0.2 %
[2025-06-13 07:42] LABS: Alkaline Phosphatase 59 U/L (46-116); Anion Gap 9 (5-15); BUN/Creatinine Ratio 29.1 (10.0-20.0); Bilirubin, Total 1.0 mg/dL (0.2-1.0); Carbon Dioxide 24 mmol/L (20-31); Magnesium 2.0 mg/dL (1.6-2.6); Potassium 4.1 mmol/L (3.5-5.1)
[2025-06-13 07:51] LABS: Alanine Aminotransferase < 9 U/L (7-40); Albumin 3.1 g/dL (3.2-4.8); Blood Urea Nitrogen 23 mg/dL (9-23); Calcium 7.8 mg/dL (8.7-10.4); Chloride 115 mmol/L (98-107); Glucose 118 mg/dL (74-106); Sodium 148 mmol/L (136-145); Total Protein 5.3 g/dL (5.7-8.2)
[2025-06-13] MEDS ORDERED: DEXTROSE (50%) 50ML SYRG IV PRN (11:45)
[2025-06-13] MEDS: InsuLIN REG 1unit/0.01ml Soln (100units/ml) SC SCH (12:00)
[2025-06-13] MEDS: ACCU-CHEK COMFORT CURVE STRIP VI SCH (12:19)
[2025-06-13] MEDS: POTASSIUM PHOSPHATE 22 MEQ in SODIUM CHL 0.9% 100 ML IV ONE (13:12)
--- NOTE | 2025-06-13 14:53 | DVHPNRES ---
Progress Note Date Seen: Jun 13, 2025 Resident Creating Document: OLYA MARTINEZ RESIDENT Medical Necessity Reason Pt with a Central, PICC or Fol: No The following are medically ne: Oconnor Catheter Subjective Review of Systems 84-year-old male with past medical history is diabetes, dementia, hypertension, coronary artery disease, COPD, atrial fibrillation (on rivaroxaban), anemia sent in from his assisted for possible syncopal event, altered mental status. History is taken from the medics got the history on scene. Patient was witnessed by facility staff to have an episode were he may have had a brief loss of consciousness. Did not fall or hit his head. Eyes rolled to the back of the head. Did not have any seizure-like activity. When he came to he appeared slightly more confused than his usual. Staff did not notice any facial droop, slurred speech, focal weakness on 1 side of the body. When EMS picked the patient up he had atrial fibrillation in the low 100s on their monitor, noted to be hypotensive to the 70s systolic, was not hypoxic, however, placed on nasal cannula for comfort. Upon arrival to the emergency department the patient denies any discomfort, knows his name, knows that he is in a hospital. 06/12/2025: Patient seen at bedside. patient oriented to self but otherwise not able to comprehend. Patient has hard of hearing, and appears this is his baseline. Stool occult positive. Swallow evaluation pending. Patient kept NPO. Patient is to be discharged on Friday as SNF has availability only on Friday. Patient is a chemical code, okay with BiPAP. Discharge on Friday. 06/13/2025: Patient seen at bedside. patient A&O x1, swallow eval pending. Patient kept NPO. On ppn. talk to family about PEG tube after swallow eval. Objective vital signs Vital Sign Date Time Temp Pulse Resp B/P (MAP) Pulse Ox O2 Delivery O2 Flow Rate FiO2 06/13/25 13:12 99 18 100 06/13/25 13:06 Nasal Cannula 2.0 06/13/25 13:06 28 06/13/25 05:00 98.1 123/81 (95) 98.1 Total Intake and Output 06/12/25 06/12/25 06/13/25 15:00 23:00 07:00 Intake Total 50 ml 0 ml Output Total 1200 ml Balance 50 ml -1200 ml 0 ml medications Current Medications Medications Dose Ordered Sig/Renée Route Start Time Stop Time Status Last Admin Dose Admin Pantoprazole Sodium 40 mg BID IV 06/09/25 22:00 06/13/25 09:17 40 MG Ceftriaxone Sodium 50 ml @ 100 mls/hr DAILY@09 IV 06/11/25 09:00 06/13/25 09:17 100 MLS/HR Iron Sucrose 110 ml @ 110 mls/hr DAILY@1200 IV 06/10/25 14:45 06/14/25 14:44 06/13/25 13:09 110 MLS/HR Metoprolol Succinate 25 mg DAILY PO 06/11/25 10:00 Amino Acids 0 ml @ 0 mls/hr PER PHARMACY IV 06/11/25 11:45 Albuterol 2.5 mg Q8HR NEB 06/11/25 18:00 06/13/25 13:06 2.5 MG Ipratropium [place] 0.5 mg Q8HR NEB 06/11/25 18:00 06/13/25 13:06 0.5 MG Fat Emulsion Intravenous 100 ml/Potassium Acetate 40 meq/ Potassium Phosphate 44 meq/ Calcium Gluconate 2.3 meq/Magnesium Sulfate 6 meq/ Multivitamins 10 ml/Chromium/ Copper/Manganese/ Zinc 1 ml/Amino Acids/Dextrose/ Purified Water 1,647.4462 ml @ 69 mls/hr [id number] IV 06/12/25 22:00 06/13/25 21:59 06/12/25 22:10 69 MLS/HR Fat Emulsion Intravenous 150 ml/Potassium Acetate 40 meq/ Potassium Phosphate 44 meq/ Calcium Gluconate 4.65 meq/ Magnesium Sulfate 8 meq/ Multivitamins 10 ml/Chromium/ Copper/Manganese/ Zinc 1 ml/Amino Acids/Dextrose/ Purified Water 1,903 ml @ 79 mls/hr Q24H6M IV 06/13/25 22:00 06/14/25 21:59 Diagnostic Test (Pha) 1 strip Q6HR 06/13/25 12:00 06/13/25 12:19 1 STRIP Insulin Human Regular patient on PPN Q6HR SC 06/13/25 12:00 Dextrose 50 ml UD PRN IV 06/13/25 11:45 Examination General: Patient alert to self but not time and place. HEENT: Normocephalic, atraumatic, moist mucous membranes Respiratory/pulmonary: Clear lungs bilaterally, vesicular murmurs present in almost all lung horton, no associated crackles or wheezes. Cardiovascular: Normal heart sounds S1 and S2 with no associated murmurs Abdomen: Abdomen nondistended, there is no pain to palpation in any of the abdominal quadrants, no palpable masses. Extremities: There is no peripheral edema present at the lower extremities. Peripheral Pulses: 3+ Radial (R). 3+ Radial (L). 3+ Dorsalis pedis (R). 3+ Dorsalis pedis(L) Skin: No rashes or pruritus, there is no sacral edema present at this time. Neurological: Intact cranial nerves with no focal neurologic deficits laboratory and microbiology Laboratory Tests 06/13/25 07:15 Test 06/13/25 07:15 Range/Units Serum Glucose 118 H 74-106 mg/dL Microbiology Date/Time Source Procedure Growth Status 06/08/25 19:00 Blood Blood Culture - Final Streptococcus mitis/oralis Complete Problem List/Assessment/Plan Problem List/Assessment/Plan Sepsis likely due to pneumonia Bacteremia with a Gram-positive cocci in clusters and pairs r/o endocarditis Pneumonia likely aspiration due to Gram+/- bacteria Severe microcytic hypochromic anemia GI bleeding likely upper GI Congestive heart failure, likely systolic h/o COPD, no exacerbation AFib, anticoagulation held because of anemia Cognitive decline Hypertensive heart disease with heart failure - IV fluids, judicious use since the patient has a history of heart failure, lactic acid within normal limits - on IV antibiotics Ceftriaxone - stool occult blood positive, monitor H&H and keep hemoglobin over 7, anticoagulation held - GI consulted, and they recommended patient might benefit from upper endoscopy after he is stable PUD prophylaxis: Protonix DVT prophylaxis: SCDs Discharge on Friday Goals of care discussed with the patient's and friend Kelvin and they said " we do not want him to suffer" and want to make him DNI. Patient is a chemical code, okay with BiPAP. Signed papers for chemical code Code status: DNI, compressions and medications, no intubation Time spent: 38 minutes Plan discussed with Dr. Brennan Farr discussed with: Patient My Orders My Orders Orders - OLYA MARTINEZ RESIDENT Procedure Category Date Status Time Discontinue Tele THEO 06/13/25 In Process 09:49 Transfer Orders XFER 06/13/25 Transmitted 09:49 Dietary Evaluation Review Comments: Nutrition Recommendation: 1) Advance to diet as medically feasible, per SPT approval 2) PPN to supply >75% estimated needs 3) Slowly titrate PPN to prevent refeeding syndrom 4) Monitor NPO status, lab values, weight trend, and I/O Expected Outcomes/Goals: Intake to meet >75% estimated needs Lab values to improve FU 2-3 days CC Plasma Assessment Blood Product Administration S: 0400 Visit Coding STANDARD RES Billing Provider: OSORIO DALY MD Date of Service if different f: Jun 13, 2025 Common Visit Codes: [id number] INP/OBS CARE(HIGH) OLYA MARTINEZ RESIDENT Jun 13, 2025 14:53
--- NOTE | 2025-06-13 16:55 | DVHPN2 ---
Progress Note - Dictate Date Seen: Jun 13, 2025 Medical Necessity Reason Pt with a Central, PICC or Fol: No The following are medically ne: Oconnor Catheter Subjective PT WITH AMS LEUKOCYTOSIS SEVERE ANEMIA GI BLOOD LOSS PMH DIABETES VASCULOPATHY NEUROPATHY CAD HX OF AFIB COPD DEMENTIA AFIB [facility] RESULTS: * Left main calcified, no flow restrictive lesion. * Left anterior descending artery, mild intimal irregularity, rapid tapering extensive small vessel disease typical of diabetes, but no flow restrictive lesion. * Circumflex artery nondominant vessel without any flow restrictive lesion. Again, diffuse disease throughout with small vessel disease. * Right coronary artery, similarly, dominant vessel, no flow restrictive lesion; however, mild diffuse disease with extensive small vessel disease. * Ejection fraction is preserved with an estimated EF of 60% with LVEDP of 8 mmHg. Left ventricular systolic pressure 127. No gradient across the aortic valve. ECHO NL EF vital signs Vital Sign Date Time Temp Pulse Resp B/P (MAP) Pulse Ox O2 Delivery O2 Flow Rate FiO2 06/13/25 13:12 99 18 100 06/13/25 13:06 Nasal Cannula 2.0 06/13/25 13:06 28 06/13/25 05:00 98.1 123/81 (95) 98.1 Total Intake and Output 06/12/25 06/12/25 06/13/25 15:00 23:00 07:00 Intake Total 50 ml 0 ml Output Total 1200 ml Balance 50 ml -1200 ml 0 ml medications Current Medications Medications Dose Ordered Sig/Renée Route Start Time Stop Time Status Last Admin Dose Admin Pantoprazole Sodium 40 mg BID IV 06/09/25 22:00 06/13/25 09:17 40 MG Ceftriaxone Sodium 50 ml @ 100 mls/hr DAILY@09 IV 06/11/25 09:00 06/13/25 09:17 100 MLS/HR Iron Sucrose 110 ml @ 110 mls/hr DAILY@1200 IV 06/10/25 14:45 06/14/25 14:44 06/13/25 13:09 110 MLS/HR Metoprolol Succinate 25 mg DAILY PO 06/11/25 10:00 Amino Acids 0 ml @ 0 mls/hr PER PHARMACY IV 06/11/25 11:45 Albuterol 2.5 mg Q8HR NEB 06/11/25 18:00 06/13/25 13:06 2.5 MG Ipratropium [place] 0.5 mg Q8HR NEB 06/11/25 18:00 06/13/25 13:06 0.5 MG Fat Emulsion Intravenous 100 ml/Potassium Acetate 40 meq/ Potassium Phosphate 44 meq/ Calcium Gluconate 2.3 meq/Magnesium Sulfate 6 meq/ Multivitamins 10 ml/Chromium/ Copper/Manganese/ Zinc 1 ml/Amino Acids/Dextrose/ Purified Water 1,647.4462 ml @ 69 mls/hr [id number] IV 06/12/25 22:00 06/13/25 21:59 06/12/25 22:10 69 MLS/HR Fat Emulsion Intravenous 150 ml/Potassium Acetate 40 meq/ Potassium Phosphate 44 meq/ Calcium Gluconate 4.65 meq/ Magnesium Sulfate 8 meq/ Multivitamins 10 ml/Chromium/ Copper/Manganese/ Zinc 1 ml/Amino Acids/Dextrose/ Purified Water 1,903 ml @ 79 mls/hr Q24H6M IV 06/13/25 22:00 06/14/25 21:59 Diagnostic Test (Pha) 1 strip Q6HR 06/13/25 12:00 06/13/25 12:19 1 STRIP Insulin Human Regular patient on PPN Q6HR SC 06/13/25 12:00 Dextrose 50 ml UD PRN IV 06/13/25 11:45 laboratory and microbiology Laboratory Tests 06/13/25 07:15 Test 06/13/25 07:15 Range/Units Serum Glucose 118 H 74-106 mg/dL Problem List GI BLOOD LOSS PMH DIABETES VASCULOPATHY NEUROPATHY CAD HX OF AFIB COPD DEMENTIA AFIB [facility] RESULTS: * Left main calcified, no flow restrictive lesion. * Left anterior descending artery, mild intimal irregularity, rapid tapering extensive small vessel disease typical of diabetes, but no flow restrictive lesion. * Circumflex artery nondominant vessel without any flow restrictive lesion. Again, diffuse disease throughout with small vessel disease. * Right coronary artery, similarly, dominant vessel, no flow restrictive lesion; however, mild diffuse disease with extensive small vessel disease. * Ejection fraction is preserved with an estimated EF of 60% with LVEDP of 8 mmHg. Left ventricular systolic pressure 127. No gradient across the aortic valve. ECHO NL EF Assessment/Plan SEVERE ANEMIA HOLD PLAVIX AND ALL ANTI COAGULANTS IV FLUID PT WITH METABOLIC ACIDOSIS CORRECT ACIDOSIS TRANSFUSION PRBS KEEP HCT >30 H/H STABLE TOAYS CBC PENDING IRON REPLACEMENT GAP ACIDOSIS IMPROVING CHECK ABG PT EVAL Dietary Evaluation Review Comments: Nutrition Recommendation: 1) Advance to diet as medically feasible, per SPT approval 2) PPN to supply >75% estimated needs 3) Slowly titrate PPN to prevent refeeding syndrom 4) Monitor NPO status, lab values, weight trend, and I/O Expected Outcomes/Goals: Intake to meet >75% estimated needs Lab values to improve FU 2-3 days Plan discussed with: Patient CC Plasma Assessment Blood Product Administration S: 0400 KADI MYERS MD Jun 13, 2025 16:55
[2025-06-14] VITALS (12 sets, daily range): BP systolic 103–123; BP diastolic 63–75; PULSE 71–112; RESP 16–18; TEMP 97.5–98.1; O2SAT 90–100
[2025-06-14 06:48] LABS: Hematocrit 29.1 % (41.0-53.0); Hemoglobin 8.7 g/dL (13.5-17.5); Mean Corpuscular Hemoglobin 20.5 pg (28.0-32.0); Mean Corpuscular Volume 68.9 fL (80.0-100.0); Nucleated Red Blood Cells % 0.1 %
[2025-06-14 06:55] LABS: Alkaline Phosphatase 61 U/L (46-116); Anion Gap 8 (5-15); BUN/Creatinine Ratio 31.5 (10.0-20.0); Blood Urea Nitrogen 23 mg/dL (9-23); Carbon Dioxide 25 mmol/L (20-31); Magnesium 2.1 mg/dL (1.6-2.6); Potassium 4.3 mmol/L (3.5-5.1); Sodium 144 mmol/L (136-145)
[2025-06-14 06:56] LABS: Bilirubin, Total 1.0 mg/dL (0.2-1.0)
[2025-06-14 06:57] LABS: Alanine Aminotransferase < 9 U/L (7-40); Albumin 3.1 g/dL (3.2-4.8); Calcium 8.0 mg/dL (8.7-10.4); Chloride 111 mmol/L (98-107); Glucose 116 mg/dL (74-106); Total Protein 5.6 g/dL (5.7-8.2)
--- NOTE | 2025-06-14 12:31 | DVHPN2 ---
Progress Note Date Seen: Jun 14, 2025 Resident Creating Document: LUIZ FRANCIS RESIDENT Medical Necessity Reason Pt with a Central, PICC or Fol: No The following are medically ne: Oconnor Catheter Subjective Review of Systems 84-year-old male with past medical history is diabetes, dementia, hypertension, coronary artery disease, COPD, atrial fibrillation (on rivaroxaban), anemia sent in from his [facility] for possible syncopal event, altered mental status. History is taken from the medics got the history on scene. Patient was witnessed by facility staff to have an episode were he may have had a brief loss of consciousness. Did not fall or hit his head. Eyes rolled to the back of the head. Did not have any seizure-like activity. When he came to he appeared slightly more confused than his usual. Staff did not notice any facial droop, slurred speech, focal weakness on 1 side of the body. When EMS picked the patient up he had atrial fibrillation in the low 100s on their monitor, noted to be hypotensive to the 70s systolic, was not hypoxic, however, placed on nasal cannula for comfort. Upon arrival to the emergency department the patient denies any discomfort, knows his name, knows that he is in a hospital. Patient seen and examined. A&O times 1 only to date of . Objective vital signs Vital Sign Date Time Temp Pulse Resp B/P (MAP) Pulse Ox O2 Delivery O2 Flow Rate FiO2 06/14/25 09:25 112 103/75 06/14/25 08:59 98.1 17 97 98.1 06/14/25 08:10 Nasal Cannula* 2 28 Total Intake and Output 06/13/25 06/13/25 06/14/25 15:00 23:00 07:00 Intake Total 160 ml 105 ml 0 ml Output Total 725 ml 900 ml Balance 160 ml -620 ml -900 ml medications Current Medications Medications Dose Ordered Sig/Renée Route Start Time Stop Time Status Last Admin Dose Admin Pantoprazole Sodium 40 mg BID IV 06/09/25 22:00 06/14/25 09:08 40 MG Ceftriaxone Sodium 50 ml @ 100 mls/hr DAILY@09 IV 06/11/25 09:00 06/14/25 09:08 100 MLS/HR Iron Sucrose 110 ml @ 110 mls/hr DAILY@1200 IV 06/10/25 14:45 06/14/25 14:44 06/14/25 12:03 110 MLS/HR Metoprolol Succinate 25 mg DAILY PO 06/11/25 10:00 Amino Acids 0 ml @ 0 mls/hr PER PHARMACY IV 06/11/25 11:45 Albuterol 2.5 mg Q8HR NEB 06/11/25 18:00 06/14/25 06:20 2.5 MG Ipratropium [place] 0.5 mg Q8HR NEB 06/11/25 18:00 06/14/25 06:20 0.5 MG Fat Emulsion Intravenous 150 ml/Potassium Acetate 40 meq/ Potassium Phosphate 44 meq/ Calcium Gluconate 4.65 meq/ Magnesium Sulfate 8 meq/ Multivitamins 10 ml/Chromium/ Copper/Manganese/ Zinc 1 ml/Amino Acids/Dextrose/ Purified Water 1,903 ml @ 79 mls/hr Q24H6M IV 06/13/25 22:00 06/14/25 21:59 06/13/25 22:16 79 MLS/HR Diagnostic Test (Pha) 1 strip Q6HR 06/13/25 12:00 06/14/25 12:02 1 STRIP Insulin Human Regular patient on PPN Q6HR SC 06/13/25 12:00 06/14/25 12:03 2 UNITS Dextrose 50 ml UD PRN IV 06/13/25 11:45 Fat Emulsion Intravenous 150 ml/Potassium Acetate 30 meq/ Potassium Phosphate 44 meq/ Calcium Gluconate 4.65 meq/ Magnesium Sulfate 10 meq/ Multivitamins 10 ml/Chromium/ Copper/Manganese/ Zinc 1 ml/Amino Acids/Dextrose/ Purified Water 1,998.5 ml @ 83 mls/hr Q24H5M IV 06/14/25 22:00 06/15/25 21:59 Examination Patient lying in bed, in no acute distress General: Thin-appearing, afebrile, palor, mucosae are moist Cardiovascular: Regular S1 and S2. No murmurs, gallops or rubs. No JVD elevation. No pedal edema Respiratory: Normal B/L air entry on room air. Clear lung sounds on auscultation Abdomen: Soft, nontender, nondistended, normoactive bowel sounds, no rebound tenderness, no organomegaly, no masses Psych/Mental Status: A/Ox1 laboratory and microbiology Laboratory Tests 06/14/25 06:05 Test 06/14/25 06:05 Range/Units Serum Glucose 116 H 74-106 mg/dL Microbiology Date/Time Source Procedure Growth Status 06/13/25 11:10 Blood Blood Culture - Preliminary NO GROWTH AFTER 24 HOURS OF INCUBATION. Resulted Labs and/or images reviewed: Labs reviewed by me, Image(s) reviewed by me Problem List/Assessment/Plan Problem List/Assessment/Plan Acute blood loss anemia s/p 4 rbcs ?lower GI bleed Iron def anemia Hx of hiatal hernia 2017 Hx of polyps ?Dementia DAYNA Sepsis likely due to pneumonia Pneumonia likely aspiration due to Gram+/- bacteria Severe microcytic hypochromic anemia Congestive heart failure, likely systolic h/o COPD h/o AFib on rivaroxaban, currently held Plan; Recommendation; Keep NPO, swallow eval pending. Given the likely advanced dementia, sepsis with aspiration pna, patient is unstabe for any GI intervention at this time. Continue conservative management. Monitor H&H bid Upper EGD in consideration with PEG tube placement. Pending swallow eval. H&H stable. Positive SOB. Continue PPI 40mg IV BID IV iron x5 days 06/10 accu checks Carafate after swallow passed CT Abd/pel iv con once DAYNA resolves Patient will benefit from upper and lower EGD once stabilized Cntinue IV antibiotics, fluids gentle Avoid nsaids/aspirin/anticoagulation/motrin Poor prognosis Case discussed with Dr Lan Plan discussed with: Other (Nurse) Dietary Evaluation Review Comments: Nutrition Recommendation: 1) Advance to diet as medically feasible, per SPT approval 2) PPN to supply >75% estimated needs 3) Slowly titrate PPN to prevent refeeding syndrom 4) Monitor NPO status, lab values, weight trend, and I/O Expected Outcomes/Goals: Intake to meet >75% estimated needs Lab values to improve FU 2-3 days CC Plasma Assessment Blood Product Administration S: 0400 LUIZ FRANCIS RESIDENT Jun 14, 2025 12:31
[2025-06-14] MEDS: LACTATED RINGER'S 250 ML IV ONE (15:00)
--- NOTE | 2025-06-14 15:29 | DVHPNRES ---
Progress Note Date Seen: Jun 14, 2025 Resident Creating Document: OLYA MARTINEZ RESIDENT Medical Necessity Reason Pt with a Central, PICC or Fol: No The following are medically ne: Oconnor Catheter Subjective Review of Systems 84-year-old male with past medical history is diabetes, dementia, hypertension, coronary artery disease, COPD, atrial fibrillation (on rivaroxaban), anemia sent in from his [facility] for possible syncopal event, altered mental status. History is taken from the medics got the history on scene. Patient was witnessed by facility staff to have an episode were he may have had a brief loss of consciousness. Did not fall or hit his head. Eyes rolled to the back of the head. Did not have any seizure-like activity. When he came to he appeared slightly more confused than his usual. Staff did not notice any facial droop, slurred speech, focal weakness on 1 side of the body. When EMS picked the patient up he had atrial fibrillation in the low 100s on their monitor, noted to be hypotensive to the 70s systolic, was not hypoxic, however, placed on nasal cannula for comfort. Upon arrival to the emergency department the patient denies any discomfort, knows his name, knows that he is in a hospital. 06/12/2025: Patient seen at bedside. patient oriented to self but otherwise not able to comprehend. Patient has hard of hearing, and appears this is his baseline. Stool occult positive. Swallow evaluation pending. Patient kept NPO. Patient is to be discharged on Friday as SNF has availability only on Friday. Patient is a chemical code, okay with BiPAP. Discharge on Friday. 06/13/2025: Patient seen at bedside. patient A&O x1, swallow eval pending. Patient kept NPO. On ppn. talk to family about PEG tube after swallow eval. 06/14/25: Patient is seen at bedside. Patient is A&O x1, Patient passed the swallow evaluation and is recommended to have pureed diet with thin liquids. Patient is to go to [facility] tomorrow. Objective vital signs Vital Sign Date Time Temp Pulse Resp B/P (MAP) Pulse Ox O2 Delivery O2 Flow Rate FiO2 06/14/25 14:42 87 16 98 06/14/25 14:35 Nasal Cannula 2.0 06/14/25 14:35 28 06/14/25 09:25 103/75 06/14/25 08:59 98.1 98.1 Total Intake and Output 06/13/25 06/13/25 06/14/25 15:00 23:00 07:00 Intake Total 160 ml 105 ml 0 ml Output Total 725 ml 900 ml Balance 160 ml -620 ml -900 ml medications Current Medications Medications Dose Ordered Sig/Renée Route Start Time Stop Time Status Last Admin Dose Admin Ceftriaxone Sodium 50 ml @ 100 mls/hr DAILY@09 IV 06/11/25 09:00 06/14/25 09:08 100 MLS/HR Metoprolol Succinate 25 mg DAILY PO 06/11/25 10:00 Albuterol 2.5 mg Q8HR NEB 06/11/25 18:00 06/14/25 14:51 2.5 MG Ipratropium [place] 0.5 mg Q8HR NEB 06/11/25 18:00 06/14/25 14:50 0.5 MG Pantoprazole Sodium 40 mg BID@0600,1700 PO 06/14/25 17:00 Examination General: Patient alert to self but not time and place. HEENT: Normocephalic, atraumatic, moist mucous membranes Respiratory/pulmonary: Clear lungs bilaterally, vesicular murmurs present in almost all lung horton, no associated crackles or wheezes. Cardiovascular: Normal heart sounds S1 and S2 with no associated murmurs Abdomen: Abdomen nondistended, there is no pain to palpation in any of the abdominal quadrants, no palpable masses. Extremities: There is no peripheral edema present at the lower extremities. Peripheral Pulses: 3+ Radial (R). 3+ Radial (L). 3+ Dorsalis pedis (R). 3+ Dorsalis pedis(L) Skin: No rashes or pruritus, there is no sacral edema present at this time. Neurological: Intact cranial nerves with no focal neurologic deficits laboratory and microbiology Laboratory Tests 06/14/25 06:05 Test 06/14/25 06:05 Range/Units Serum Glucose 116 H 74-106 mg/dL Microbiology Date/Time Source Procedure Growth Status 06/13/25 11:10 Blood Blood Culture - Preliminary NO GROWTH AFTER 24 HOURS OF INCUBATION. Resulted Problem List/Assessment/Plan Problem List/Assessment/Plan Sepsis likely due to pneumonia Bacteremia with a Gram-positive cocci in clusters and pairs r/o endocarditis Pneumonia likely aspiration due to Gram+/- bacteria Severe microcytic hypochromic anemia GI bleeding likely upper GI Congestive heart failure, likely systolic h/o COPD, no exacerbation AFib, anticoagulation held because of anemia Cognitive decline Hypertensive heart disease with heart failure - IV fluids, judicious use since the patient has a history of heart failure, lactic acid within normal limits - on IV antibiotics Ceftriaxone - stool occult blood positive, monitor H&H and keep hemoglobin over 7, anticoagulation held - GI consulted, and they recommended patient might benefit from upper endoscopy after he is stable PUD prophylaxis: Protonix DVT prophylaxis: SCDs Discharge on Friday Goals of care discussed with the patient's and friend Kelvin and they said " we do not want him to suffer" and want to make him DNI. Patient is a chemical code, okay with BiPAP. Signed papers for chemical code Code status: DNI, compressions and medications, no intubation Time spent: 38 minutes Plan discussed with Dr. Amin Plan discussed with: Patient Dietary Evaluation Review Comments: Nutrition Recommendation: 1) Advance to diet as medically feasible, per SPT approval 2) PPN to supply >75% estimated needs 3) Slowly titrate PPN to prevent refeeding syndrom 4) Monitor NPO status, lab values, weight trend, and I/O Expected Outcomes/Goals: Intake to meet >75% estimated needs Lab values to improve FU 2-3 days CC Plasma Assessment Blood Product Administration S: 0400 Visit Coding STANDARD RES Billing Provider: OSORIO AMIN MD Date of Service if different f: Jun 14, 2025 Common Visit Codes: [id number] INP/OBS CARE(HIGH) OLYA MARTINEZ RESIDENT Jun 14, 2025 15:29
[2025-06-14] MEDS: PANTOPRAZOLE 40 MG TAB PO SCH (17:00)
[2025-06-14] MEDS ORDERED: PPN PER PHARMACY IV NR (22:00)
[2025-06-15] VITALS (13 sets, daily range): BP systolic 109–127; BP diastolic 68–99; PULSE 97–109; RESP 17–19; TEMP 97.6–98.3; O2SAT 94–100
[2025-06-15 06:15] LABS: Potassium 4.3 mmol/L (3.5-5.1); Sodium 142.0 mmol/L (136-145)
[2025-06-15 06:16] LABS: Anion Gap 9.0 (5-15); Carbon Dioxide 22.0 mmol/L (20-31)
[2025-06-15 06:22] LABS: Magnesium 2.1 mg/dL (1.6-2.6)
[2025-06-15 06:23] LABS: Albumin 3.3 g/dL (3.2-4.8)
[2025-06-15 06:27] LABS: Calcium 8.2 mg/dL (8.7-10.4); Chloride 111.0 mmol/L (98-107); Glucose 139.0 mg/dL (74-106)
[2025-06-15 06:33] LABS: BUN/Creatinine Ratio 29.1 (10.0-20.0)
[2025-06-15 06:36] LABS: Blood Urea Nitrogen 23.0 mg/dL (9-23)
--- NOTE | 2025-06-15 14:02 | DVHPN2 ---
Progress Note - Dictate Date Seen: Jun 15, 2025 Medical Necessity Reason Pt with a Central, PICC or Fol: No The following are medically ne: Oconnor Catheter Subjective PT WITH AMS LEUKOCYTOSIS SEVERE ANEMIA GI BLOOD LOSS PMH DIABETES VASCULOPATHY NEUROPATHY CAD HX OF AFIB COPD DEMENTIA AFIB [facility] RESULTS: * Left main calcified, no flow restrictive lesion. * Left anterior descending artery, mild intimal irregularity, rapid tapering extensive small vessel disease typical of diabetes, but no flow restrictive lesion. * Circumflex artery nondominant vessel without any flow restrictive lesion. Again, diffuse disease throughout with small vessel disease. * Right coronary artery, similarly, dominant vessel, no flow restrictive lesion; however, mild diffuse disease with extensive small vessel disease. * Ejection fraction is preserved with an estimated EF of 60% with LVEDP of 8 mmHg. Left ventricular systolic pressure 127. No gradient across the aortic valve. ECHO NL EF vital signs Vital Sign Date Time Temp Pulse Resp B/P (MAP) Pulse Ox O2 Delivery O2 Flow Rate FiO2 06/15/25 11:00 97.7 99 19 100 06/15/25 09:00 121/79 (93) 06/15/25 08:15 Nasal Cannula* 2 28 Total Intake and Output 06/14/25 06/14/25 06/15/25 15:00 23:00 07:00 Intake Total 200 ml 500 ml Output Total 550 ml 450 ml Balance -350 ml 50 ml medications Current Medications Medications Dose Ordered Sig/Renée Route Start Time Stop Time Status Last Admin Dose Admin Ceftriaxone Sodium 50 ml @ 100 mls/hr DAILY@09 IV 06/11/25 09:00 06/15/25 09:00 100 MLS/HR Metoprolol Succinate 25 mg DAILY PO 06/11/25 10:00 Albuterol 2.5 mg Q8HR NEB 06/11/25 18:00 06/15/25 07:35 2.5 MG Ipratropium [place] 0.5 mg Q8HR NEB 06/11/25 18:00 06/15/25 07:35 0.5 MG Pantoprazole Sodium 40 mg BID@0600,1700 PO 06/14/25 17:00 laboratory and microbiology Laboratory Tests 06/15/25 05:20 06/14/25 06:05 Test 06/15/25 05:20 Range/Units Serum Glucose 139 H 74-106 mg/dL Problem List GI BLOOD LOSS PMH DIABETES VASCULOPATHY NEUROPATHY CAD HX OF AFIB COPD DEMENTIA AFIB C RESULTS: * Left main calcified, no flow restrictive lesion. * Left anterior descending artery, mild intimal irregularity, rapid tapering extensive small vessel disease typical of diabetes, but no flow restrictive lesion. * Circumflex artery nondominant vessel without any flow restrictive lesion. Again, diffuse disease throughout with small vessel disease. * Right coronary artery, similarly, dominant vessel, no flow restrictive lesion; however, mild diffuse disease with extensive small vessel disease. * Ejection fraction is preserved with an estimated EF of 60% with LVEDP of 8 mmHg. Left ventricular systolic pressure 127. No gradient across the aortic valve. ECHO NL EF Assessment/Plan SEVERE ANEMIA HOLD PLAVIX AND ALL ANTI COAGULANTS IV FLUID PT WITH METABOLIC ACIDOSIS CORRECT ACIDOSIS TRANSFUSION PRBS KEEP HCT >30 H/H STABLE TOAYS CBC PENDING IRON REPLACEMENT GAP ACIDOSIS IMPROVING CHECK ABG PT EVAL Dietary Evaluation Review Comments: Nutrition Recommendation: 1) Advance to diet as medically feasible, per SPT approval 2) PPN to supply >75% estimated needs 3) Slowly titrate PPN to prevent refeeding syndrom 4) Monitor NPO status, lab values, weight trend, and I/O Expected Outcomes/Goals: Intake to meet >75% estimated needs Lab values to improve FU 2-3 days Plan discussed with: Patient CC Plasma Assessment Blood Product Administration S: [id number] KADI MYERS MD Jun 15, 2025 14:02
--- NOTE | 2025-06-15 15:13 | DVHPN2 ---
Progress Note Date Seen: Jun 15, 2025 Resident Creating Document: LUIZ FRANCIS RESIDENT Medical Necessity Reason Pt with a Central, PICC or Fol: No The following are medically ne: Oconnor Catheter Subjective Review of Systems Overnight, patient passed swallow eval. Per speech therapist, Pt was seen for dysphagia. pt was able to safely swallow puree diet with thin liquid without s/s of aspiration. Objective vital signs Vital Sign Date Time Temp Pulse Resp B/P (MAP) Pulse Ox O2 Delivery O2 Flow Rate FiO2 06/15/25 13:00 97.6 106 19 109/68 (82) 97 97.6 06/15/25 08:15 Nasal Cannula* 2 28 Total Intake and Output 06/14/25 06/14/25 06/15/25 15:00 23:00 07:00 Intake Total 200 ml 500 ml Output Total 550 ml 450 ml Balance -350 ml 50 ml medications Current Medications Medications Dose Ordered Sig/Renée Route Start Time Stop Time Status Last Admin Dose Admin Ceftriaxone Sodium 50 ml @ 100 mls/hr DAILY@09 IV 06/11/25 09:00 06/15/25 09:00 100 MLS/HR Metoprolol Succinate 25 mg DAILY PO 06/11/25 10:00 Albuterol 2.5 mg Q8HR NEB 06/11/25 18:00 06/15/25 07:35 2.5 MG Ipratropium [place] 0.5 mg Q8HR NEB 06/11/25 18:00 06/15/25 07:35 0.5 MG Pantoprazole Sodium 40 mg BID@0600,1700 PO 06/14/25 17:00 Examination Patient lying in bed, in no acute distress General: Thin-appearing, afebrile, palor, mucosae are moist Cardiovascular: Regular S1 and S2. No murmurs, gallops or rubs. No JVD elevation. No pedal edema Respiratory: Normal B/L air entry on room air. Clear lung sounds on auscultation Abdomen: Soft, nontender, nondistended, normoactive bowel sounds, no rebound tenderness, no organomegaly, no masses Psych/Mental Status: A/Ox1 laboratory and microbiology Laboratory Tests 06/15/25 05:20 06/14/25 06:05 Test 06/15/25 05:20 Range/Units Serum Glucose 139 H 74-106 mg/dL Microbiology Date/Time Source Procedure Growth Status 06/13/25 11:10 Blood Blood Culture - Preliminary NO GROWTH AFTER 48 HOURS OF INCUBATION. Resulted Labs and/or images reviewed: Labs reviewed by me Problem List/Assessment/Plan Problem List/Assessment/Plan Acute blood loss anemia s/p 4 rbcs ?lower GI bleed Iron def anemia Hx of hiatal hernia 2016 Hx of polyps ?Dementia DAYNA Sepsis likely due to pneumonia Pneumonia likely aspiration due to Gram+/- bacteria Severe microcytic hypochromic anemia Congestive heart failure, likely systolic h/o COPD h/o AFib on rivaroxaban, currently held Plan; Recommendation; Continue pureed diet. Patient is stable to be discharged per GI point of view. Continue conservative management. Monitor H&H bid Follow up outpatient with GI services for EGD and colonoscopy. H&H stable. Positive SOB. Continue PPI 40mg p.o. BID, continue Carafate Received IV iron x5 days 06/[address] Abd/pel iv con if active bleeding once DAYNA resolves Avoid nsaids/aspirin/anticoagulation/motrin Poor prognosis Case discussed with Dr Lan Plan discussed with: Patient Dietary Evaluation Review Comments: Nutrition Recommendation: 1) Advance to diet as medically feasible, per SPT approval 2) PPN to supply >75% estimated needs 3) Slowly titrate PPN to prevent refeeding syndrom 4) Monitor NPO status, lab values, weight trend, and I/O Expected Outcomes/Goals: Intake to meet >75% estimated needs Lab values to improve FU 2-3 days CC Plasma Assessment Blood Product Administration S: [id number] LUIZ FRANCIS RESIDENT Jun 15, 2025 15:13
[2025-06-15] MEDS: SUCRALFATE 1 GM/10 ML ORAL SUSP PO SCH (15:15)
--- NOTE | 2025-06-15 15:38 | DVH ---
LEFT UPPER EXTREMITY VENOUS DUPLEX REASON FOR EXAMINATION: Left upper extremity pain and edema. COMPARISON: None TECHNIQUE: Using real-time freeze-frame technique with a high-frequency transducer, multiple longitudinal and transverse sections were obtained. Simultaneous color flow and spectral Doppler imaging was performed. FINDINGS: Deep veins Internal jugular vein: Compressible. No thrombus identified. Expected Doppler flow. Subclavian vein: Expected Doppler flow. Axillary vein: Compressible. No thrombus identified. Expected Doppler flow. Brachial vein: Compressible. No thrombus identified. Expected Doppler flow. There is a catheter within the brachial vein. Radial vein: Compressible. No thrombus identified. Expected Doppler flow. Ulnar vein: Compressible. No thrombus identified. Expected Doppler flow. Superficial veins Cephalic vein: Occluded Basilic vein: Compressible. No thrombus identified. Expected Doppler flow. There is subcutaneous soft tissue edema in the forearm. IMPRESSION: No evidence of deep venous thrombosis. The cephalic vein is occluded. Correlate clinically for superficial thrombophlebitis.
--- NOTE | 2025-06-15 17:45 | DVHPNRES ---
Progress Note Date Seen: Jun 15, 2025 Resident Creating Document: OLYA MARTINEZ RESIDENT Medical Necessity Reason Pt with a Central, PICC or Fol: No The following are medically ne: Oconnor Catheter Subjective Review of Systems 84-year-old male with past medical history is diabetes, dementia, hypertension, coronary artery disease, COPD, atrial fibrillation (on rivaroxaban), anemia sent in from his senior care for possible syncopal event, altered mental status. History is taken from the medics got the history on scene. Patient was witnessed by facility staff to have an episode were he may have had a brief loss of consciousness. Did not fall or hit his head. Eyes rolled to the back of the head. Did not have any seizure-like activity. When he came to he appeared slightly more confused than his usual. Staff did not notice any facial droop, slurred speech, focal weakness on 1 side of the body. When EMS picked the patient up he had atrial fibrillation in the low 100s on their monitor, noted to be hypotensive to the 70s systolic, was not hypoxic, however, placed on nasal cannula for comfort. Upon arrival to the emergency department the patient denies any discomfort, knows his name, knows that he is in a hospital. 06/12/2025: Patient seen at bedside. patient oriented to self but otherwise not able to comprehend. Patient has hard of hearing, and appears this is his baseline. Stool occult positive. Swallow evaluation pending. Patient kept NPO. Patient is to be discharged on Friday as SNF has availability only on Friday. Patient is a chemical code, okay with BiPAP. Discharge on Friday. 06/13/2025: Patient seen at bedside. patient A&O x1, swallow eval pending. Patient kept NPO. On ppn. talk to family about PEG tube after swallow eval. 06/14/25: Patient is seen at bedside. Patient is A&O x1, Patient passed the swallow evaluation and is recommended to have pureed diet with thin liquids. Patient is to go to SNF [facility] tomorrow. 06/15/2025: Patient seen at bedside. patient last swallow eval. Waiting for SNF for IV antibiotics. Objective vital signs Vital Sign Date Time Temp Pulse Resp B/P (MAP) Pulse Ox O2 Delivery O2 Flow Rate FiO2 06/15/25 17:12 98.0 102 19 127/97 (107) 99 98.0 06/15/25 08:15 Nasal Cannula* 2 28 Total Intake and Output 06/14/25 06/14/25 06/15/25 15:00 23:00 07:00 Intake Total 200 ml 500 ml Output Total 550 ml 450 ml Balance -350 ml 50 ml medications Current Medications Medications Dose Ordered Sig/Renée Route Start Time Stop Time Status Last Admin Dose Admin Ceftriaxone Sodium 50 ml @ 100 mls/hr DAILY@09 IV 06/11/25 09:00 06/15/25 09:00 100 MLS/HR Metoprolol Succinate 25 mg DAILY PO 06/11/25 10:00 Albuterol 2.5 mg Q8HR NEB 06/11/25 18:00 06/15/25 15:54 2.5 MG Ipratropium [place] 0.5 mg Q8HR NEB 06/11/25 18:00 06/15/25 15:54 0.5 MG Pantoprazole Sodium 40 mg BID@0600,1700 PO 06/14/25 17:00 Sucralfate 1 gm TID@0600,1130,2200 PO 06/15/25 15:15 Examination General: Patient alert to self but not time and place. HEENT: Normocephalic, atraumatic, moist mucous membranes Respiratory/pulmonary: Clear lungs bilaterally, vesicular murmurs present in almost all lung horton, no associated crackles or wheezes. Cardiovascular: Normal heart sounds S1 and S2 with no associated murmurs Abdomen: Abdomen nondistended, there is no pain to palpation in any of the abdominal quadrants, no palpable masses. Extremities: There is no peripheral edema present at the lower extremities. Peripheral Pulses: 3+ Radial (R). 3+ Radial (L). 3+ Dorsalis pedis (R). 3+ Dorsalis pedis(L) Skin: No rashes or pruritus, there is no sacral edema present at this time. Neurological: Intact cranial nerves with no focal neurologic deficits laboratory and microbiology Laboratory Tests 06/15/25 05:20 06/14/25 06:05 Test 06/15/25 05:20 Range/Units Serum Glucose 139 H 74-106 mg/dL Microbiology Date/Time Source Procedure Growth Status 06/13/25 11:10 Blood Blood Culture - Preliminary NO GROWTH AFTER 48 HOURS OF INCUBATION. Resulted Problem List/Assessment/Plan Problem List/Assessment/Plan Sepsis likely due to pneumonia Bacteremia with a Gram-positive cocci in clusters and pairs r/o endocarditis Pneumonia likely aspiration due to Gram+/- bacteria Severe microcytic hypochromic anemia GI bleeding likely upper GI Congestive heart failure, likely systolic h/o COPD, no exacerbation AFib, anticoagulation held because of anemia Cognitive decline Hypertensive heart disease with heart failure - IV fluids, judicious use since the patient has a history of heart failure, lactic acid within normal limits - on IV antibiotics Ceftriaxone - stool occult blood positive, monitor H&H and keep hemoglobin over 7, anticoagulation held - GI consulted, and they recommended patient might benefit from upper endoscopy after he is stable PUD prophylaxis: Protonix DVT prophylaxis: SCDs Discharge on Friday Goals of care discussed with the patient's and friend Kelvin and they said " we do not want him to suffer" and want to make him DNI. Patient is a chemical code, okay with BiPAP. Signed papers for chemical code Code status: DNI, compressions and medications, no intubation Time spent: 38 minutes Plan discussed with Dr. Amin Plan discussed with: Patient My Orders My Orders Orders - OLYA MARTINEZ RESIDENT Procedure Category Date Status Time Discharge DISCHARGE 06/15/25 Transmitted 11:21 Insert Midline ORDERS 06/15/25 Transmitted 12:01 Ss Consult To Arrange THEO 06/15/25 In Process Home Iv 12:01 Dietary Evaluation Review Comments: Nutrition Recommendation: 1) Advance to diet as medically feasible, per SPT approval 2) PPN to supply >75% estimated needs 3) Slowly titrate PPN to prevent refeeding syndrom 4) Monitor NPO status, lab values, weight trend, and I/O Expected Outcomes/Goals: Intake to meet >75% estimated needs Lab values to improve FU 2-3 days CC Plasma Assessment Blood Product Administration S: 0400 Visit Coding STANDARD RES Billing Provider: OSORIO AMIN MD Date of Service if different f: Jun 15, 2025 Common Visit Codes: 31169-[id number] INP/OBS CARE(HIGH) OLYA MARTINEZ RESIDENT Jun 15, 2025 17:45
[2025-06-16] VITALS (7 sets, daily range): BP systolic 102–117; BP diastolic 55–80; PULSE 78–105; RESP 17–20; TEMP 97.8–98.4; O2SAT 94–100
--- NOTE | 2025-06-16 11:35 | DVHPN2 ---
Progress Note Date Seen: Jun 16, 2025 Resident Creating Document: LUIZ FRANCIS RESIDENT Medical Necessity Reason Pt with a Central, PICC or Fol: No The following are medically ne: Oconnor Catheter Subjective Patient reports: No new complaints Objective vital signs Vital Sign Date Time Temp Pulse Resp B/P (MAP) Pulse Ox O2 Delivery O2 Flow Rate FiO2 06/16/25 10:39 78 18 102/55 99 06/16/25 09:10 98.4 98.4 06/16/25 08:00 Nasal Cannula* 2 28 Total Intake and Output 06/15/25 06/15/25 06/16/25 15:00 23:00 07:00 Intake Total 750 ml 200 ml Output Total 430 ml 100 ml Balance 320 ml 100 ml medications Current Medications Medications Dose Ordered Sig/Renée Route Start Time Stop Time Status Last Admin Dose Admin Ceftriaxone Sodium 50 ml @ 100 mls/hr DAILY@09 IV 06/11/25 09:00 06/16/25 09:00 100 MLS/HR Metoprolol Succinate 25 mg DAILY PO 06/11/25 10:00 Albuterol 2.5 mg Q8HR NEB 06/11/25 18:00 06/16/25 07:09 2.5 MG Ipratropium [place] 0.5 mg Q8HR NEB 06/11/25 18:00 06/16/25 07:09 0.5 MG Pantoprazole Sodium 40 mg BID@0600,1700 PO 06/14/25 17:00 06/16/25 05:07 40 MG Sucralfate 1 gm TID@0600,1130,2200 PO 06/15/25 15:15 06/16/25 05:07 1 GM Examination Patient lying in bed, in no acute distress General: Thin-appearing, afebrile, palor, mucosae are moist Cardiovascular: Regular S1 and S2. No murmurs, gallops or rubs. No JVD elevation. No pedal edema Respiratory: Normal B/L air entry on room air. Clear lung sounds on auscultation Abdomen: Soft, nontender, nondistended, normoactive bowel sounds, no rebound tenderness, no organomegaly, no masses Psych/Mental Status: A/Ox1 laboratory and microbiology Laboratory Tests 06/15/25 05:20 06/14/25 06:05 Test 06/15/25 05:20 Range/Units Serum Glucose 139 H 74-106 mg/dL Microbiology Date/Time Source Procedure Growth Status 06/13/25 11:10 Blood Blood Culture - Preliminary NO GROWTH AFTER 48 HOURS OF INCUBATION. Resulted Labs and/or images reviewed: Labs reviewed by me, Image(s) reviewed by me Problem List/Assessment/Plan Problem List/Assessment/Plan Acute blood loss anemia s/p 4 rbcs ?lower GI bleed Iron def anemia Hx of hiatal hernia 2016 Hx of polyps ?Dementia DAYNA Sepsis likely due to pneumonia Pneumonia likely aspiration due to Gram+/- bacteria Severe microcytic hypochromic anemia Congestive heart failure, likely systolic h/o COPD h/o AFib on rivaroxaban, currently held Plan; Recommendation; Continue pureed diet. Patient is stable to be discharged per GI point of view. Continue conservative management. Monitor H&H bid Follow up outpatient with GI services for EGD and colonoscopy. H&H stable. Positive SOB. Continue PPI 40mg p.o. BID, continue Carafate Received IV iron x5 days 06/[address] Abd/pel iv con if active bleeding once DAYNA resolves Avoid nsaids/aspirin/anticoagulation/motrin Poor prognosis Case discussed with Dr Lan Plan discussed with: Patient, Other (Nurse) My Orders My Orders Orders - LUIZ FRANCIS RESIDENT Procedure Category Date Status Time Sucralfate Susp PHA 06/15/25 In Process (Carafate Susp) 15:15 Dietary Evaluation Review Comments: Nutrition Recommendation: 1) Advance to diet as medically feasible, per SPT approval 2) PPN to supply >75% estimated needs 3) Slowly titrate PPN to prevent refeeding syndrom 4) Monitor NPO status, lab values, weight trend, and I/O Expected Outcomes/Goals: Intake to meet >75% estimated needs Lab values to improve FU 2-3 days CC Plasma Assessment Blood Product Administration S: 0400 LUIZ FRANCIS RESIDENT Jun 16, 2025 11:35
--- NOTE | 2025-06-16 13:13 | DVHPN2 ---
Progress Note - Dictate Date Seen: Jun 16, 2025 Medical Necessity Reason Pt with a Central, PICC or Fol: No The following are medically ne: Whitney Catheter Reason for whitney catheter: Bladder Retention/Obstruc Subjective PT WITH AMS LEUKOCYTOSIS SEVERE ANEMIA GI BLOOD LOSS PMH DIABETES VASCULOPATHY NEUROPATHY CAD HX OF AFIB COPD DEMENTIA AFIB [facility] RESULTS: * Left main calcified, no flow restrictive lesion. * Left anterior descending artery, mild intimal irregularity, rapid tapering extensive small vessel disease typical of diabetes, but no flow restrictive lesion. * Circumflex artery nondominant vessel without any flow restrictive lesion. Again, diffuse disease throughout with small vessel disease. * Right coronary artery, similarly, dominant vessel, no flow restrictive lesion; however, mild diffuse disease with extensive small vessel disease. * Ejection fraction is preserved with an estimated EF of 60% with LVEDP of 8 mmHg. Left ventricular systolic pressure 127. No gradient across the aortic valve. ECHO NL EF vital signs Vital Sign Date Time Temp Pulse Resp B/P (MAP) Pulse Ox O2 Delivery O2 Flow Rate FiO2 06/16/25 10:39 78 18 102/55 99 06/16/25 09:10 98.4 98.4 06/16/25 08:00 Nasal Cannula* 2 28 Total Intake and Output 06/15/25 06/15/25 06/16/25 15:00 23:00 07:00 Intake Total 750 ml 200 ml Output Total 430 ml 100 ml Balance 320 ml 100 ml medications Current Medications Medications Dose Ordered Sig/Renée Route Start Time Stop Time Status Last Admin Dose Admin Ceftriaxone Sodium 50 ml @ 100 mls/hr DAILY@09 IV 06/11/25 09:00 06/16/25 09:00 100 MLS/HR Metoprolol Succinate 25 mg DAILY PO 06/11/25 10:00 Albuterol 2.5 mg Q8HR NEB 06/11/25 18:00 06/16/25 07:09 2.5 MG Ipratropium [place] 0.5 mg Q8HR NEB 06/11/25 18:00 06/16/25 07:09 0.5 MG Pantoprazole Sodium 40 mg BID@0600,1700 PO 06/14/25 17:00 06/16/25 05:07 40 MG Sucralfate 1 gm TID@0600,1130,2200 PO 06/15/25 15:15 06/16/25 05:07 1 GM laboratory and microbiology Laboratory Tests 06/15/25 05:20 06/14/25 06:05 Test 06/15/25 05:20 Range/Units Serum Glucose 139 H 74-106 mg/dL Problem List GI BLOOD LOSS PMH DIABETES VASCULOPATHY NEUROPATHY CAD HX OF AFIB COPD DEMENTIA AFIB [facility] RESULTS: * Left main calcified, no flow restrictive lesion. * Left anterior descending artery, mild intimal irregularity, rapid tapering extensive small vessel disease typical of diabetes, but no flow restrictive lesion. * Circumflex artery nondominant vessel without any flow restrictive lesion. Again, diffuse disease throughout with small vessel disease. * Right coronary artery, similarly, dominant vessel, no flow restrictive lesion; however, mild diffuse disease with extensive small vessel disease. * Ejection fraction is preserved with an estimated EF of 60% with LVEDP of 8 mmHg. Left ventricular systolic pressure 127. No gradient across the aortic valve. ECHO NL EF Assessment/Plan SEVERE ANEMIA HOLD PLAVIX AND ALL ANTI COAGULANTS IV FLUID PT WITH METABOLIC ACIDOSIS CORRECT ACIDOSIS TRANSFUSION PRBS KEEP HCT >30 H/H STABLE TOAYS CBC PENDING IRON REPLACEMENT GAP ACIDOSIS IMPROVING CHECK ABG PT EVAL dc home H/H STABLE Dietary Evaluation Review Comments: Nutrition Recommendation: 1) Advance to diet as medically feasible, per SPT approval 2) PPN to supply >75% estimated needs 3) Slowly titrate PPN to prevent refeeding syndrom 4) Monitor NPO status, lab values, weight trend, and I/O Expected Outcomes/Goals: Intake to meet >75% estimated needs Lab values to improve FU 2-3 days Plan discussed with: Patient CC Plasma Assessment Blood Product Administration S: 0400 KADI MYERS MD Jun 16, 2025 13:13
--- NOTE | 2025-06-16 17:39 | DVHDSRES ---
Discharge Summary Date of Admission Resident Creating Document: OLYA MARTINEZ RESIDENT Jun 08, 2025 at 22:53 Date of Discharge: Jun 16, 2025 Admitting Diagnosis Sepsis likely due to pneumonia Labs/Diagnostic Data: Laboratory Results Test 06/15/25 05:20 06/14/25 17:51 06/14/25 06:05 06/12/25 13:13 Sodium Level 142 mmol/L (136-145) Potassium Level 4.3 mmol/L (3.5-5.1) Chloride Level 111 mmol/L (98-107) Carbon Dioxide Level 22 mmol/L (20-31) Anion Gap 9 (5-15) Blood Urea Nitrogen 23 mg/dL (9-23) Creatinine 0.79 mg/dL (0.700-1.30) Estimated GFR () 120 mL/min Estimated GFR (Non- 99 mL/min BUN/Creatinine Ratio 29.1 (10.0-20.0) Serum Glucose 139 mg/dL (74-106) Calcium Level 8.2 mg/dL (8.7-10.4) Phosphorus Level 2.5 mg/dL (2.4-5.1) Magnesium Level 2.1 mg/dL (1.6-2.6) Albumin 3.3 g/dL (3.2-4.8) POC Glucose 119 mg/dl (70-106) White Blood Count 8.0 10^3/uL (4.4-10.8) Red Blood Count 4.23 10^6/uL (4.5-5.90) Hemoglobin 8.7 g/dL (13.5-17.5) Hematocrit 29.1 % (41.0-53.0) Mean Corpuscular Volume 68.9 fL (80.0-100.0) Mean Corpuscular Hemoglobin 20.5 pg (28.0-32.0) Mean Corpuscular Hemoglobin Concent 29.7 g/dL (32.0-36.0) Red Cell Distribution Width 35.1 % (11.8-14.3) Platelet Count 187 10^3/uL (140-450) Mean Platelet Volume 8.7 fL (6.9-10.8) Neutrophils (%) (Auto) 80.7 % (37.0-80.0) Lymphocytes (%) (Auto) 6.9 % (10.0-50.0) Monocytes (%) (Auto) 9.7 % (0.0-12.0) Eosinophils (%) (Auto) 2.4 % (0.0-7.0) Basophils (%) (Auto) 0.3 % (0.0-2.0) Neutrophils # (Auto) 6.4 10 ^3/uL (1.6-8.6) Lymphocytes # (Auto) 0.5 10 ^3/uL (0.4-5.4) Monocytes # (Auto) 0.8 10 ^3/uL (0-1.3) Eosinophils # (Auto) 0.2 10 ^3/uL (0-0.8) Basophils # (Auto) 0 10 ^3/uL (0-0.2) Nucleated Red Blood Cells 0.1 % Glomerular Filtration Rate Calc 89 mL/min (>90) Total Bilirubin 1.0 mg/dL (0.2-1.0) Aspartate Amino Transferase (AST) 15 U/L (13-40) Alanine Aminotransferase (ALT) < 9 U/L (7-40) Alkaline Phosphatase 61 U/L (46-116) Total Protein 5.6 g/dL (5.7-8.2) Blood Gas Specimen Type Arterial Blood Gas Sample Site Left radial Blood Gas Patient Temperature 37.0 Arterial Blood Date Drawn [id number] Arterial Blood pH 7.315 (7.350-7.450) Arterial Blood Partial Pressure CO2 35.0 mmHg (35.0-48.0) Arterial Blood Partial Pressure O2 61.9 mmHg (83.0-108.0) Arterial Blood HCO3 17.4 mmol/L (21.0-28.0) Arterial Blood Oxygen Saturation 87.2 % (94.0-98.0) Arterial Blood Base Excess -8.0 mmol/L (-2.0-3.0) Arterial Blood Oxyhemoglobin 85.3 % (94.0-98.0) Arterial Blood Carboxyhemoglobin 1.6 % (0.5-1.5) Arterial Blood Methemoglobin 0.6 % (0.0-1.5) Arterial Blood Deoxyhemoglobin 12.5 % (0.0-5.0) Zachery Test Yes Blood Gas Total Hemoglobin 8.90 g/dL (13.5-17.5) Blood Gas Modality Room air FiO2 % 21.0 Test 12/7/25 13:10 06/12/25 05:05 06/11/25 23:09 06/11/25 16:19 Platelet Estimate Adequate Hypochromasia (manual) Moderate Anisocytosis (manual) Moderate Microcytosis Moderate Ovalocytes Few Schistocytes Few Triglycerides Level 59 mg/dL (< 150) Vancomycin Level Trough 14.8 ug/mL (5-10) Poikilocytosis (manual) Test 06/11/25 07:19 06/10/25 05:56 06/09/25 21:51 06/09/25 18:05 Large Platelets Few Polychromasia Slight Target Cells S Direct Bilirubin 0.5 mg/dL (<0.3) Giant Platelets Few Vitamin B12 Level 2877 pg/mL (211-911) Vitamin D 25-Hydroxy 99.1 ng/mL (30.0-100) Folic Acid 12.72 ng/mL (>5.38) Thyroid Stimulating Hormone (TSH) 1.01 uIU/mL (0.55-4.78) Random Vancomycin Level 11.7 ug/mL (5-10) Influenza Type A Antigen Negative (Negative) Influenza Type B Antigen Negative (Negative) SARS-CoV-2 Antigen (Rapid) Negative (NEGATIVE) Stool Occult Blood Positive (Negative) Stool Occult Blood Sample #3 (Negative) Test 06/09/25 17:48 06/09/25 09:14 06/08/25 20:03 06/08/25 19:15 Reticulocyte Count (auto) 2.17 % (0.5-1.5) Lactic Acid Level 1.9 mmol/L (0.4-2.0) Iron Level 15 ug/dL (65-175) Total Iron Binding Capacity 363 ug/dL (250-425) Percent Iron Saturation 4.1 % (20-55) Ferritin 9.2 ng/mL (22-322) Urine Color Light-yellow (Yellow) Urine Clarity Clear (Clear) Urine pH 5.0 (5.0-9.0) Urine Specific [place] 1.014 (1.001-1.035) Urine Protein Negative (Negative) Urine Ketones Negative (Negative) Urine Blood Negative /uL (Negative) Urine Nitrite Negative (Negative) Urine Bilirubin Negative (Negative) Urine Urobilinogen Normal mg/dL (Negative) Urine Leukocyte Esterase Negative /uL (Negative) Urine RBC 1 /hpf (0 - 3) Urine Microscopic WBC < 1 /HPF (0-3) Urine Squamous Epithelial Cells None seen /hpf (<5) Urine Bacteria Few /hpf (None Seen) Urine Glucose Normal mg/dL (Normal) Urine Opiates Screen Neg (NEGATIVE) Urine Fentanyl Screen Neg (NEGATIVE) Urine Barbiturates Screen Neg (NEGATIVE) Urine Phencyclidine Screen Neg (NEGATIVE) Urine Amphetamines Screen Neg (NEGATIVE) Urine Benzodiazepines Screen Neg (NEGATIVE) Urine Cocaine Screen Neg (NEGATIVE) Urine Cannabinoids Screen Neg (NEGATIVE) Troponin I High Sensitivity 56 ng/L (</=54) Venous Blood pH 7.253 (7.320-7.430) Venous Blood pCO2 at Patient Temp 33.8 mmHg (38.0-54.0) Venous Blood pO2 at Patient Temp < 36.5 mmHg (23.0-48.0) Venous Blood HCO3 14.6 mmol/L (22.0-29.0) Venous Blood Base Excess -11.5 mmol/L (-2.0-3.0) Blood Gas Liter Flow 3.00 Test 06/08/25 18:40 06/08/25 18:35 Ammonia 12 umol/L (11-32) Prothrombin Time 19.9 sec (9.3-11.8) Prothrombin Time INR 2.01 (0.9-1.15) Activated Partial Thromboplast Time 32.5 SEC (24.5-34.5) B-Type Natriuretic Peptide 1452.14 pg/mL (0-100) Plasma/Serum Blood Alcohol < 3.0 mg/dL (<10) Other Laboratory Tests 06/15/25 05:20 06/14/25 06:05 Brief Hx & Hospital Course: 84-year-old male with past medical history is diabetes, dementia, hypertension, coronary artery disease, COPD, atrial fibrillation (on rivaroxaban), [facility] event, altered mental status. History is taken from the medics got the history on scene. Patient was witnessed by facility staff to have an episode were he may have had a brief loss of consciousness. Did not fall or hit his head. Eyes rolled to the back of the head. Did not have any seizure-like activity. When he came to he appeared slightly more confused than his usual. Staff did not notice any facial droop, slurred speech, focal weakness on 1 side of the body. When EMS picked the patient up he had atrial fibrillation in the low 100s on their monitor, noted to be hypotensive to the 70s systolic, was not hypoxic, however, placed on nasal cannula for comfort. Upon arrival to the emergency department the patient denies any discomfort, knows his name, knows that he is in a hospital. Brief hospital course : patient oriented to self but otherwise not able to comprehend. Patient has hard of hearing, and appears this is his baseline. Stool occult positive. Swallow evaluation pening. Patient kept NPO. atient is a chemical code, okay with BiPAP. Patient has sepsis likely due to pneumonia, bacteremia with Gram-positive cocci in clusters, ruled out endocarditis. Patient also had likely GI bleeding from upper GI, severe microcytic hypochromic anemia, hypertensive heart disease with heart failure. Patient was given IV fluids, judicious use since patient has history of heart failure, lactic acid was within normal limits. Patient was started on IV antibiotics with ceftriaxone. Patient has stool occult blood positive, monitored H and H and kept hemoglobin over 7. Anticoagulation was held. GI was consulted and they recommended patient might benefit from upper endoscopy after he is stable. Patient passed the swallow eval and was started on thickened liquid diet fluid. patient is stable for discharge with IV antibiotics to SNF. Patient's family has understood his discharge plan. General: Patient alert to self but not time and place. HEENT: Normocephalic, atraumatic, moist mucous membranes Respiratory/pulmonary: Clear lungs bilaterally, vesicular murmurs present in almost all lung horton, no associated crackles or wheezes. Cardiovascular: Normal heart sounds S1 and S2 with no associated murmurs Abdomen: Abdomen nondistended, there is no pain to palpation in any of the abdominal quadrants, no palpable masses. Extremities: There is no peripheral edema present at the lower extremities. Peripheral Pulses: 3+ Radial (R). 3+ Radial (L). 3+ Dorsalis pedis (R). 3+ Dorsalis pedis(L) Skin: No rashes or pruritus, there is no sacral edema present at this time. Neurological: Intact cranial nerves with no focal neurologic deficits Patient is to take Ceftriaxone 1 g IV daily for 10 days Operations or Procedures ORDERING PHYSICIAN: NADIYA MCPHERSON RESIDENT PROCEDURE(s): LUDVT - LT Upper DVT REASON: s/s of dvt ORDER NUMBER(s): [id number], ACCESSION NUMBER(s): [id number] LEFT UPPER EXTREMITY VENOUS DUPLEX REASON FOR EXAMINATION: Left upper extremity pain and edema. COMPARISON: None TECHNIQUE: Using real-time freeze-frame technique with a high-frequency transducer, multiple longitudinal and transverse sections were obtained. Simultaneous color flow and spectral Doppler imaging was performed. FINDINGS: Deep veins Internal jugular vein: Compressible. No thrombus identified. Expected Doppler flow. Subclavian vein: Expected Doppler flow. Axillary vein: Compressible. No thrombus identified. Expected Doppler flow. Brachial vein: Compressible. No thrombus identified. Expected Doppler flow. There is a catheter within the brachial vein. Radial vein: Compressible. No thrombus identified. Expected Doppler flow. Ulnar vein: Compressible. No thrombus identified. Expected Doppler flow. Superficial veins Cephalic vein: Occluded Basilic vein: Compressible. No thrombus identified. Expected Doppler flow. There is subcutaneous soft tissue edema in the forearm. IMPRESSION: No evidence of deep venous thrombosis. The cephalic vein is occluded. Correlate clinically for superficial thrombophlebitis. ATED BY: JASON RODRIGUEZ MD DICTATED DATE/TIME: 06/15/251535 SIGNED BY: JASON RODRIGUEZ MD SIGNED DATE/TIME: 06/15/251535 CC: ORDERING PHYSICIAN: BROOKE MOON MD PROCEDURE(s): HWOCT - HEAD WITHOUT CONTRAST REASON: ALOC/Syncope ORDER NUMBER(s): [id number], ACCESSION NUMBER(s): [id number] CLINICAL HISTORY: ALOC/Syncope TECHNIQUE: Helical scanning was performed of the head from the skull base to the vertex. Multiplanar reconstructions were performed. This exam was performed according to our departmental dose optimization program. Up-to-date CT equipment and radiation dose reduction techniques are utilized as appropriate. CTDI 54 DLP 7 COMPARISON: CT NECK WITHOUT CONTRAST on DOS: 02/01/24, CT NECK WITHOUT CONTRAST on DOS: 02/08/23 FINDINGS: Evaluation is limited due to image degradation secondary to patient motion. There is no evidence for acute intracranial hemorrhage, acute ischemic changes, mass, mass effect, or extra-axial fluid collection. There is no hydrocephalus or midline shift. There is no effacement of the cerebral sulci and basal subarachnoid cisterns. The bocanegra-white matter differentiation is well maintained. There is moderate brain volume loss and chronic small vessel ischemic change. There has been bilateral cataract extraction. The imaged paranasal sinuses are clear. IMPRESSION: Limited exam with no acute intracranial abnormality seen. ATED BY: CALOS TAYLOR MD DICTATED DATE/TIME: 06/08/252007 SIGNED BY: CALOS TAYLOR MD SIGNED DATE/TIME: 06/08/252007 CC: ORDERING PHYSICIAN: BROOKE MOON MD PROCEDURE(s): CXR1 - CHEST XRAY 1 VIEW REASON: Chest Pain ORDER NUMBER(s): [id number], ACCESSION NUMBER(s): [id number] EXAM: XY CHEST XRAY 1 VIEW HISTORY: Chest Pain TECHNIQUE: 1 view of the chest COMPARISON: XY CHEST TWO VIEWS ROUTINE on DOS: 09/13/24 FINDINGS/IMPRESSION: LUNGS: No pleural effusion, consolidation, or pneumothorax. possible peripheral interstitial edema. MEDIASTINUM: Unremarkable. BONES: No acute osseous abnormality. OTHER: None. ATED BY: ELOY JEWELL MD DICTATED DATE/TIME: 06/08/251900 SIGNED BY: ELOY JEWELL MD SIGNED DATE/TIME: 06/08/251900 CC: Condition at Discharge: Stable Final Diagnosis/Problems List Sepsis likely to d/t pneumonia pneumonia with gram +/- bacteria Bacteremia with streptococcus mitis Severe microcytic hypochromic anemia GI bleeding likely upper GI Congestive heart failure, likely systolic h/o COPD, no exacerbation AFib, anticoagulation held because of anemia Cognitive decline, Dementia Hypertensive heart disease with heart failure Discharge Disposition: Assisted Living Facility Discharge Instruct/Medications Diet: Consistent carbohydrate, Cardiac 2g Na,low cholest Diet comment: & CONSISTENT CARB Activity: No Restrictions, As Tolerated Follow Up/Referral: follow up with discharge Clinic in 1 week Follow-up with PCP Medications: As per EMR Scheduled Alendronate Sodium (Alendronate Sodium), 10 MG PO QWEEKLY, (Reported) Atenolol (Atenolol), 50 MG PO DAILY, (Reported) Atorvastatin Calcium (Lipitor), 1 TAB PO QPM, (Reported) Calcium (Calcium), 500 MG PO BID, (Reported) Cholecalciferol (Vitamin D3), 5,000 UNIT PO DAILY, (Reported) Famotidine (Pepcid Tablet), 2 TAB PO DAILY, (Reported) Ferrous Sulfate (Ferrous Sulfate), 1 TAB PO BID Metformin Hydrochloride (Metformin Hcl), 1 TAB PO HS, (Reported) Triamterene & Hydrochlorothiaz (Maxzide), 1 TAB PO DAILY, (Reported) Scheduled PRN Albuterol Sulfate (Ventolin Mdi), 90 MCG IN Q4HP PRN Discharge Statement: "Patient was advised to return to the ER or call 911 if any headaches, dizziness, shortness of breath, chest pain, abdominal pain, bleeding, fevers, or worsening of medical condition. Patient was counseled about treatment plan, medications, possible side effects, patientverbalized understanding. All questions were answered to the best of my ability. This discharge took greater then 30 minutes in planning, reviewing documentation, counseling the patient, and discussing with other team members." ASSESSMENT ASSESSMENT Assessment Sepsis likely to d/t pneumonia pneumonia with gram +/- bacteria Bacteremia with streptococcus mitis Severe microcytic hypochromic anemia GI bleeding likely upper GI Congestive heart failure, likely systolic h/o COPD, no exacerbation AFib, anticoagulation held because of anemia Cognitive decline, Dementia Hypertensive heart disease with heart failure Visit Coding STANDARD RES Billing Provider: OSORIO DALY MD Date of Service if different f: Jun 16, 2025 Common Visit Codes: 94160-RZK/OBS DISCH DAY >30min OLYA MARTINEZ RESIDENT Jun 16, 2025 17:39
--- NOTE | 2025-06-22 19:17 | DVHSR ---
APPROVED REPORT EXAM: Two-dimensional and M-mode echocardiogram with Doppler and color Doppler. Blood Pressure: 108/66 mmHg INDICATION SOB, bacteremia, h/o hfmref RISK FACTORS Height: 5'10, Weight: 152 DIMENSIONS LVDd 3.8 (3.8-5.7cm) LA (2D) 4.4 (1.9-4.0cm) Aortic Root 3.3 (2.0-3.7cm) LVDs 3.0 (2.5-4.0cm) LA (MM) (1.9-4.0cm) Aortic Cusp Exc 0.8 (1.5-2.0cm) EF (%) 40.0 (55-70%) Rt. Atrium 4.8 (1.9-4.0cm) Asc. Aorta cm IVSd 0.8 (0.7-1.1cm) RV (D) 4.5 (1.8-2.4cm) PWd 0.6 (0.7-1.1cm) Mitral Valve Mitral Mitral Stenosis E wave m/s MV Mean GR. 2mmHg A wave m/s MV Peak GR. 108mmHg E/A ratio 0.0 2D MVA cm2 Aortic Valve Aortic Valve Aortic Stenosis V1 0.60m/s AO Mean GR. 28mmHg V2 3.13m/s AO Peak GR. 39mmHg LVOT Diameter 2.0 (1.8-2.4cm) Doppler WILLY 0.60cm2 Tricuspid Valve TR Velocity 3.49m/s RVSP 58mmHg Conclusion Sinus rhythm. Concentric LVH. Biatrial enlargement. Mild aortic root enlargement. RV enlargement. Moderate aortic sclerosis. Thickening and mild calcification of the aortic leaflets. Moderate mitral annular calcification. [id number] thickening of tricuspid valve annulus. Left ventricular function is diminished. EF is about 35-40% with global hypokinesis. Doppler reveals moderate mitral insufficiency with moderate tricuspid regurgitation. Right ventricular systolic pressure of 50 mmHg consistent with severe pulmonary hypertension. No pericardial effusion masses or vegetations.
== END 2025-06-16 13:30 | disposition home or self-care (01) | DRG 871 ==
LOC: ER 18:00 → EDBD 18:00 → OVERFLOW 22:53 → EAST 06-09 16:08 → TELE-EAST 06-10 23:30 → EAST 06-13 14:19
PROVIDERS: ADMIT Student in an Organized Health Care Education/Training Program; ATTEND Student in an Organized Health Care Education/Training Program
PROC: 30233N1 Transfusion of Nonautologous Red Blood Cells into Peripheral Vein, Percutaneous Approach (ICD-10-PCS; 2025-06-09)
PROC: 05HC33Z Insertion of Infusion Device into Left Basilic Vein, Percutaneous Approach (ICD-10-PCS; principal; 2025-06-15)
PROC: B54NZZA Ultrasonography of Left Upper Extremity Veins, Guidance (ICD-10-PCS; 2025-06-15)
DX: A40.8 Other streptococcal sepsis (principal); I50.23 Acute on chronic systolic (congestive) heart failure; J15.4 Pneumonia due to other streptococci; J15.69 Pneumonia due to other Gram-negative bacteria; J15.9 Unspecified bacterial pneumonia; J96.21 Acute and chronic respiratory failure with hypoxia; K92.2 Gastrointestinal hemorrhage, unspecified; E87.20 Acidosis, unspecified; J44.0 Chronic obstructive pulmonary disease with (acute) lower respiratory infection; N17.9 Acute kidney failure, unspecified; I11.0 Hypertensive heart disease with heart failure; E11.40 Type 2 diabetes mellitus with diabetic neuropathy, unspecified; F03.90 Unspecified dementia, unspecified severity, without behavioral disturbance, psychotic disturbance, mood disturbance, and anxiety; D50.9 Iron deficiency anemia, unspecified; D62 Acute posthemorrhagic anemia; Z66 Do not resuscitate; J44.9 Chronic obstructive pulmonary disease, unspecified; I48.0 Paroxysmal atrial fibrillation; I25.10 Atherosclerotic heart disease of native coronary artery without angina pectoris; Z79.84 Long term (current) use of oral hypoglycemic drugs; Z87.891 Personal history of nicotine dependence; Z79.899 Other long term (current) drug therapy
CPT/HCPCS: 36415; 36600; 70450; 71045; 80048; 80053; 80069; 80076; 80202; 80307; 80320; 81001; 82040; 82140; 82270; 82306; 82607; 82728; 82746; 82805; 82962; 83540; 83550; 83605; 83735; 83880; 84100; 84443; 84478; 84484; 85014; 85018; 85025; 85045; 85610; 85730; 86850; 86900; 86901; 86920; 87040; 87077; 87186; 87426; 87804; 92610; 93005; 93306; 93971; 94640; 96361; 96365; 96375; 97163; 99291; G0378; J1100; J1756; J1815; J2003; J2185; J2470